=== PATIENT | male | born 1950 | race Caucasian/White ===

== ENCOUNTER 2018-04-20 06:52 | Day surgery (SDC) | payer MEDICARE, OTHER, SELFPAY ==
[2018-04-12 15:14] VITALS: BMI 27.1
[2018-04-20] VITALS (7 sets, daily range): BP systolic 110–136; BP diastolic 65–76; PULSE 54–63; RESP 10–16; TEMP 35.9–36.2; O2SAT 96–98; BMI 27.1
--- NOTE | 2018-04-20 | PATH_ITS ---
[facility] Accession Number: [id number] . 01 Material submitted: . LEFT AXILLA . 01 Clinical history: . CHRONIC INFECTED CYST . 02 Diagnosis: Skin From Left Axilla: Epidermal inclusion cyst, ruptured and severely inflamed. MRV/04/24/2018 . 02 Electronically signed: . Thiago Cannon MD, Pathologist NPI- [id number] . 01 Gross description: . Received in formalin, labeled 1-chronically infected cyst, left axilla, is an unoriented piece of mcfarlane-white puckered skin with underlying tissue (5.1 x 2.2 x 1.2 cm). The underlying tissue is fatty and irregularly firm directly beneath the skin. The resection margin is inked black. Machine Maintenance slices submitted in cassette A1. ([id number]) /MRV . 02 Pathologist provided ICD-10: L72.0 . 02 CPT . 878112 Performed at: 01 [facility] [address], [place], [place] [id number] MD Mark Sanches MD Phone: [phone] Performed at: 02 [facility] [address] [place], [place] [id number] MD Erik Grace MD Phone: [phone]
--- NOTE | 2018-04-20 07:28 | SUR.OPER ---
Supine on padded OR bed, head on pillow, arms secured on padded arm boards at <90 degrees abduction, legs uncrossed, safety belt at thigh, tape over blanket over lower legs.
--- NOTE | 2018-04-20 07:32 | PM.PREOP ---
Pre-operative Note Interval Note Pre-op Check: History & Physical Reviewed by Physician and Exam Performed H&P completed within 30 days and has changed as indicated here:: no change
[2018-04-20] MEDS: LACTATED RINGERS 1,000 ML 42 ML IV (07:35)
[2018-04-20] MEDS: BUPIVACAINE 0.5% W/ EPI (PF) 30 ML VIAL INJ (08:10)
[2018-04-20] MEDS: CEFAZOLIN 2 GM/100 ML FROZ.PIGGY IV (08:17)
[2018-04-20] MEDS: HYDROCODONE/ACET 5/325 TABLET 2 TAB PO (08:50)
--- NOTE | 2018-04-20 09:00 | PM.OP.1 ---
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 SCOAP protocol was followed. Closure Type: primary Specimen(s): other (Cyst) Implants & Drains: None Estimated Blood Loss (mL): 15 Procedure in detail: The patient was placed supine on the operating room table and underwent general LMA anesthesia. He was prepped and draped in the usual fashion. Elliptical incision was made around the lesion in his left axilla. This was done after injecting local anesthetic. The entire area was excised in what appeared to be normal fat. There was 1 small area adjacent to the excised tissue that also looked like it had been inflamed in the past and I removed it. Hemostasis was achieved with cautery. The wound was irrigated. Local anesthetic infiltrated. The space was closed with interrupted 3 0 Polysorb. The subcu was closed with interrupted 4 0 Polysorb and the skin was closed running for Polysorb subcuticular stitch and Steri-Strips. Complications: none Condition: stable Disposition: PACU Plan for aftercare: Follow-up in the office in about 10-14 days
== END 2018-04-20 09:20 | disposition home or self-care (01) ==
PROVIDERS: PCP Internal Medicine; Visit Provider Specialist
PROC: (CPT 11406; principal; 2018-04-20 07:45)
DX: L72.0 Epidermal cyst (principal); I10 Essential (primary) hypertension; K21.9 Gastro-esophageal reflux disease without esophagitis; F17.210 Nicotine dependence, cigarettes, uncomplicated
CPT/HCPCS: 11406; 12035; 88304; J0690; J1100; J2405; J2704; J3010

== ENCOUNTER 2019-02-06 11:52 | Emergency (ER) | payer MEDICARE, BC, SELFPAY ==
[2019-02-06 11:59] VITALS: BP 139/76; PULSE 61; RESP 21; TEMP 37.1; O2SAT 98; BMI 27.1
[2019-02-06 12:00] VITALS: BP 122/67; PULSE 56; RESP 17; O2SAT 97
[2019-02-06 12:01] VITALS: BP 139/76; PULSE 61; RESP 16; TEMP 37.1; O2SAT 98
--- NOTE | 2019-02-06 12:02 | DI.RAD.S_ITS ---
PROCEDURE: XR CHEST 2V INDICATIONS: sob TECHNIQUE: 2 views of the chest were acquired. COMPARISON: [facility], , CHEST 2 VIEW, 04/09/2015, 20:00. FINDINGS: Surgical changes and devices: None. Lungs and pleura: Lungs are clear. No pleural effusions or pneumothorax. Mediastinum: Mediastinal contours are normal. Heart size is normal. Bones and chest wall: No suspicious bony abnormalities. Soft tissues appear unremarkable. IMPRESSION: No acute pulmonary process. Dictated by: Tawana Love M.D. on 02/06/2019 at 12:39 Approved by: Tawana Love M.D. on 02/06/2019 at 12:39
[2019-02-06 12:18] LABS: Add Manual Diff / Slide Review NO; Basophils Absolute Auto 0 /uL (0-100); Basophils Percent Auto 0.7 % (0-2); Eosinophils Absolute Auto 100 /uL (0-450); Eosinophils Percent Auto 2.5 % (2-4); Hematocrit 40.6 % (41-53); Lymphocytes Absolute Auto 1900 /uL (1100-4500); Lymphocytes Percent Auto 35.4 % (25-40); Mean Corpuscular HGB Conc 34.6 % (30-36); Mean Corpuscular Hemoglobin 33.6 PG (26-34); Monocytes Absolute Auto 400 /uL (0-900); Monocytes Percent Auto 7.2 % (3-14); Neutrophils Absolute Auto 2900 /uL (1500-7000); Neutrophils Percent Auto 54.2 % (50-75); Platelet Count 187 X10^3/uL (150-400); Red Blood Cell Count 4.18 X10^6/uL (4.5-5.9); Red Cell Distribution Width 12.9 % (11.6-14.8); White Blood Cell Count 5.4 X10^3/uL (4.5-11.0)
[2019-02-06 12:28] LABS: BUN Creatinine Ratio 17.5 (6-22); Blood Urea Nitrogen 14 mg/dL (9-20); Calcium 9.5 mg/dL (8.4-10.2); Carbon Dioxide 21 mmol/L (22-32); Chloride 109 mmol/L (98-107); Creatine Kinase 38 U/L (55-170); Estimated Glomerular Filt Rate > 60.0 mL/min (>60); Glucose 101 mg/dL (80-110); HEMOLYSIS < 15 (0-50); Lactate (Lactic Acid) 0.9 mmol/L (0.7-2.1); Magnesium 2.1 mg/dL (1.6-2.3); Sodium 139 mmol/L (137-145)
[2019-02-06 12:36] LABS: Influenza A and B by PCR Rapid Negative (Negative)
[2019-02-06 12:36] LABS: B Type Natriuretic Peptide < 100 (<100)
[2019-02-06 12:39] LABS: Troponin I < 0.012 ng/mL (0.01-0.034)
[2019-02-06 12:44] LABS: Procalcitonin < 0.05 ng/mL (<0.5)
[2019-02-06 13:00] VITALS: BP 120/69; PULSE 57; RESP 19; O2SAT 96
--- NOTE | 2019-02-06 13:09 | ED.SOB ---
HPI - SOB/Dyspnea General Chief Complaint: Shortness of Breath/Dyspnea Stated Complaint: SOB COUGH LIGHT HEADED Time Seen by Provider: 02/06/19 12:08 Source: patient Mode of arrival: ambulatory Limitations: no limitations History of Present Illness This is a 68-year-old male who comes to the emergency department with complaint of shortness of breath. Patient states he felt this way for about a month he has had cough and states it started as an upper respiratory infection cold-like symptoms a month ago. He had some colored nasal discharge which has become clear. He has tried magc-ytu-[id number] remedies such as Vicks vapor rub and Robitussin. He took about a week off work on trying to go back to work yesterday and felt sort of lightheaded. 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 He states that this morning when he got up he felt lightheaded, he feels short of breath with exertion, he denies any chest pressure but does feel sort of tight and like his lungs are codeine or congested. Patient had chills and fevers the 1st 2-3 days of symptoms month ago but not any since then. He denies any edema. Patient does have a past medical history of hypertension and takes lisinopril as well as hydrochlorothiazide which she has not taken for the last 2 or 3 days. He also takes allopurinol for gout and Nexium. He has a remote history of prostatectomy for prostate cancer. He does smoke about 10 cigarettes daily, drinks about 3-4 drinks nightly. He occasionally uses and marijuana. Related Data Home Medications Medication Instructions Recorded Confirmed atorvastatin [Lipitor] 20 mg PO BEDTIME #0 07/12/12 02/06/19 lisinopril 10 mg PO QPM #0 07/12/12 02/06/19 allopurinol 100 mg PO QPM 04/14/18 02/06/19 esomeprazole magnesium 40 mg PO QPM 02/06/19 02/06/19 hydrochlorothiazide 12.5 mg PO QPM 02/06/19 02/06/19 Previous Rx's Medication Instructions Recorded albuterol sulfate 2 puff INHALATION Q4-6H PRN #8 gram 02/06/19 prednisone 50 mg PO DAILY #5 tab 02/06/19 Allergies Allergy/AdvReac Type Severity Reaction Status Date / Time No Known Drug Allergies Allergy Verified 05/10/18 14:49 Review of Systems Review of Systems ROS Unobtainable: All systems reviewed & are unremarkable except as noted in HPI and below Constitutional Denies body ache(s), Denies chills, Denies fever(s), Denies lethargy and Denies weakness ENT Ears, Nose, Mouth, and Throat: Reports nasal congestion Cardiovascular Denies chest pain, Denies syncope, Denies rapid heart rate, Denies edema, Denies irregular heart rhythm, Reports lightheadedness, Denies radiating jaw, neck or arm pain, Denies palpitations, Reports dyspnea, Reports dyspnea on exertion and Denies orthopnea Respiratory Denies change in phlegm color, Denies chest congestion, Reports cough, Reports excessive phlegm production, Denies pain on inspiration, Denies pain with cough, Reports dyspnea, Reports dyspnea on exertion and Denies wheezing Gastrointestinal Gastrointestinal: Denies abdominal pain, Denies melena, Denies hematochezia, Denies change in bowel habits, Denies diarrhea, Denies nausea and Denies vomiting Genitourinary Denies hematuria, Denies dysuria, Denies flank pain, Denies urinary frequency and Denies urinary urgency Neurologic Denies syncope and Denies weakness Endocrine Denies palpitations Allergic/Immunologic Denies wheezing PFSH Medical History Elective surgery (Acute) Elevated cholesterol (Acute) GERD (gastroesophageal reflux disease) (Acute) Gout (Acute) H/O ETOH abuse (Acute) HTN (hypertension) (Acute) Surgical History History of shoulder surgery (Acute) Hx of prostatectomy (Acute) Hx of sinus surgery (Acute) S/P excision of vocal cord nodule (Acute) Social History household members: significant other Smoking Status: Current every day smoker alcohol intake: current Social History household members: significant other Smoking Status: Current every day smoker alcohol intake: current Exam Narrative Exam Narrative: GEN: well nourished, well appearing male, alert and oriented x 3, patient appears to be in mild distress. HEENT: Atraumatic, pupils are equal round reactive to light, extraocular movements are intact, nares are clear, TMs are clear with no fluid, there is no conjunctival pallor. Throat is clear without any exudates, erythema, tonsillar enlargement or uvular deviation HEART: Regular rate and rhythm without murmur, clicks, rubs. No edema bilateral lower extremities. LUNGS:Lungs decreased bilaterally to auscultation, no wheezes, rales, crackles, chest moves symmetrically ABD:bowel sounds normal, soft, non-tender, no guarding, rebound, rigidity, no masses noted, no hepatosplenomegaly :No CVA tenderness MSCL: Non-tender, no muscle atrophy, muscles strength 5/5 upper and lower extremities, full range of motion, normal gait NEURO:CN 2-12 intact, sensation normal Initial Vital Signs Initial Vital Signs: Vital Signs Temperature 98.7 F 02/06/19 11:59 Pulse Rate 61 02/06/19 11:59 Respiratory Rate 21 02/06/19 11:59 Blood Pressure 139/76 02/06/19 11:59 Pulse Oximetry 98 02/06/19 11:59 Scores HEART Score Heart Score history: Slightly Suspicious Heart Score EKG: Normal Heart Score Age: > or = 65 years old Heart Score risk factors: 1-2 risk factors Heart Score troponin: < or = to normal limit Heart Score Total: 3 Wells' Criteria for PE Clinical signs and symptoms of PE: No PE is #1 Dx or equally likely: No Heart rate > 100: No Immobilization at least 3 days or surg in previous 4 weeks: No History of PE or DVT: No Hemoptysis: No Malignancy w/Treatment within 6 months or palliative: No Wells' PE Score total: 0 Course Orders Ordered: ED Orders 02/06/19 12:02 Consult to Respiratory Therapy Evaluate & Treat XR chest 2V Stat EKG-12 Lead Stat 02/06/19 12:08 B Type Natriuretic Peptide Stat Basic Metabolic Panel Stat Complete Blood Count AUTO DIFF Stat D Dimer Stat Lactate (Lactic Acid) Stat Magnesium Stat Procalcitonin Stat Troponin & CK Cardiac Panel Stat 02/06/19 12:16 Influenza A and B by PCR Rapid Stat Vital Signs - 8 hr 02/06/19 13:00 02/06/19 13:30 02/06/19 14:30 Pulse Rate 57 L 53 L 49 L Respiratory Rate 19 22 11 L Blood Pressure [Left Arm] 120/69 117/75 114/72 Pulse Oximetry 96 98 98 MDM - SOB/Dyspnea Lab Data Attestation: I reviewed the patient's lab results. Result diagrams: 02/06/19 12:08 02/06/19 12:08 Lab Results 02/06/19 02/06/19 02/06/19 Range/Units 12:08 12:08 12:08 WBC 5.4 (4.5-11.0) X10^3/uL RBC 4.18 L (4.5-5.9) X10^6/uL Hgb 14.0 (13.5-17.5) g/dL Hct 40.6 L (41-53) % MCV 97.0 (80-100) fL MCH 33.6 (26-34) PG MCHC 34.6 (30-36) % RDW 12.9 (11.6-14.8) % Plt Count 187 (150-400) X10^3/uL Neut % (Auto) 54.2 (50-75) % Lymph % (Auto) 35.4 (25-40) % [place] % (Auto) 7.2 (3-14) % Eos % (Auto) 2.5 (2-4) % Baso % (Auto) 0.7 (0-2) % Neut # (Auto) 2900 (9331-3470) /uL Lymph # (Auto) 1900 (0596-5477) /uL [place] # (Auto) 400 (0-900) /uL Eos # (Auto) 100 (0-450) /uL Baso # (Auto) 0 (0-100) /uL D-Dimer (<230) ng/mL Sodium 139 (137-145) mmol/L Potassium 4.0 (3.4-5.1) mmol/L Chloride 109 H (98-107) mmol/L Carbon Dioxide 21 L (22-32) mmol/L BUN 14 (9-20) mg/dL Creatinine 0.80 (0.66-1.25) mg/dL Estimated GFR > 60.0 (>60) mL/min BUN/Creatinine Ratio 17.5 (6-22) Glucose 101 (80-110) mg/dL Lactate (0.7-2.1) mmol/L Calcium 9.5 (8.4-10.2) mg/dL Magnesium 2.1 (1.6-2.3) mg/dL Total Creatine Kinase 38 L (55-170) U/L CK-MB (CK-2) TNP CK-MB (CK-2) Rel Index TNP Troponin I < 0.012 (0.01-0.034) ng/mL B-Natriuretic Peptide < 100 (<100) Procalcitonin < 0.05 (<0.5) ng/mL Influenza A & B (PCR) (Negative) 02/06/19 02/06/19 02/06/19 Range/Units 12:08 12:08 12:16 WBC (4.5-11.0) X10^3/uL RBC (4.5-5.9) X10^6/uL Hgb (13.5-17.5) g/dL Hct (41-53) % MCV (80-100) fL MCH (26-34) PG MCHC (30-36) % RDW (11.6-14.8) % Plt Count (150-400) X10^3/uL Neut % (Auto) (50-75) % Lymph % (Auto) (25-40) % [place] % (Auto) (3-14) % Eos % (Auto) (2-4) % Baso % (Auto) (0-2) % Neut # (Auto) (0598-4133) /uL Lymph # (Auto) (0501-2715) /uL [place] # (Auto) (0-900) /uL Eos # (Auto) (0-450) /uL Baso # (Auto) (0-100) /uL D-Dimer < 200 (<230) ng/mL Sodium (137-145) mmol/L Potassium (3.4-5.1) mmol/L Chloride (98-107) mmol/L Carbon Dioxide (22-32) mmol/L BUN (9-20) mg/dL Creatinine (0.66-1.25) mg/dL Estimated GFR (>60) mL/min BUN/Creatinine Ratio (6-22) Glucose (80-110) mg/dL Lactate 0.9 (0.7-2.1) mmol/L Calcium (8.4-10.2) mg/dL Magnesium (1.6-2.3) mg/dL Total Creatine Kinase (55-170) U/L CK-MB (CK-2) CK-MB (CK-2) Rel Index Troponin I (0.01-0.034) ng/mL B-Natriuretic Peptide (<100) Procalcitonin (<0.5) ng/mL Influenza A & B (PCR) Negative (Negative) Imaging Data Chest x-ray: Radiologist's impression: [address] [address] XRay Report Signed Patient: Clay To GMR#: [id number] : 9Acct:[id number] Age/Sex: 68 / MDate of Service: 02/06/19 Loc: ED Accession Number: [id number] Procedure: XR chest 2V Ordering Provider: Lolita Sands D.O. PROCEDURE: XR CHEST 2V INDICATIONS: sob TECHNIQUE: 2 views of the chest were acquired. COMPARISON: [facility], , CHEST 2 VIEW, 04/09/2015, 20:00. FINDINGS: Surgical changes and devices: None. Lungs and pleura: Lungs are clear. No pleural effusions or pneumothorax. Mediastinum: Mediastinal contours are normal. Heart size is normal. Bones and chest wall: No suspicious bony abnormalities. Soft tissues appear unremarkable. IMPRESSION: No acute pulmonary process. Dictated by: Tawana Love M.D. on 02/06/2019 at 12:39 Approved by: Tawana Love M.D. on 02/06/2019 at 12:39 ECG Data Attestation: I personally reviewed and interpreted this ECG as follows: Prior ECG tracings: available for review Interpretation: sinus bradycardia with a rate of 59 [place] interval 168 QRS of 93 and QTC of 406. left axis deviation no ST elevation or depression. Patient's prior EKG from 07/12/2012 which appears similar. MDM Narrative Medical decision making narrative: 68-year-old male comes in he has improved while sitting in the department. Has normal vitals. Chest x-ray and lab work did not show any clear changes. Discussed with patient he does have a lot of 40+ pack year history of smoking at close to a pack per day. We discussed that he could be having some COPD. He has even using his girlfriend's albuterol which has been helpful but then his symptoms return. We discussed starting him on some steroids as well as continuing with albuterol and we can give him his own inhaler. If this improves his symptoms he should follow up with his primary care for possibly a steroid inhaler. If he is worsening or not having any improvement he needs to return. Patient is comfortable with this plan. Discharge Plan Departure Patient Disposition: Home Clinical Impression: Dyspnea, COPD (chronic obstructive pulmonary disease) Discharge Date/Time: 02/06/19 15:06 Interventions: ED Discharge Assessment Last Done: 02/06/19 15:06 Instructions: DI for Shortness of Breath Activity Restrictions/Additional Instructions: Follow-up with her primary care physician in the next week for recheck. If you are improved discussed with them about possibly using a steroid inhaler in the future. Take oral steroids once daily until gone. You may use albuterol inhaler 1-2 puffs every 4 hr as needed for wheezing or shortness of breath. Return to the emergency department for new pain, rapidly worsening shortness breath, passing, persistent vomiting, abdominal pain, new swelling in your lower extremities or other new or concerning symptoms. Prescriptions: New prednisone 50 mg tablet 50 mg PO DAILY Qty: 5 RF: 0 albuterol sulfate 90 mcg/actuation HFA aerosol inhaler 2 puff INHALATION Q4-6H PRN (Reason: shortness of breath or wheezing) Qty: 8 RF: 0 No Action atorvastatin [Lipitor] 20 MG tablet 20 mg PO BEDTIME Qty: 0 RF: 0 lisinopril 10 MG tablet 10 mg PO QPM Qty: 0 RF: 0 esomeprazole magnesium 40 mg capsule,delayed release(DR/EC) 40 mg PO QPM RF: 0 hydrochlorothiazide 12.5 mg capsule 12.5 mg PO QPM RF: 0 allopurinol 100 mg Tablet 100 mg PO QPM RF: 0 Referrals: Jerson Webstre MD [Primary Care Provider] -
--- NOTE | 2019-02-06 13:14 | ED_ITS ---
HPI - SOB/Dyspnea General Chief Complaint: Shortness of Breath/Dyspnea Stated Complaint: SOB COUGH LIGHT HEADED Time Seen by Provider: 02/06/19 12:08 Source: patient Mode of arrival: ambulatory Limitations: no limitations History of Present Illness This is a 68-year-old male who comes to the emergency department with complaint of shortness of breath. Patient states he felt this way for about a month he has had cough and states it started as an upper respiratory infection cold-like symptoms a month ago. He had some colored nasal discharge which has become clear. He has tried [id number] remedies such as Vicks vapor rub and Robitussin. He took about a week off work on trying to go back to work yesterday and felt sort of lightheaded. 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 He states that this morning when he got up he felt lightheaded, he feels short of breath with exertion, he denies any chest pressure but does feel sort of tight and like his lungs are codeine or congested. Patient had chills and fevers the 1st 2-3 days of symptoms month ago but not any since then. He denies any edema. Patient does have a past medical history of hypertension and takes lisinopril as well as hydrochlorothiazide which she has not taken for the last 2 or 3 days. He also takes allopurinol for gout and Nexium. He has a remote history of prostatectomy for prostate cancer. He does smoke about 10 cigarettes daily, drinks about 3-4 drinks nightly. He occasionally uses and marijuana. Related Data Home Medications Medication Instructions Recorded Confirmed atorvastatin [Lipitor] 20 mg PO BEDTIME #0 07/12/12 02/06/19 lisinopril 10 mg PO QPM #0 07/12/12 02/06/19 allopurinol 100 mg PO QPM 04/14/18 02/06/19 esomeprazole magnesium 40 mg PO QPM 02/06/19 02/06/19 hydrochlorothiazide 12.5 mg PO QPM 02/06/19 02/06/19 Previous Rx's Medication Instructions Recorded albuterol sulfate 2 puff INHALATION Q4-6H PRN #8 gram 02/06/19 prednisone 50 mg PO DAILY #5 tab 02/06/19 Allergies Allergy/AdvReac Type Severity Reaction Status Date / Time No Known Drug Allergies Allergy Verified 05/10/18 14:49 Review of Systems Review of Systems ROS Unobtainable: All systems reviewed & are unremarkable except as noted in HPI and below Constitutional Denies body ache(s), Denies chills, Denies fever(s), Denies lethargy and Denies weakness ENT Ears, Nose, Mouth, and Throat: Reports nasal congestion Cardiovascular Denies chest pain, Denies syncope, Denies rapid heart rate, Denies edema, Denies irregular heart rhythm, Reports lightheadedness, Denies radiating jaw, neck or arm pain, Denies palpitations, Reports dyspnea, Reports dyspnea on exertion and Denies orthopnea Respiratory Denies change in phlegm color, Denies chest congestion, Reports cough, Reports excessive phlegm production, Denies pain on inspiration, Denies pain with cough, Reports dyspnea, Reports dyspnea on exertion and Denies wheezing Gastrointestinal Gastrointestinal: Denies abdominal pain, Denies melena, Denies hematochezia, Denies change in bowel habits, Denies diarrhea, Denies nausea and Denies vomiting Genitourinary Denies hematuria, Denies dysuria, Denies flank pain, Denies urinary frequency and Denies urinary urgency Neurologic Denies syncope and Denies weakness Endocrine Denies palpitations Allergic/Immunologic Denies wheezing PFSH Medical History Elective surgery (Acute) Elevated cholesterol (Acute) GERD (gastroesophageal reflux disease) (Acute) Gout (Acute) H/O ETOH abuse (Acute) HTN (hypertension) (Acute) Surgical History History of shoulder surgery (Acute) Hx of prostatectomy (Acute) Hx of sinus surgery (Acute) S/P excision of vocal cord nodule (Acute) Social History household members: significant other Smoking Status: Current every day smoker alcohol intake: current Social History household members: significant other Smoking Status: Current every day smoker alcohol intake: current Exam Narrative Exam Narrative: GEN: well nourished, well appearing male, alert and oriented x 3, patient appears to be in mild distress. HEENT: Atraumatic, pupils are equal round reactive to light, extraocular movements are intact, nares are clear, TMs are clear with no fluid, there is no conjunctival pallor. Throat is clear without any exudates, erythema, tonsillar enlargement or uvular deviation HEART: Regular rate and rhythm without murmur, clicks, rubs. No edema bilateral lower extremities. LUNGS:Lungs decreased bilaterally to auscultation, no wheezes, rales, crackles, chest moves symmetrically ABD:bowel sounds normal, soft, non-tender, no guarding, rebound, rigidity, no masses noted, no hepatosplenomegaly :No CVA tenderness MSCL: Non-tender, no muscle atrophy, muscles strength 5/5 upper and lower extremities, full range of motion, normal gait NEURO:CN 2-12 intact, sensation normal Initial Vital Signs Initial Vital Signs: Vital Signs Temperature 98.7 F 02/06/19 11:59 Pulse Rate 61 02/06/19 11:59 Respiratory Rate 21 02/06/19 11:59 Blood Pressure 139/76 02/06/19 11:59 Pulse Oximetry 98 02/06/19 11:59 Scores HEART Score Heart Score history: Slightly Suspicious Heart Score EKG: Normal Heart Score Age: > or = 65 years old Heart Score risk factors: 1-2 risk factors Heart Score troponin: < or = to normal limit Heart Score Total: 3 Wells' Criteria for PE Clinical signs and symptoms of PE: No PE is #1 Dx or equally likely: No Heart rate > 100: No Immobilization at least 3 days or surg in previous 4 weeks: No History of PE or DVT: No Hemoptysis: No Malignancy w/Treatment within 6 months or palliative: No Wells' PE Score total: 0 Course Orders Ordered: ED Orders 02/06/19 12:02 Consult to Respiratory Therapy Evaluate & Treat XR chest 2V Stat EKG-12 Lead Stat 02/06/19 12:08 B Type Natriuretic Peptide Stat Basic Metabolic Panel Stat Complete Blood Count AUTO DIFF Stat D Dimer Stat Lactate (Lactic Acid) Stat Magnesium Stat Procalcitonin Stat Troponin & CK Cardiac Panel Stat 02/06/19 12:16 Influenza A and B by PCR Rapid Stat Vital Signs - 8 hr 02/06/19 13:00 02/06/19 13:30 02/06/19 14:30 Pulse Rate 57 L 53 L 49 L Respiratory Rate 19 22 11 L Blood Pressure [Left Arm] 120/69 117/75 114/72 Pulse Oximetry 96 98 98 MDM - SOB/Dyspnea Lab Data Attestation: I reviewed the patient's lab results. Result diagrams: 02/06/19 12:08 02/06/19 12:08 Lab Results 02/06/19 02/06/19 02/06/19 Range/Units 12:08 12:08 12:08 WBC 5.4 (4.5-11.0) X10^3/uL RBC 4.18 L (4.5-5.9) X10^6/uL Hgb 14.0 (13.5-17.5) g/dL Hct 40.6 L (41-53) % MCV 97.0 (80-100) fL MCH 33.6 (26-34) PG MCHC 34.6 (30-36) % RDW 12.9 (11.6-14.8) % Plt Count 187 (150-400) X10^3/uL Neut % (Auto) 54.2 (50-75) % Lymph % (Auto) 35.4 (25-40) % Floyd % (Auto) 7.2 (3-14) % Eos % (Auto) 2.5 (2-4) % Baso % (Auto) 0.7 (0-2) % Neut # (Auto) 2900 (8734-2548) /uL Lymph # (Auto) 1900 (9638-8782) /uL Floyd # (Auto) 400 (0-900) /uL Eos # (Auto) 100 (0-450) /uL Baso # (Auto) 0 (0-100) /uL D-Dimer (<230) ng/mL Sodium 139 (137-145) mmol/L Potassium 4.0 (3.4-5.1) mmol/L Chloride 109 H (98-107) mmol/L Carbon Dioxide 21 L (22-32) mmol/L BUN 14 (9-20) mg/dL Creatinine 0.80 (0.66-1.25) mg/dL Estimated GFR > 60.0 (>60) mL/min BUN/Creatinine Ratio 17.5 (6-22) Glucose 101 (80-110) mg/dL Lactate (0.7-2.1) mmol/L Calcium 9.5 (8.4-10.2) mg/dL Magnesium 2.1 (1.6-2.3) mg/dL Total Creatine Kinase 38 L (55-170) U/L CK-MB (CK-2) TNP CK-MB (CK-2) Rel Index TNP Troponin I < 0.012 (0.01-0.034) ng/mL B-Natriuretic Peptide < 100 (<100) Procalcitonin < 0.05 (<0.5) ng/mL Influenza A & B (PCR) (Negative) 02/06/19 02/06/19 02/06/19 Range/Units 12:08 12:08 12:16 WBC (4.5-11.0) X10^3/uL RBC (4.5-5.9) X10^6/uL Hgb (13.5-17.5) g/dL Hct (41-53) % MCV (80-100) fL MCH (26-34) PG MCHC (30-36) % RDW (11.6-14.8) % Plt Count (150-400) X10^3/uL Neut % (Auto) (50-75) % Lymph % (Auto) (25-40) % Floyd % (Auto) (3-14) % Eos % (Auto) (2-4) % Baso % (Auto) (0-2) % Neut # (Auto) (7864-6335) /uL Lymph # (Auto) (3939-7909) /uL Floyd # (Auto) (0-900) /uL Eos # (Auto) (0-450) /uL Baso # (Auto) (0-100) /uL D-Dimer < 200 (<230) ng/mL Sodium (137-145) mmol/L Potassium (3.4-5.1) mmol/L Chloride (98-107) mmol/L Carbon Dioxide (22-32) mmol/L BUN (9-20) mg/dL Creatinine (0.66-1.25) mg/dL Estimated GFR (>60) mL/min BUN/Creatinine Ratio (6-22) Glucose (80-110) mg/dL Lactate 0.9 (0.7-2.1) mmol/L Calcium (8.4-10.2) mg/dL Magnesium (1.6-2.3) mg/dL Total Creatine Kinase (55-170) U/L CK-MB (CK-2) CK-MB (CK-2) Rel Index Troponin I (0.01-0.034) ng/mL B-Natriuretic Peptide (<100) Procalcitonin (<0.5) ng/mL Influenza A & B (PCR) Negative (Negative) Imaging Data Chest x-ray: Radiologist's impression: [address] [address] XRay Report Signed Patient: Clay To GMR#: [id number] : 9Acct:[id number] Age/Sex: 68 / MDate of Service: 02/06/19 Loc: ED Accession Number: [id number] Procedure: XR chest 2V Ordering Provider: Lolita Sands D.O. PROCEDURE: XR CHEST 2V INDICATIONS: sob TECHNIQUE: 2 views of the chest were acquired. COMPARISON: Merged With [facility], , CHEST 2 VIEW, 04/09/2015, 20:00. FINDINGS: Surgical changes and devices: None. Lungs and pleura: Lungs are clear. No pleural effusions or pneumothorax. Mediastinum: Mediastinal contours are normal. Heart size is normal. Bones and chest wall: No suspicious bony abnormalities. Soft tissues appear unremarkable. IMPRESSION: No acute pulmonary process. Dictated by: Tawana Love M.D. on 02/06/2019 at 12:39 Approved by: Tawana Love M.D. on 02/06/2019 at 12:39 ECG Data Attestation: I personally reviewed and interpreted this ECG as follows: Prior ECG tracings: available for review Interpretation: sinus bradycardia with a rate of 59 MN interval 168 QRS of 93 and QTC of 406. left axis deviation no ST elevation or depression. Patient's prior EKG from 07/12/2012 which appears similar. MDM Narrative Medical decision making narrative: 68-year-old male comes in he has improved while sitting in the department. Has normal vitals. Chest x-ray and lab work did not show any clear changes. Discussed with patient he does have a lot of 40+ pack year history of smoking at close to a pack per day. We discussed that he could be having some COPD. He has even using his girlfriend's albuterol which has been helpful but then his symptoms return. We discussed starting him on some steroids as well as continuing with albuterol and we can give him his own inhaler. If this improves his symptoms he should follow up with his primary care for possibly a steroid inhaler. If he is worsening or not having any improvement he needs to return. Patient is comfortable with this plan. Discharge Plan Departure Patient Disposition: Home Clinical Impression: Dyspnea, COPD (chronic obstructive pulmonary disease) Discharge Date/Time: 02/06/19 15:06 Interventions: ED Discharge Assessment Last Done: 02/06/19 15:06 Instructions: DI for Shortness of Breath Activity Restrictions/Additional Instructions: Follow-up with her primary care physician in the next week for recheck. If you are improved discussed with them about possibly using a steroid inhaler in the future. Take oral steroids once daily until gone. You may use albuterol inhaler 1-2 puffs every 4 hr as needed for wheezing or shortness of breath. Return to the emergency department for new pain, rapidly worsening shortness breath, passing, persistent vomiting, abdominal pain, new swelling in your lower extremities or other new or concerning symptoms. Prescriptions: New prednisone 50 mg tablet 50 mg PO DAILY Qty: 5 RF: 0 albuterol sulfate 90 mcg/actuation HFA aerosol inhaler 2 puff INHALATION Q4-6H PRN (Reason: shortness of breath or wheezing) Qty: 8 RF: 0 No Action atorvastatin [Lipitor] 20 MG tablet 20 mg PO BEDTIME Qty: 0 RF: 0 lisinopril 10 MG tablet 10 mg PO QPM Qty: 0 RF: 0 esomeprazole magnesium 40 mg capsule,delayed release(DR/EC) 40 mg PO QPM RF: 0 hydrochlorothiazide 12.5 mg capsule 12.5 mg PO QPM RF: 0 allopurinol 100 mg Tablet 100 mg PO QPM RF: 0 Referrals: Jerson Webster MD [Primary Care Provider] -
[2019-02-06 13:30] VITALS: BP 117/75; PULSE 53; RESP 22; O2SAT 98
[2019-02-06 14:00] LABS: D Dimer < 200 ng/mL (<230)
[2019-02-06 14:30] VITALS: BP 114/72; PULSE 49; RESP 11; O2SAT 98
== END 2019-02-06 15:06 | disposition home or self-care (01) ==
PROVIDERS: Emergency Provider Emergency Medicine; PCP Internal Medicine
DX: J44.9 Chronic obstructive pulmonary disease, unspecified (principal)
CPT/HCPCS: 36591; 71046; 80048; 82550; 83605; 83735; 83880; 84145; 84484; 85025; 85379; 87400; 93005; 99283; 99285

== ENCOUNTER → 2019-11-12 10:39 | Outpatient (CLI) | payer MEDICARE, BC, SELFPAY ==
--- NOTE | 2019-11-12 | DI.RAD.S_ITS ---
PROCEDURE: XR ANKLE RT 2V INDICATIONS: R ANKLE PAIN TECHNIQUE: 2 views of the ankle were acquired. COMPARISON: None. FINDINGS: Bones: No fractures or dislocations. Ankle mortise is normally aligned. No suspicious bony lesions. Tibiotalar joint degeneration, with spurring and sclerosis. Lateral sideplate and screw fixation of the distal fibula appears intact and no evidence of hardware loosening. Chronic appearing ossicle seen at the anterior inferior calcaneus on the lateral view, potentially age-indeterminate fracture fragment. Punctate chronic appearing calcific density projecting adjacent to the anterior calcaneal process. Plantar calcaneal spur. Diffuse midfoot degenerative spurring and sclerosis Soft tissues: No tibiotalar joint effusion. Achilles tendon appears normal. IMPRESSION: Expected postoperative alignment of plate-screw fixation of the distal fibula Tibiotalar, diffuse hindfoot and midfoot joint degeneration Plantar calcaneal spur Dictated by: Kp Menchaca M.D. on 11/12/2019 at 12:48 Approved by: Kp Menchaca M.D. on 11/12/2019 at 12:51
== END ==
PROVIDERS: PCP Internal Medicine; Visit Provider Internal Medicine
DX: M25.571 Pain in right ankle and joints of right foot (principal); M19.071 Primary osteoarthritis, right ankle and foot; M77.31 Calcaneal spur, right foot
CPT/HCPCS: 73600

== ENCOUNTER 2019-12-05 12:51 | Emergency (ER) | payer MEDICARE, BC, SELFPAY ==
[2019-12-05 12:52] VITALS: BP 146/82; PULSE 78; RESP 16; TEMP 36.4; O2SAT 99; BMI 27.1
--- NOTE | 2019-12-05 13:08 | DI.RAD.S_ITS ---
PROCEDURE: XR CHEST 1V INDICATIONS: chest pain TECHNIQUE: One view of the chest was acquired. COMPARISON: [facility], CHEST 2 VIEW, 07/14/2012, 13:49. [facility], CHEST 2 VIEW, 04/09/2015, 20:00. [facility], , XR CHEST 2V, 02/06/2019, 12:17. FINDINGS: Surgical changes and devices: A left axillary clips are seen. Lungs and pleura: Lungs are clear. No pleural effusions or pneumothorax. Mediastinum: The cardiac contours are within normal limits. The aorta demonstrates calcification and tortuosity. Bones and chest wall: No suspicious bony lesions. Age-appropriate bony degenerative changes are seen. Overlying soft tissues appear unremarkable. IMPRESSION: No acute cardiopulmonary process is seen. Postoperative and degenerative changes are seen. Dictated by: Wu Ansari M.D. on 12/05/2019 at 12:43 Approved by: Wu Ansari M.D. on 12/05/2019 at 12:45
[2019-12-05 13:17] VITALS: BP 140/82; PULSE 80; RESP 16; O2SAT 99
[2019-12-05] MEDS: ASPIRIN 81 MG CHEW TAB 324 MG PO (13:19)
[2019-12-05 13:22] LABS: Add Manual Diff / Slide Review NO; Basophils Absolute Auto 0 /uL (0-100); Basophils Percent Auto 0.8 % (0-2); Eosinophils Absolute Auto 100 /uL (0-450); Eosinophils Percent Auto 1.8 % (2-4); Hematocrit 43.5 % (41-53); Hemoglobin 15.1 g/dL (13.5-17.5); Lymphocytes Absolute Auto 1700 /uL (1100-4500); Lymphocytes Percent Auto 28.2 % (25-40); Mean Corpuscular HGB Conc 34.7 % (30-36); Mean Corpuscular Hemoglobin 33.6 PG (26-34); Mean Corpuscular Volume 96.8 fL (80-100); Monocytes Absolute Auto 300 /uL (0-900); Monocytes Percent Auto 4.5 % (3-14); Neutrophils Absolute Auto 4000 /uL (1500-7000); Neutrophils Percent Auto 64.7 % (50-75); Platelet Count 198 X10^3/uL (150-400); Red Blood Cell Count 4.49 X10^6/uL (4.5-5.9); Red Cell Distribution Width 13.4 % (11.6-14.8); White Blood Cell Count 6.2 X10^3/uL (4.5-11.0)
--- NOTE | 2019-12-05 13:28 | ED.CHESTPAIN ---
HPI - Chest Pain General Chief Complaint: Chest Pain Stated Complaint: tight chest, left arm sore Time Seen by Provider: 12/05/19 13:00 Source: patient Mode of arrival: Ambulatory Limitations: no limitations History of Present Illness HPI narrative: The patient is a 69-year-old male with no previous history of myocardial infarction or angina. He was driving on his way to [employer] when he just suddenly didn't feel well. His left arm started to shake and he felt weak. He was having mild chest tightness without any significant shortness of breath. He did not feel dizzy or lightheaded. He did not feel as though he was going to pass out. The discomfort did not radiate to his back neck jaw shoulders. He had no abdominal pain nausea vomiting he has had no indigestion or heartburn. He has had no recent fever chills or sweats. He has had normal bowel movements without melena hematochezia. The patient had a difficult time describing exactly what was wrong with him other than a discomfort in his upper left arm. His complaints were vague. Related Data Home Medications Medication Instructions Recorded Confirmed atorvastatin [Lipitor] 20 mg PO BEDTIME #0 07/12/12 02/06/19 lisinopril 10 mg PO QPM #0 07/12/12 02/06/19 allopurinol 100 mg PO QPM 04/14/18 02/06/19 esomeprazole magnesium 40 mg PO QPM 02/06/19 02/06/19 hydrochlorothiazide 12.5 mg PO QPM 02/06/19 02/06/19 Previous Rx's Medication Instructions Recorded albuterol sulfate 2 puff INHALATION Q4-6H PRN #8 gram 02/06/19 prednisone 50 mg PO DAILY #5 tab 02/06/19 aspirin 81 mg PO DAILY #1 tab 12/05/19 ibuprofen 600 mg PO Q6H PRN #20 tab NS 12/05/19 Allergies Allergy/AdvReac Type Severity Reaction Status Date / Time No Known Drug Allergies Allergy Verified 05/10/18 14:49 Review of Systems Review of Systems Narrative: All systems were negative except for those mentioned in the history of present illness. Patient History Medical History Elective surgery (Acute) Elevated cholesterol (Acute) GERD (gastroesophageal reflux disease) (Acute) Gout (Acute) H/O ETOH abuse (Acute) HTN (hypertension) (Acute) Surgical History History of shoulder surgery (Acute) Hx of prostatectomy (Acute) Hx of sinus surgery (Acute) S/P excision of vocal cord nodule (Acute) Social History household members: significant other Smoking Status: Current every day smoker alcohol intake: current additional social history: The patient admits to smoking cigarettes but does not drink alcohol or use any drugs. Smoking Status: Current every day smoker alcohol intake frequency: 0-2 drinks per day Substance Use Type: marijuana Exam Narrative Exam Narrative: PHYSICAL EXAM: CONSTITUTIONAL: Awake, Alert, Oriented, Coherent, Cooperative in NAD. Does not appear toxic or ill. HEAD: AT/NC EENT: PERRL, FROM of eyes, no discharge, no nystagmus No drainage from the ears, Tympanic membranes intact bilaterally, clear EAC No epistaxis or nasal drainage Oral mucosa is moist and pink, posterior pharynx is without erythema or exudate. NECK: Supple, no obvious JVD, Trachea is midline without stridor, no palpable LN or masses. SPINE: No gross deformity, no palpable tenderness of the cervical, thoracic, lumbar or sacral spine. No CVA tenderness. THORAX: No deformity, retractions, chest wall tenderness, subcutaneous air or crepitice. LUNGS: Clear with symmetrical breath sounds without respiratory distress HEART: Normal heart tones, regular rhythm and rate without murmur. ABDOMEN: Soft, non-tender, normal bowel sounds without guarding, rebound, rigidity or palpable mass or organomegaly. EXTREMITIES: No edema, cyanosis, deformity or tenderness. SKIN: No rash, bruising, petechiae or purpura. NEURO: Awake, alert, oriented, conversive, cranial nerves II-XII are symmetrical and normal, moves all 4 extremities and is ambulatory Initial Vital Signs Initial Vital Signs: Vital Signs Temperature 97.5 F L 12/05/19 12:52 Pulse Rate 78 12/05/19 12:52 Respiratory Rate 16 12/05/19 12:52 Blood Pressure 146/82 H 12/05/19 12:52 Pulse Oximetry 99 12/05/19 12:52 Course Orders Ordered: ED Orders 12/05/19 15:41 Troponin I Stat Discontinued Medications Aspirin (Aspirin Chew) 324 mg PO NOW ONE Stop: 12/05/19 13:12 Last Admin: 12/05/19 13:19 Dose: 324 mg Documented by: CLAIR Nitroglycerin (Nitrostat) 0.4 mg SL [id number] PRN PRN Reason: Chest Pain Reevaluation(s) Reevaluation #1: The patient states that he is not having any chest pain. He took the aspirin but did not take the nitroglycerin. He is not having any discomfort at this time. Time: 14:24 Vital Signs Vital signs: Vital Signs - 8 hr 12/05/19 15:00 12/05/19 16:03 Pulse Rate 62 60 Respiratory Rate 18 18 Blood Pressure [Left Arm] 128/82 136/84 Pulse Oximetry 96 97 MDM - Chest Pain Lab Data Result diagrams: 12/05/19 13:15 12/05/19 13:15 Labs: Lab Results 12/05/19 12/05/19 12/05/19 Range/Units 13:15 13:15 13:15 WBC 6.2 (4.5-11.0) X10^3/uL RBC 4.49 L (4.5-5.9) X10^6/uL Hgb 15.1 (13.5-17.5) g/dL Hct 43.5 (41-53) % MCV 96.8 (80-100) fL MCH 33.6 (26-34) PG MCHC 34.7 (30-36) % RDW 13.4 (11.6-14.8) % Plt Count 198 (150-400) X10^3/uL Neut % (Auto) 64.7 (50-75) % Lymph % (Auto) 28.2 (25-40) % [place] % (Auto) 4.5 (3-14) % Eos % (Auto) 1.8 L (2-4) % Baso % (Auto) 0.8 (0-2) % Neut # (Auto) 4000 (7933-3340) /uL Lymph # (Auto) 1700 (2311-3487) /uL [place] # (Auto) 300 (0-900) /uL Eos # (Auto) 100 (0-450) /uL Baso # (Auto) 0 (0-100) /uL PT 11.1 (10.1-12.7) SECONDS INR 1.0 (0.9-1.3) APTT 30 (26.4-36.2) SECONDS Sodium 141 (137-145) mmol/L Potassium 4.1 (3.4-5.1) mmol/L Chloride 107 (98-107) mmol/L Carbon Dioxide 27 (22-32) mmol/L BUN 15 (9-20) mg/dL Creatinine 0.90 (0.66-1.25) mg/dL Estimated GFR > 60.0 (>60) mL/min BUN/Creatinine Ratio 16.7 (6-22) Glucose 105 (80-110) mg/dL Calcium 9.9 (8.4-10.2) mg/dL Magnesium (1.6-2.3) mg/dL Total Bilirubin 0.6 (0.2-1.3) mg/dL AST 55 (17-59) IU/L ALT 42 (<50) IU/L Alkaline Phosphatase 76 (38-126) U/L Total Creatine Kinase 31 L (55-170) U/L CK-MB (CK-2) TNP CK-MB (CK-2) Rel Index TNP Troponin I < 0.012 (0.01-0.034) ng/mL Total Protein 7.3 (6.3-8.2) g/dL Albumin 4.3 (3.5-5.0) g/dL Globulin 3.0 (1.7-4.1) g/dL Albumin/Globulin Ratio 1.4 (1.0-2.8) Lipase 54 (23-300) U/L 12/05/19 12/05/19 Range/Units 13:15 15:41 WBC (4.5-11.0) X10^3/uL RBC (4.5-5.9) X10^6/uL Hgb (13.5-17.5) g/dL Hct (41-53) % MCV (80-100) fL MCH (26-34) PG MCHC (30-36) % RDW (11.6-14.8) % Plt Count (150-400) X10^3/uL Neut % (Auto) (50-75) % Lymph % (Auto) (25-40) % [place] % (Auto) (3-14) % Eos % (Auto) (2-4) % Baso % (Auto) (0-2) % Neut # (Auto) (9473-1403) /uL Lymph # (Auto) (3953-7454) /uL [place] # (Auto) (0-900) /uL Eos # (Auto) (0-450) /uL Baso # (Auto) (0-100) /uL PT (10.1-12.7) SECONDS INR (0.9-1.3) APTT (26.4-36.2) SECONDS Sodium (137-145) mmol/L Potassium (3.4-5.1) mmol/L Chloride (98-107) mmol/L Carbon Dioxide (22-32) mmol/L BUN (9-20) mg/dL Creatinine (0.66-1.25) mg/dL Estimated GFR (>60) mL/min BUN/Creatinine Ratio (6-22) Glucose (80-110) mg/dL Calcium (8.4-10.2) mg/dL Magnesium 1.8 (1.6-2.3) mg/dL Total Bilirubin (0.2-1.3) mg/dL AST (17-59) IU/L ALT (<50) IU/L Alkaline Phosphatase (38-126) U/L Total Creatine Kinase (55-170) U/L CK-MB (CK-2) CK-MB (CK-2) Rel Index Troponin I < 0.012 (0.01-0.034) ng/mL Total Protein (6.3-8.2) g/dL Albumin (3.5-5.0) g/dL Globulin (1.7-4.1) g/dL Albumin/Globulin Ratio (1.0-2.8) Lipase (23-300) U/L ECG Data Attestation: I personally reviewed and interpreted this ECG as follows: Interpretation: The patient's EKG obtained on December 05 at 13:0 4:18 a.m. reveals a ventricular rate of 78 normal MN interval QRS 95 milliseconds duration QTC is normal. [place] is left axis deviation there are Q-waves in leads V1 flipped T-waves in III inverted T-wave in V1. There are nonspecific slight ST segment depressions in leads V3 through V6 I and aVL which may represent lateral wall ischemia. Discharge Plan Departure Patient Disposition: Home Clinical Impression: Atypical chest pain, Chest pain, Left arm pain Discharge Date/Time: 12/05/19 16:37 Instructions: DI for Angina, DI for Atypical Chest Pain, DI for Chest Pain Activity Restrictions/Additional Instructions: Return to the emergency department if you developed recurring chest pain that lasts longer than 15 to 20 minutes. If the chest pain radiates to your neck and jaw. If you develop shortness of breath racing of the heart dizziness or passing-out you need to return to the emergency department. Otherwise follow-up with your primary care physician for possible referral to [employer] [facility] for a stress test. Take 1 baby aspirin per day and use the ibuprofen as prescribed for any aches and pains. Prescriptions: New aspirin 81 mg tablet,delayed release (DR/EC) 81 mg PO DAILY Qty: 1 RF: 0 ibuprofen 600 mg tablet 600 mg PO Q6H PRN (Reason: atypical chest pain) Qty: 20 RF: 0 Continued atorvastatin [Lipitor] 20 MG tablet 20 mg PO BEDTIME Qty: 0 RF: 0 lisinopril 10 MG tablet 10 mg PO QPM Qty: 0 RF: 0 esomeprazole magnesium 40 mg capsule,delayed release(DR/EC) 40 mg PO QPM RF: 0 hydrochlorothiazide 12.5 mg capsule 12.5 mg PO QPM RF: 0 prednisone 50 mg tablet 50 mg PO DAILY Qty: 5 RF: 0 albuterol sulfate 90 mcg/actuation HFA aerosol inhaler 2 puff INHALATION Q4-6H PRN (Reason: shortness of breath or wheezing) Qty: 8 RF: 0 allopurinol 100 mg Tablet 100 mg PO QPM RF: 0 Referrals: Jerson Webster MD [Primary Care Provider] -
[2019-12-05 13:29] LABS: Prothrombin Time 11.1 SECONDS (10.1-12.7)
[2019-12-05 13:32] LABS: PTT Partial Thromboplastin Tim 30 SECONDS (26.4-36.2)
[2019-12-05 13:35] LABS: Alanine Aminotransferase 42 IU/L (<50); Albumin 4.3 g/dL (3.5-5.0); Albumin Globulin Ratio 1.4 (1.0-2.8); Alkaline Phosphatase 76 U/L (38-126); Aspartate Aminotransferase 55 IU/L (17-59); BUN Creatinine Ratio 16.7 (6-22); Bilirubin Total 0.6 mg/dL (0.2-1.3); Blood Urea Nitrogen 15 mg/dL (9-20); Calcium 9.9 mg/dL (8.4-10.2); Carbon Dioxide 27 mmol/L (22-32); Chloride 107 mmol/L (98-107); Creatine Kinase 31 U/L (55-170); Estimated Glomerular Filt Rate > 60.0 mL/min (>60); Glucose 105 mg/dL (80-110); HEMOLYSIS 17 (0-50); Lipase 54 U/L (23-300); Magnesium 1.8 mg/dL (1.6-2.3); Potassium 4.1 mmol/L (3.4-5.1); Sodium 141 mmol/L (137-145); Total Protein 7.3 g/dL (6.3-8.2)
[2019-12-05 13:45] VITALS: BP 134/84; PULSE 69; RESP 19; O2SAT 97
[2019-12-05 13:46] LABS: Troponin I < 0.012 ng/mL (0.01-0.034)
[2019-12-05 14:33] VITALS: BP 130/81; PULSE 68; RESP 20; O2SAT 97
[2019-12-05 15:00] VITALS: BP 128/82; PULSE 62; RESP 18; O2SAT 96
[2019-12-05 16:03] VITALS: BP 136/84; PULSE 60; RESP 18; O2SAT 97
[2019-12-05 16:13] LABS: Troponin I < 0.012 ng/mL (0.01-0.034)
== END 2019-12-05 16:37 | disposition home or self-care (01) ==
PROVIDERS: Emergency Provider Emergency Medicine; PCP Internal Medicine
DX: R07.89 Other chest pain (principal); R07.9 Chest pain, unspecified; M79.602 Pain in left arm; I10 Essential (primary) hypertension
CPT/HCPCS: 36415; 71045; 80053; 82550; 83690; 83735; 84484; 85025; 85610; 85730; 93005; 93010; 99284; 99285

== ENCOUNTER → 2020-01-23 17:13 | Outpatient (ROUT) | payer MEDICARE, BC, SELFPAY | PROVIDERS: PCP Internal Medicine; Visit Provider Internal Medicine | DX: L02.91 Cutaneous abscess, unspecified (principal) | CPT/HCPCS: 87070; 87075; 87077; 87147; 87186; 87205 ==

== ENCOUNTER → 2021-01-05 13:07 | Outpatient (CLI) | payer MEDICARE, BC, SELFPAY ==
--- NOTE | 2021-01-05 | DI.CT.S_ITS ---
PROCEDURE: CT CHEST WO CON INDICATIONS: Solitary pulmonary nodule TECHNIQUE: Noncontrast 2.0-2.5 mm thick sections acquired from the pulmonary apices to the posterior costophrenic angles. 7 mm thick axial MIP and 5 mm coronal and sagittal reformats were then acquired. A low radiation dose technique was utilized. COMPARISON: CT, THORAX WITHOUT CONTRAST, 12/11/2015, 9:50. [facility], CR, XR CHEST 2V, 02/06/2019, 12:17. [facility], CR, XR CHEST 1V, 12/05/2019, 13:18. FINDINGS: Image quality: Diagnostic, given the low radiation dose technique. Lungs and pleura: Right lower lobe mean diameter 6 mm, (2/251), unchanged since 2015. Area of round atelectasis at the left lung base measuring at 3.3 x 3.2 cm, (2/232), unchanged since 2014. Left lower lobe volume loss. No acute airspace opacity. Mild atelectasis at the right lung base. Airways are clear. Minimal pleural thickening at the right lung base. No pleural effusion. No pneumothorax. Mediastinum: Heart size is normal. No pericardial effusion. No mediastinal adenopathy by size criteria. Thoracic aorta and central pulmonary arteries are normal in size. Esophagus is normal in caliber. No hiatal hernia. Bones and chest wall: No suspicious bony lesions. No vertebral body compression fractures. No axillary or supraclavicular adenopathy by size criteria. Thyroid gland is unremarkable. Abdomen: Left adrenal benign adenoma measuring at 2.1 cm, (3/63). Visualized upper abdomen solid organs and bowel loops appear normal in the absence of contrast. IMPRESSION: 1. No new or enlarging pulmonary nodules. Small right lower lobe pulmonary nodule is unchanged since 2016 suggesting a benign etiology. 2. Stable area of round atelectasis at the left lung base. 3. No pleural effusion. 4. No adenopathy. Dictated by: Beau Bansal M.D. on 01/05/2021 at 14:11 Approved by: Beau Bansal M.D. on 01/05/2021 at 14:24
== END ==
PROVIDERS: PCP Internal Medicine; Referring Provider Internal Medicine; Visit Provider Internal Medicine
DX: R91.1 Solitary pulmonary nodule (principal); J98.11 Atelectasis
CPT/HCPCS: 71250

== ENCOUNTER 2022-06-09 11:08 | Emergency (ER) | payer MEDICARE, BC, SELFPAY ==
[2022-06-09 11:15] VITALS: BP 198/98; PULSE 74; RESP 16; TEMP 36.1; O2SAT 97; BMI 27.1
--- NOTE | 2022-06-09 11:18 | DI.RAD.S_ITS ---
PROCEDURE: XR RIBS RT MIN 3V W CXR 1V INDICATIONS: fall with shoulder and rib pain TECHNIQUE: 2 views of the right ribs were acquired, along with a single view chest. COMPARISON: [facility], CR, XR SHOULDER RT MIN 2V, 06/09/2022, 11:36. FINDINGS: Surgical changes and devices: Left upper thoracic clips are seen. Bones and chest wall: A marker is placed upon the area of clinical concern. Within this region, no displaced rib fracture or other significant rib abnormality can be seen. No rib fractures are seen elsewhere. No suspicious bony lesions. Age-appropriate bony degenerative changes are seen. Overlying soft tissues appear unremarkable. Lungs and pleura: No pleural effusions or pneumothorax. Lungs appear clear. Mediastinum: The cardiac contours are within normal limits. The aorta demonstrates calcification and tortuosity. IMPRESSION: No displaced rib fracture or pneumothorax can be seen. Dictated by: Wu Ansari M.D. on 06/09/2022 at 10:53 Approved by: Wu Ansari M.D. on 06/09/2022 at 10:55
--- NOTE | 2022-06-09 11:18 | DI.RAD.S_ITS ---
PROCEDURE: XR SHOULDER RT MIN 2V INDICATIONS: fall with shoulder and rib pain TECHNIQUE: 3 views of the shoulder were acquired. COMPARISON: None. FINDINGS: Bones: No fractures or dislocations. No suspicious bony lesions. Visualized ribs appear intact. Soft tissues: No suspicious soft tissue calcifications. IMPRESSION: Right shoulder without acute fracture or dislocation. If there is persistent clinical concern for occult fracture given adequate mechanism of injury, consider repeat imaging in 10-14 days. Dictated by: Suraj Travis M.D. on 06/09/2022 at 11:44 Approved by: Suraj Travis M.D. on 06/09/2022 at 11:45
--- NOTE | 2022-06-09 14:50 | ED_ITS ---
HPI - Fall <Monica Arredondo PA-C - Last Filed: 06/09/22 19:38> General Chief Complaint: Fall Stated Complaint: Right side rib pain after fall, SOB Time Seen by Provider: 06/09/22 14:27 Source: patient Mode of arrival: Ambulatory History of Present Illness HPI Narrative: 71-year-old male with a history of hypertension presents with concern for right- sided rib pain and some shoulder discomfort since he had a fall on Tuesday at home 4 days ago. He was outside walking towards his exterior steps and his shoe caught and he went down with a twisting ankle and landed on his right side. He felt okay initially denies loss of consciousness, hitting his head, neck pain or other injury but over the next few hours he started realized he had significant pain on his right side ribs up high and also discomfort with moving his shoulder. 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 He states ?normally I tough it out but I had to come in?. He has been taking ibuprofen 600 mg 3 times a day with only about 1-1/2 hours of relief each time. He has not yet tried Tylenol. He also notes that he has not been taking his regular medications including his BP medication for a little while as he ran out and needs to set up another appointment with his PCP. He is planning to do this soon, does state he checks his blood pressures at home and they vary throughout the day; usually in the morning he says it is around 130 for the top number. He is agreeable to getting a bridge prescription of his blood pressure medication today until he can get in to be seen. Denies any other complaints or concerns including shortness of breath, cough, weakness, fatigue, numbness or tingling or other symptoms. Related Data Home Medications Medication Instructions Recorded Confirmed atorvastatin 20 mg tablet (Lipitor) 20 mg PO BEDTIME ##0 07/12/12 02/06/19 lisinopril 10 mg tablet 10 mg PO QPM ##0 07/12/12 02/06/19 allopurinol 100 mg tablet 100 mg PO QPM 04/14/18 02/06/19 esomeprazole magnesium 40 mg 40 mg PO QPM 02/06/19 02/06/19 capsule,delayed release hydrochlorothiazide 12.5 mg capsule 12.5 mg PO QPM 02/06/19 02/06/19 Previous Rx's Medication Instructions Recorded albuterol sulfate 90 mcg/actuation 2 puff inhalation Q4-6H PRN 02/06/19 aerosol inhaler shortness of breath or wheezing #8 grams prednisone 50 mg tablet 50 mg PO DAILY #5 tabs 02/06/19 aspirin 81 mg tablet,delayed 81 mg PO DAILY #1 tab 12/05/19 release ibuprofen 600 mg tablet 600 mg PO Q6H PRN atypical chest 12/05/19 pain #20 tabs baclofen 10 mg tablet 10 mg PO TID #30 tabs 06/09/22 baclofen 10 mg tablet 10 mg PO TID #30 tabs 06/09/22 hydrocodone 10 mg-acetaminophen 1 tab PO Q8H PRN pain #14 tabs 06/09/22 300 mg tablet (Vicodin HP) hydrocodone 10 mg-acetaminophen 1 tab PO Q8H PRN pain #14 tabs 06/09/22 300 mg tablet (Vicodin HP) lidocaine 5 % topical patch 1 patch topical DAILY #15 ea 06/09/22 lidocaine 5 % topical patch 1 patch topical DAILY #15 ea 06/09/22 lisinopril 10 mg tablet 10 mg PO DAILY #90 tabs 06/09/22 lisinopril 10 mg tablet 10 mg PO DAILY HTN #90 tabs 06/09/22 Allergies Allergy/AdvReac Type Severity Reaction Status Date / Time No Known Drug Allergies Allergy Verified 06/09/22 11:15 Review of Systems <Monica Arredondo PA-C - Last Filed: 06/09/22 19:38> Review of Systems Narrative: See HPI Patient History <Monica Arredondo PA-C - Last Filed: 06/09/22 19:38> Medical History (Updated 06/09/22 @ 19:37 by Monica Arredondo PA-C) Elective surgery Elevated cholesterol GERD (gastroesophageal reflux disease) Gout H/O ETOH abuse HTN (hypertension) Surgical History History of shoulder surgery Hx of prostatectomy Hx of sinus surgery S/P excision of vocal cord nodule Social History household members: significant other Smoking Status: Current every day smoker alcohol intake: current additional social history: The patient admits to smoking cigarettes but does not drink alcohol or use any drugs. Smoking Status: Current every day smoker alcohol intake frequency: 3 or more drinks per day Substance Use Type: marijuana Exam <Monica Arredondo PA-C - Last Filed: 06/09/22 19:38> Narrative Exam Narrative: GENERAL: 71 year old patient appears stated age. Well-developed patient, in mild distress. HEAD: Atraumatic. Normocephalic. EYES: Pupils equal round and reactive. Extraocular motions intact. No scleral icterus. No injection or drainage. ENT: Nose without bleeding, purulent drainage. Throat without erythema, tonsillar hypertrophy or exudate. Airway patent. NECK: Trachea midline. Non tender. No C-spine tenderness, step-offs, deformity. CARDIOVASCULAR: Regular rate and rhythm without murmurs, gallops, or rubs. RESPIRATORY: Clear to auscultation. Breath sounds equal bilaterally. No wheezes, rales, or rhonchi. GASTROINTESTINAL: Abdomen soft, non-tender, nondistended. EXTREMITIES: There is slight reduced range of motion and strength 2nd to pain in his right side lateral ribs with movement of his right shoulder. Normal ROM/strength of forearm, wrist. Movement is grossly intact however he has increased pain in the area of his right ribs when he moves his right shoulder. No edema or joint tenderness. BACK: There is tenderness with palpation laterally and anteriorly to the nipple line in the area of the 4th to 6th ribs. There is slight bruising on the lateral posterior back lateral to the scapula. There is also bruising on the posterior upper arm. Otherwise Nontender without deformity or crepitance. No CVA tenderness. NEURO: AOx3. No numbness or tingling SKIN: No rash or erythema of visible areas Initial Vital Signs Initial Vital Signs: Vital Signs Temperature 96.9 F L 06/09/22 11:15 Pulse Rate 74 06/09/22 11:15 Respiratory Rate 16 06/09/22 11:15 Blood Pressure 198/98 H 06/09/22 11:15 Pulse Oximetry 97 06/09/22 11:15 Oxygen Delivery Method 06/09/22 11:15 <Elle Estevez DO - Last Filed: 06/13/22 13:41> Initial Vital Signs Initial Vital Signs: Vital Signs Temperature 96.9 F L 06/09/22 11:15 Pulse Rate 74 06/09/22 11:15 Respiratory Rate 16 06/09/22 11:15 Blood Pressure 198/98 H 06/09/22 11:15 Pulse Oximetry 97 06/09/22 11:15 Oxygen Delivery Method 06/09/22 11:15 Course <Monica Arredondo PA-C - Last Filed: 06/09/22 19:38> Orders Ordered: ED Orders 06/09/22 11:18 XR ribs RT min 3V w CXR1V Stat XR shoulder RT min 2V Stat Vital Signs Vital signs: Vital Signs - 8 hr 06/09/22 15:22 Pulse Rate 67 Respiratory Rate 18 Blood Pressure 157/89 H Pulse Oximetry 97 Oxygen Delivery Method Room Air <Elle Estevez DO - Last Filed: 06/13/22 13:41> Orders Ordered: ED Orders 06/09/22 11:18 XR ribs RT min 3V w CXR1V Stat XR shoulder RT min 2V Stat Vital Signs Vital signs: Vital Signs - 8 hr 06/09/22 15:22 Pulse Rate 67 Respiratory Rate 18 Blood Pressure 157/89 H Pulse Oximetry 97 Oxygen Delivery Method Room Air MDM - Fall <Monica Arredondo PA-C - Last Filed: 06/09/22 19:38> Medical Records Medical records narrative: Well-appearing 71-year-old male presents with concern for right-sided rib pain after having a fall 4 days ago at home. Without loss of consciousness, neck pain, or other concerning symptoms. X-rays today of shoulder and ribs are unremarkable for fracture. Exam is also not suggestive of fracture, suspect a contusion, muscle spasms and intercostal muscle strain. Low suspicion for intra-abdominal pathology, cardiac, or other etiology that would warrant additional imaging or labs today. Prescriptions for the patient's regular antihypertensive medication which she has been out of recently provided today as well as muscle relaxer, lidocaine patches and short course of stronger pain medicine. Follow-up plan discussed, return precautions provided, all questions answered. Imaging Data Extremity x-ray #1: My Impression: [address] [address] XRay Report Signed Patient: Clay To MR#: [id number] : 1950 Acct:[id number] Age/Sex: 71 / M Date of Service: 06/09/22 Loc: ED Accession Number: [id number] ?? Procedure: XR shoulder RT min 2V Ordering Provider: Elle Estevez D.O. PROCEDURE:? XR SHOULDER RT MIN 2V ? INDICATIONS:? fall with shoulder and rib pain ? TECHNIQUE:? 3 views of the shoulder were acquired.? ? COMPARISON:? None. ? FINDINGS:? ? Bones:? No fractures or dislocations.? No suspicious bony lesions.? Visualized ribs appear intact.? ? Soft tissues:? No suspicious soft tissue calcifications.? ? IMPRESSION:? Right shoulder without acute fracture or dislocation. ? If there is persistent clinical concern for occult fracture given adequate mechanism of injury, consider repeat imaging in 10-14 days. ? ? ? Dictated by: Suraj Travis M.D. on 06/09/2022 at 11:44 ? ? Approved by: Suraj Travis M.D. on 06/09/2022 at 11:45?? Chest x-ray: My Impression: [place] [address] XRay Report Signed Patient: Clay To MR#: [id number] : 1950 Acct:[id number] Age/Sex: 71 / M Date of Service: 06/09/22 Loc: ED Accession Number: [id number] ?? Procedure: XR ribs RT min 3V w CXR1V Ordering Provider: Elle Estevez D.O. PROCEDURE:? XR RIBS RT MIN 3V W CXR 1V ? INDICATIONS:? fall with shoulder and rib pain ? TECHNIQUE:? 2 views of the right ribs were acquired, along with a single view chest.? ? COMPARISON:? [facility], CR, XR SHOULDER RT MIN 2V, 06/09/2022, 11:36. ? FINDINGS:? ? Surgical changes and devices:? Left upper thoracic clips are seen. ? Bones and chest wall:? A marker is placed upon the area of clinical concern.? Within this region, no displaced rib fracture or other significant rib abnormality can be seen.? No rib fractures are seen elsewhere.? No suspicious bony lesions.? Age-appropriate bony degenerative changes are seen.? Overlying soft tissues appear unremarkable.? ? Lungs and pleura:? No pleural effusions or pneumothorax.? Lungs appear clear.? ? Mediastinum:? The cardiac contours are within normal limits. The aorta demonstrates calcification and tortuosity. ? ? ? IMPRESSION:? No displaced rib fracture or pneumothorax can be seen. ? ? Dictated by: Wu Ansari M.D. on 06/09/2022 at 10:53 ? ? Approved by: Wu Ansari M.D. on 06/09/2022 at 10:55?? Discharge Plan Departure Patient Disposition: Home Clinical Impression: Contusion of rib on right side, Muscle spasm, Intercostal muscle strain, Chronic hypertension Instructions: How to Prevent Falls Activity Restrictions/Additional Instructions: Thank you for letting us be part of your care today in the emergency department. Your x-rays of her shoulder and ribs looked okay today. Occasionally there is a subtle fracture that is not visualized on initial x-rays however I think this is unlikely this is been 4 days since her original injury. I prescribed lidocaine patches for you thick me is prepped 12 hours day, I recommend trying Tylenol, if needed you can try the stronger pain medicine. I have also prescribed lisinopril for you but strongly encourage you to make an appointment with your regular PCP to follow-up on your other medications and update her prescriptions. There is also a prescription for a muscle relaxer. Please try this cautiously in combination with the pain medicine and make sure your not driving or operating any heavy equipment for using. There is no evidence of an emergent or life threatening illness at this time, but follow up with your doctor in 1-2 days is recommended nonetheless to continue to rule out serious underlying causes of your symptoms. Please call the office for an appointment. Please return to the Emergency Department for any worsening or persistent symptoms. Please take medications as directed. If you do develop shortness of breath, lightheadedness, dizziness new pain or other symptoms of concern do not hesitate to be re-evaluated medically. Prescriptions: New lisinopril 10 mg tablet 10 mg PO DAILY Qty: 90 0RF lidocaine 5 % adhesive patch,medicated 1 patch topical DAILY Qty: 15 1RF Rx Instructions: leave on most painful area for up to 12 hrs hydrocodone-acetaminophen [Vicodin HP] 10-300 mg tablet 1 tab PO Q8H MDD 3 tablets PRN (Reason: pain) Qty: 14 0RF baclofen 10 mg tablet 10 mg PO TID Qty: 30 0RF baclofen 10 mg tablet 10 mg PO TID Qty: 30 0RF lidocaine 5 % adhesive patch,medicated 1 patch topical DAILY Qty: 15 0RF Rx Instructions: leave on most painful area for up to 12 hrs hydrocodone-acetaminophen [Vicodin HP] 10-300 mg tablet 1 tab PO Q8H PRN (Reason: pain) Qty: 14 0RF lisinopril 10 mg tablet 10 mg PO DAILY Qty: 90 0RF No Action atorvastatin [Lipitor] 20 MG tablet 20 mg PO BEDTIME Qty: 0 lisinopril 10 MG tablet 10 mg PO QPM Qty: 0 esomeprazole magnesium 40 mg capsule,delayed release(DR/EC) 40 mg PO QPM hydrochlorothiazide 12.5 mg capsule 12.5 mg PO QPM prednisone 50 mg tablet 50 mg PO DAILY Qty: 5 0RF albuterol sulfate 90 mcg/actuation HFA aerosol inhaler 2 puff INHALATION Q4-6H PRN (Reason: shortness of breath or wheezing) Qty: 8 0RF aspirin 81 mg tablet,delayed release (DR/EC) 81 mg PO DAILY Qty: 1 0RF ibuprofen 600 mg tablet 600 mg PO Q6H PRN (Reason: atypical chest pain) Qty: 20 0RF allopurinol 100 mg Tablet 100 mg PO QPM Referrals: Cristina Vanegas MD [Primary Care Provider] - Visit Report Forms: Patient Portal/API <Elle Estevez DO - Last Filed: 06/13/22 13:41> Cosign ED Attending Cosaleshiaature Attestation: I was immediately available in the department for consultation. Documentation has been reviewed. I agree with assessment and plan.
--- NOTE | 2022-06-09 15:01 | PC.NURSE ---
Lung sounds clear and equal throughout all posterior zhu. Pain increases with deep breathing and pt states pain is similar to when he had a broken rib before.
[2022-06-09 15:22] VITALS: BP 157/89; PULSE 67; RESP 18; O2SAT 97
== END 2022-06-09 15:37 | disposition home or self-care (01) ==
PROVIDERS: Emergency Provider Student in an Organized Health Care Education/Training Program; PCP Internal Medicine
DX: S20.214A Contusion of middle front wall of thorax, initial encounter (principal); M62.838 Other muscle spasm; I10 Essential (primary) hypertension; S29.011A Strain of muscle and tendon of front wall of thorax, initial encounter; M25.511 Pain in right shoulder; W19.XXXA Unspecified fall, initial encounter
CPT/HCPCS: 71101; 73030; 99283

== ENCOUNTER → 2024-09-19 15:24 | Outpatient (CLI) | payer MEDICARE, SELFPAY ==
[2024-09-19 16:45] LABS: Prostate Specific Antigen < 0.064 ng/mL (0.10-4.00)
== END ==
PROVIDERS: PCP Internal Medicine; Referring Provider Radiology Radiation Oncology; Visit Provider Radiology Radiation Oncology
DX: C61 Malignant neoplasm of prostate (principal)
CPT/HCPCS: 36415; 84153

== ENCOUNTER → 2024-10-17 14:14 | Outpatient (CLI) | payer MEDICARE, SELFPAY ==
[2024-10-17 16:03] LABS: Prostate Specific Antigen < 0.064 ng/mL (0.10-4.00)
== END ==
PROVIDERS: PCP Internal Medicine; Referring Provider Radiology Radiation Oncology; Visit Provider Radiology Radiation Oncology
DX: C61 Malignant neoplasm of prostate (principal)
CPT/HCPCS: 36415; 84153

== ENCOUNTER → 2024-10-29 15:55 | Outpatient (CLI) | payer MEDICARE, SELFPAY ==
--- NOTE | 2024-10-29 16:09 | DI.RAD.S_ITS ---
PROCEDURE: XR SHOULDER LT MIN 2V INDICATIONS: RIB/BACK PAIN TECHNIQUE: 3 views of the shoulder were acquired. COMPARISON: [facility], CR, XR SHOULDER RT MIN 2V, 06/09/2022, 11:36. FINDINGS: Bones: No fractures or dislocations. No suspicious bony lesions. Visualized ribs appear intact. Soft tissues: No suspicious soft tissue calcifications. Left axillary surgical clips. IMPRESSION: No acute fracture or dislocation of the left shoulder. Dictated by: Freddy Clemons M.D. on 10/29/2024 at 21:01 Approved by: Freddy Clemons M.D. on 10/29/2024 at 21:02
--- NOTE | 2024-10-29 16:09 | DI.RAD.S_ITS ---
PROCEDURE: XR LUMBAR SPINE 2-3V INDICATIONS: RIB/BACK PAIN TECHNIQUE: 3 views of the lumbar spine were acquired. COMPARISON: None. FINDINGS: Five non rib-bearing lumbar vertebrae are present. The vertebral body heights are preserved. Diffuse osseous demineralization. Straightening of the lumbar lordosis. Mild intervertebral disc height loss at L4-L5 and L5-S1. Mild multilevel hypertrophy of the spinous processes. Mild-moderate facet arthropathy, most conspicuous at L4-L5 and L5-S1. Surgical clips at the level of the pelvis. IMPRESSION: Mild multilevel lumbar osteoarthrosis, most conspicuous at L4-L5 and L5-S1. Dictated by: Freddy Clemons M.D. on 10/29/2024 at 21:00 Approved by: Freddy Clemons M.D. on 10/29/2024 at 21:01
--- NOTE | 2024-10-29 16:09 | DI.RAD.S_ITS ---
PROCEDURE: XR THORACIC SPINE 2V INDICATIONS: RIB/BACK PAIN TECHNIQUE: 3 views of the thoracic spine were acquired. COMPARISON: None. FINDINGS: Mild dextrocurvature of the upper thoracic spine with the apex at T4. Mild levocurvature of the lower thoracic spine with the apex at T9. Otherwise, the vertebral body heights are preserved. No acute, displaced rib fracture in the field of view. IMPRESSION: Mild thoracic levo curvature and dextrocurvature without an acute vertebral body compression fracture. Dictated by: Freddy Clemons M.D. on 10/29/2024 at 21:04 Approved by: Freddy Clemons M.D. on 10/29/2024 at 21:05
== END ==
PROVIDERS: PCP Internal Medicine; Referring Provider Internal Medicine Hematology & Oncology; Visit Provider Internal Medicine Hematology & Oncology
DX: M47.816 Spondylosis without myelopathy or radiculopathy, lumbar region (principal); M47.817 Spondylosis without myelopathy or radiculopathy, lumbosacral region; M25.512 Pain in left shoulder; M41.9 Scoliosis, unspecified; Z91.81 History of falling
CPT/HCPCS: 72070; 72100; 73030

== ENCOUNTER → 2025-01-09 15:17 | Outpatient (CLI) | payer MEDICARE, SELFPAY ==
[2025-01-09 16:59] LABS: Prostate Specific Antigen < 0.064 ng/mL (0.10-4.00)
== END ==
PROVIDERS: PCP Internal Medicine; Referring Provider Internal Medicine Hematology & Oncology; Visit Provider Internal Medicine Hematology & Oncology
DX: C61 Malignant neoplasm of prostate (principal)
CPT/HCPCS: 36415; 84153

== ENCOUNTER 2025-03-22 20:18 | Observation (INO) | payer MEDICARE, SELFPAY ==
[2025-03-22] VITALS (17 sets, daily range): BP systolic 125–160; BP diastolic 71–90; PULSE 55–71; RESP 13–40; TEMP 36.4; O2SAT 97–100; BMI 27.8
--- NOTE | 2025-03-22 20:29 | DI.CT.S_ITS ---
PROCEDURE: CT HEAD/BRAIN WO CON INDICATIONS: fall TECHNIQUE: Noncontrast 4.5 mm thick angled axial sections acquired from the foramen magnum to the vertex, with coronal and sagittal reformats. For radiation dose reduction, the following was used: automated exposure control, adjustment of mA and/or kV according to patient size. COMPARISON: None. FINDINGS: Image quality: Diagnostic. CSF spaces: Basal cisterns are patent. No extra-axial fluid collections. The ventricles are symmetric in size and shape. Brain: No acute intracranial hemorrhage or mass effect. There is cerebral volume loss, with resultant ventricular and sulcal prominence. There are periventricular and deep white matter chronic small vessel ischemic changes. There is intracranial internal carotid artery atherosclerosis. Skull and face: Small left parietal scalp hematoma. Calvarium and visualized facial bones appear intact, without suspicious lesions. Sinuses: Visualized sinuses and mastoids are clear. IMPRESSION: Small left parietal scalp hematoma. No skull fracture. No acute intracranial hemorrhage. Approved by: Dg Frye M.D. on 03/22/2025 at 21:46
--- NOTE | 2025-03-22 20:29 | DI.RAD.S_ITS ---
PROCEDURE: XR CHEST 1V INDICATIONS: Chest Pain TECHNIQUE: One view of the chest was acquired. COMPARISON: [facility], CR, XR CHEST 1V, 12/05/2019, 13:18. [facility], CR, XR CHEST 2V, 02/06/2019, 12:17. FINDINGS: Surgical changes and devices: Left axillary surgical clips. Lungs and pleura: Diffuse reticulated opacification without a focal consolidation, likely representing chronic changes. No pleural effusions or pneumothorax. Mediastinum: Mediastinal contours appear normal. Heart size is normal. Bones and chest wall: No suspicious bony lesions. Overlying soft tissues appear unremarkable. IMPRESSION: No acute cardiothoracic process. Dictated by: Freddy Clemons M.D. on 03/22/2025 at 22:22 Approved by: Freddy Clemons M.D. on 03/22/2025 at 22:23
--- NOTE | 2025-03-22 20:29 | DI.CT.S_ITS ---
PROCEDURE: CT CERVICAL SPINE WO CON INDICATIONS: fall TECHNIQUE: Noncontrast 3 mm thick sections acquired from the skull base to the T4 level. Sagittal and coronal reformats were then constructed. For radiation dose reduction, the following was used: automated exposure control, adjustment of mA and/or kV according to patient size. COMPARISON: None. FINDINGS: Image quality: Excellent. Bones: No acute fractures or dislocations. Scoliotic curvature of the upper thoracic spine is partially included. Visualized superior ribs are intact. Multilevel disc space narrowing and degenerative endplate changes. Multilevel uncovertebral joint and facet hypertrophy. Soft tissues: Prevertebral soft tissues are normal in thickness. No paravertebral hematomas. No apical pneumothoraces. IMPRESSION: No acute displaced fracture or traumatic subluxation. Approved by: Dg Frye M.D. on 03/22/2025 at 21:52
--- NOTE | 2025-03-22 20:29 | EKG_ITS ---
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
--- NOTE | 2025-03-22 20:29 | DI.RAD.S_ITS ---
PROCEDURE: XR ELBOW LT MIN 3V INDICATIONS: fall TECHNIQUE: 3 views of the elbow were acquired. COMPARISON: None. FINDINGS: No acute fracture or dislocation. The joint spaces are preserved. No significant joint effusion. IMPRESSION: No acute fracture or dislocation of the left elbow. Dictated by: Freddy Clemons M.D. on 03/22/2025 at 22:23 Approved by: Freddy Clemons M.D. on 03/22/2025 at 22:24
--- NOTE | 2025-03-22 20:29 | DI.RAD.S_ITS ---
PROCEDURE: XR HAND LT MIN 3V INDICATIONS: fall TECHNIQUE: 3 views of the hand(s) acquired. COMPARISON: [facility], CR, XR ELBOW LT MIN 3V, 03/22/2025, 20:41. FINDINGS: Diffuse osseous demineralization. No acute fracture or dislocation. The scapholunate interval is preserved. No carpal bone sclerosis. Mild 1st CMC osteoarthritis. IMPRESSION: No acute fracture or dislocation of the left hand. Dictated by: Freddy Clemons M.D. on 03/22/2025 at 22:25 Approved by: Freddy Clemons M.D. on 03/22/2025 at 22:26
--- NOTE | 2025-03-22 20:29 | DI.RAD.S_ITS ---
PROCEDURE: XR WRIST LT MIN 3V INDICATIONS: fall TECHNIQUE: 4 views of the wrist were acquired. COMPARISON: None. FINDINGS: Acute, mildly impacted fracture of the distal ulnar diaphysis with mild dorsal dislocation of the dominant distal fracture fragment. No other acute fracture or dislocation. IMPRESSION: Acute, mildly impacted and displaced fracture of the distal ulnar diaphysis. Dictated by: Freddy Clemons M.D. on 03/22/2025 at 22:27 Approved by: Freddy Clemons M.D. on 03/22/2025 at 22:29
[2025-03-22] MEDS: TET,DIPH,PERTUSS(ACELL),VAC/PF 0.5 ML SYRINGE IM (21:07)
--- NOTE | 2025-03-22 21:10 | ED.GENADULT ---
HPI - General Adult General Chief complaint: Trauma Stated complaint: glf-hit head Time Seen by Provider: 03/22/25 20:25 Mode of arrival: EMS History of Present Illness HPI narrative: 74-year-old male admits to recent alcohol use, 3 drinks earlier today, was walking upstairs, fell from 2nd stair backwards, struck left posterior part of his head, no loss of consciousness, no seizure shaking activity. Bleeding from the left scalp wound. Also has pain and some bleeding to laceration left elbow, dorsal left wrist area. Related Data Home Medications Medication Instructions Recorded Confirmed atorvastatin 20 mg tablet (Lipitor) 20 mg PO BEDTIME ##0 07/12/12 12/22/23 allopurinol 100 mg tablet 100 mg PO QPM 04/14/18 12/22/23 lisinopril 10 mg tablet 20 mg PO DAILY HTN 11/02/23 12/22/23 Previous Rx's Medication Instructions Recorded ibuprofen 600 mg tablet 600 mg PO Q6H PRN atypical chest 12/05/19 pain #20 tabs bicalutamide 50 mg tablet (Casodex) 50 mg PO DAILY #30 tabs 12/22/23 Allergies Allergy/AdvReac Type Severity Reaction Status Date / Time No Known Drug Allergies Allergy Verified 03/22/25 20:32 Patient History Medical History (Updated 03/23/25 @ 03:02 by Domenic Altamirano MD) Prostate cancer metastatic to intrapelvic lymph node History of malignant neoplasm of prostate Biochemically recurrent malignant neoplasm of prostate H/O ETOH abuse Elective surgery Gout GERD (gastroesophageal reflux disease) Elevated cholesterol HTN (hypertension) Surgical History Hx of sinus surgery History of shoulder surgery S/P excision of vocal cord nodule Hx of prostatectomy Family History Brother Cancer Gout Mother Stroke Social History marital status: number of children: 5 household members: significant other Previous occupational history: [employer] retired [employer] Smoking Status: Unknown if ever smoked Tobacco: How many years used: 40 alcohol intake: current caffeine: Yes additional social history: The patient admits to smoking cigarettes but does not drink alcohol or use any drugs. Smoking Status: Unknown if ever smoked alcohol intake frequency: 3 or more drinks per day Exam Narrative Exam Narrative: GENERAL: Well-developed patient, in mild distress. HEAD: Atraumatic. Normocephalic. Bleeding to the left parietal area. EYES: Pupils equal round and reactive. Extraocular motions intact. No scleral icterus. No injection or drainage. ENT: Nose without bleeding, purulent drainage. Throat without erythema, tonsillar hypertrophy or exudate. Airway patent. NECK: Trachea midline. C-collar in place. CARDIOVASCULAR: Regular rate and rhythm without murmurs, gallops, or rubs. RESPIRATORY: Clear to auscultation. Breath sounds equal bilaterally. No wheezes, rales, or rhonchi. GASTROINTESTINAL: Abdomen soft, non-tender, nondistended. EXTREMITIES: No edema or joint tenderness. Left elbow abrasion, dorsal left distal forearm linear avulsion laceration nonsuturable. BACK: Nontender without deformity or crepitance. No flank tenderness. NEURO: AOx3. Motor functions grossly nonfocal SKIN: No rash or erythema of visible areas Initial Vital Signs Initial Vital Signs: Vital Signs Pulse Rate 65 03/22/25 20:24 Blood Pressure 125/71 03/22/25 20:24 Pulse Oximetry 97 03/22/25 20:24 Course Orders Ordered: ED Orders 03/22/25 20:29 CT cervical spine wo con Stat CT head/brain wo con Stat XR chest 1V Stat XR elbow LT min 3V Stat XR hand LT min 3V Stat XR wrist LT min 3V Stat EKG-12 Lead Stat RT Consult Eval and Treat NOW 03/22/25 21:10 Complete Blood Count AUTO DIFF Stat Comprehensive Metabolic Panel Stat Ethanol (ETOH) Stat Lactate (Lactic Acid) Stat Lipase Stat Magnesium Stat NT-proBNP (BNP-Adult 18+) Stat PTT Partial Thromboplastin Samir Stat Prothrombin Time INR Stat Troponin & CK Cardiac Panel Stat 03/22/25 22:34 Lactate (Lactic Acid) Stat 03/22/25 23:01 CT abdomen pelvis w con Stat 03/23/25 03:45 Blood Culture Stat 03/23/25 03:55 Urinalysis and Microscopic Stat Discontinued Medications Bacitracin (Bacitracin Oint 0.9 Gm Pckt) 1 applic TOP NOW ONE Stop: 03/22/25 22:51 Last Admin: 03/22/25 22:56 Dose: 1 applic Documented By: SHMUEL Bacitracin (Bacitracin Oint 0.9 Gm Pckt) 3 applic TOP NOW ONE Stop: 03/23/25 04:14 Last Admin: 03/23/25 04:36 Dose: 1 applic Documented By: MELVINA Diphtheria/Tetanus/Acell Pertussis (Tet,Diph,Pertuss(Acell),Vac/Pf 0.5 Ml Syringe) 0.5 ml IM .ONCE ONE Stop: 03/22/25 20:32 Last Admin: 03/22/25 21:07 Dose: 0.5 ml Documented By: TUNDE Hydromorphone HCl (Hydromorphone 0.5 Mg Inj) 0.5 mg IV NOW ONE Stop: 03/23/25 02:42 Last Admin: 03/23/25 02:55 Dose: 0.5 mg Documented By: MELVINA Hydromorphone HCl (Hydromorphone 0.5 Mg Inj) 0.5 mg IV NOW ONE Stop: 03/23/25 04:28 Last Admin: 03/23/25 04:33 Dose: 0.5 mg Documented By: MELVINA Lactated Ringer's (Lactated Ringers) 1,000 mls @ 1,000 mls/hr IV BOLUS ONE Stop: 03/22/25 22:58 Last Infusion: 03/22/25 23:09 Dose: Infused Documented By: Admin: 03/22/25 22:02 Dose: 1,000 mls/hr Documented By: SHMUEL Sodium Chloride (Normal Saline 0.9%) 1,000 mls @ 1,000 mls/hr IV BOLUS ONE Stop: 03/23/25 03:10 Last Infusion: 03/23/25 03:37 Dose: Infused Documented By: Admin: 03/23/25 02:37 Dose: 1,000 mls/hr Documented By: MELVINA Ceftriaxone Sodium 1,000 mg/ (Sodium Chloride) 100 mls @ 200 mls/hr IV NOW ONE Stop: 03/23/25 02:12 Last Infusion: 03/23/25 04:20 Dose: Infused Documented By: Admin: 03/23/25 03:47 Dose: 200 mls/hr Documented By: MELVINA Lidocaine/Prilocaine (Lidocaine/Prilocaine 5 Gm) 5 gm TOP NOW ONE Stop: 03/22/25 22:09 Last Admin: 03/22/25 22:11 Dose: 5 gm Documented By: SHMUEL Potassium Chloride (Potassium Chloride 20 Meq/15 Ml Udc) 40 meq PO NOW ONE Stop: 03/22/25 22:47 Last Admin: 03/22/25 22:55 Dose: 40 meq Documented By: SHMUEL Vital Signs Vital signs: Vital Signs - 8 hr 03/22/25 21:30 03/22/25 21:30 03/22/25 21:45 Pulse Rate 58 L 59 L Respiratory Rate 20 31 H Blood Pressure 151/79 H Pulse Oximetry 100 100 03/22/25 21:45 03/22/25 22:00 03/22/25 22:00 Pulse Rate 55 L Respiratory Rate 19 Blood Pressure 141/81 H 146/80 H Pulse Oximetry 100 03/22/25 22:06 03/22/25 22:15 03/22/25 22:15 Pulse Rate 56 L 63 Respiratory Rate 14 28 H Blood Pressure 146/80 H 159/84 H Pulse Oximetry 99 99 03/22/25 22:29 03/22/25 22:30 03/22/25 22:31 Pulse Rate 57 L 66 Respiratory Rate 30 H 40 H Blood Pressure 160/90 H Pulse Oximetry 99 99 03/22/25 22:45 03/22/25 22:45 03/22/25 23:00 Pulse Rate 59 L 61 Respiratory Rate 18 30 H Blood Pressure 154/80 H Pulse Oximetry 99 98 03/22/25 23:00 03/22/25 23:15 03/22/25 23:15 Pulse Rate 61 Respiratory Rate 26 H Blood Pressure 149/76 H 149/76 H Pulse Oximetry 99 03/22/25 23:34 03/23/25 00:00 03/23/25 00:25 Pulse Rate 69 58 L 72 Respiratory Rate 21 21 Blood Pressure Pulse Oximetry 97 97 96 03/23/25 00:25 03/23/25 00:30 03/23/25 00:30 Pulse Rate 61 Respiratory Rate 17 Blood Pressure 133/67 163/77 H Pulse Oximetry 98 03/23/25 00:45 03/23/25 00:45 03/23/25 01:00 Pulse Rate 66 66 Respiratory Rate 17 16 Blood Pressure 144/71 H Pulse Oximetry 98 97 03/23/25 01:00 03/23/25 01:15 03/23/25 01:15 Pulse Rate 77 Respiratory Rate 27 H Blood Pressure 153/81 H 179/91 H Pulse Oximetry 97 03/23/25 01:30 03/23/25 01:30 03/23/25 01:45 Pulse Rate 67 73 Respiratory Rate Blood Pressure 140/80 Pulse Oximetry 98 98 03/23/25 01:45 03/23/25 02:00 03/23/25 02:00 Pulse Rate 68 Respiratory Rate 12 Blood Pressure 146/79 H 145/79 H Pulse Oximetry 98 03/23/25 02:15 03/23/25 02:15 03/23/25 02:30 Pulse Rate 67 66 Respiratory Rate 14 21 Blood Pressure 154/83 H Pulse Oximetry 97 97 03/23/25 02:30 03/23/25 02:45 03/23/25 02:45 Pulse Rate 66 Respiratory Rate 19 Blood Pressure 154/77 H 159/79 H Pulse Oximetry 98 03/23/25 03:00 03/23/25 03:00 03/23/25 03:15 Pulse Rate 70 58 L Respiratory Rate 18 22 Blood Pressure 151/77 H Pulse Oximetry 97 98 03/23/25 03:15 03/23/25 04:24 03/23/25 04:25 Pulse Rate 64 62 Respiratory Rate 23 Blood Pressure 160/86 H Pulse Oximetry 98 98 03/23/25 04:25 03/23/25 04:30 03/23/25 04:30 Pulse Rate 61 Respiratory Rate 17 Blood Pressure 194/89 H 189/92 H Pulse Oximetry 97 03/23/25 04:45 03/23/25 04:45 03/23/25 05:00 Pulse Rate 65 66 Respiratory Rate 10 L 16 Blood Pressure 155/83 H Pulse Oximetry 96 95 Medical Decision Making Lab Data 03/22/25 21:10 03/22/25 21:10 Labs: Lab Results 03/22/25 03/22/25 03/23/25 Range/Units 21:10 22:34 00:40 WBC 5.7 (4.5-11.0) X10^3/uL RBC 3.86 L (4.5-5.9) X10^6/uL Hgb 13.3 L (13.5-17.5) g/dL Hct 38.9 L (41-53) % MCV 100.9 H (80-100) fL MCH 34.3 H (26-34) PG MCHC 34.0 (30-36) % RDW 13.7 (11.6-14.8) % Plt Count 220 (150-400) X10^3/uL Neut % (Auto) 71.5 (50-75) % Lymph % (Auto) 20.7 L (25-40) % [place] % (Auto) 6.8 (3-14) % Eos % (Auto) 0.6 L (2-4) % Baso % (Auto) 0.4 (0-2) % Neut # (Auto) 4000 (1126-8392) /uL Lymph # (Auto) 1200 (3424-0907) /uL [place] # (Auto) 400 (0-900) /uL Eos # (Auto) 0 (0-450) /uL Baso # (Auto) 0 (0-100) /uL PT 11.4 (9.4-12.5) SECONDS INR 1.0 (0.9-1.3) APTT 26 (25.1-36.5) SECONDS Sodium 141 (137-145) mmol/L Potassium 3.1 L (3.4-5.1) mmol/L Chloride 112 H (98-107) mmol/L Carbon Dioxide 19 L (22-32) mmol/L BUN 11 (9-20) mg/dL Creatinine 0.73 (0.66-1.25) mg/dL Estimated GFR > 60 (>60) mL/min BUN/Creatinine Ratio 15.1 (6-22) Glucose 112 H (70-99) mg/dL Lactate 4.4 H* 4.7 H* 4.4 H* (0.7-2.1) mmol/L Calcium 9.5 (8.4-10.2) mg/dL Magnesium 2.1 (1.6-2.3) mg/dL Total Bilirubin 0.5 (0.2-1.3) mg/dL AST 26 (17-59) IU/L ALT 19 (<50) IU/L Alkaline Phosphatase 67 (38-126) U/L Total Creatine Kinase 33 L (55-170) U/L Troponin I < 0.012 (0.01-0.034) ng/mL NT-Pro-B Natriuret Pep 419 (<450) pg/mL Total Protein 6.4 (6.3-8.2) g/dL Albumin 3.9 (3.5-5.0) g/dL Globulin 2.5 (1.7-4.1) g/dL Albumin/Globulin Ratio 1.6 (1.0-2.8) Lipase 402 H (23-300) U/L Urine Color Urine Appearance Urine pH (4.5-8.0) Ur Specific [place] (1.000-1.035) Urine Protein (Negative) Urine Glucose (UA) (Negative) g/dL Urine Ketones (NEGATIVE) Urine Occult Blood (Negative) Urine Nitrate (Negative) Urine Bilirubin (NEGATIVE) Urine Urobilinogen (0.2) E.U./dL Ur Leukocyte Esterase (NEGATIVE) Urine RBC (0-5/HPF) Urine WBC (0-5/HPF) Ur Squamous Epith Cells (0-5/HPF) Calcium Oxalate Crystal Urine Bacteria (None) Hyaline Casts (None) Ur Culture Indicated? Vol Urine Centrifuged Ethyl Alcohol 186 H ( - 10) mg/dL 03/23/25 Range/Units 03:55 WBC (4.5-11.0) X10^3/uL RBC (4.5-5.9) X10^6/uL Hgb (13.5-17.5) g/dL Hct (41-53) % MCV (80-100) fL MCH (26-34) PG MCHC (30-36) % RDW (11.6-14.8) % Plt Count (150-400) X10^3/uL Neut % (Auto) (50-75) % Lymph % (Auto) (25-40) % [place] % (Auto) (3-14) % Eos % (Auto) (2-4) % Baso % (Auto) (0-2) % Neut # (Auto) (9711-8502) /uL Lymph # (Auto) (2329-6826) /uL [place] # (Auto) (0-900) /uL Eos # (Auto) (0-450) /uL Baso # (Auto) (0-100) /uL PT (9.4-12.5) SECONDS INR (0.9-1.3) APTT (25.1-36.5) SECONDS Sodium (137-145) mmol/L Potassium (3.4-5.1) mmol/L Chloride (98-107) mmol/L Carbon Dioxide (22-32) mmol/L BUN (9-20) mg/dL Creatinine (0.66-1.25) mg/dL Estimated GFR (>60) mL/min BUN/Creatinine Ratio (6-22) Glucose (70-99) mg/dL Lactate (0.7-2.1) mmol/L Calcium (8.4-10.2) mg/dL Magnesium (1.6-2.3) mg/dL Total Bilirubin (0.2-1.3) mg/dL AST (17-59) IU/L ALT (<50) IU/L Alkaline Phosphatase (38-126) U/L Total Creatine Kinase (55-170) U/L Troponin I (0.01-0.034) ng/mL NT-Pro-B Natriuret Pep (<450) pg/mL Total Protein (6.3-8.2) g/dL Albumin (3.5-5.0) g/dL Globulin (1.7-4.1) g/dL Albumin/Globulin Ratio (1.0-2.8) Lipase (23-300) U/L Urine Color Yellow Urine Appearance Clear Urine pH 6.0 (4.5-8.0) Ur Specific [place] 1.010 (1.000-1.035) Urine Protein Negative (Negative) Urine Glucose (UA) Negative (Negative) g/dL Urine Ketones Negative (NEGATIVE) Urine Occult Blood Negative (Negative) Urine Nitrate Negative (Negative) Urine Bilirubin Negative (NEGATIVE) Urine Urobilinogen 0.2 (0.2) E.U./dL Ur Leukocyte Esterase Negative (NEGATIVE) Urine RBC 1-5/hpf (0-5/HPF) Urine WBC 1-5/hpf (0-5/HPF) Ur Squamous Epith Cells 1-5 /hpf (0-5/HPF) Calcium Oxalate Crystal Occasional H Urine Bacteria Occasional (0-1) (None) Hyaline Casts 0-1/lpf (None) Ur Culture Indicated? Cult not indicated Vol Urine Centrifuged 10ml (spun) Ethyl Alcohol ( - 10) mg/dL Imaging Data Left wrist x-ray series: Radiologist's Impression: [address] [address] XRay Report Signed Patient: Clay To MR#: [id number] : 1950 Acct:[id number] Age/Sex: 74 / M Date of Service: 03/22/25 Loc: ED Accession Number: [id number] Procedure: XR wrist LT min 3V Ordering Provider: Domenic Altamirano MD PROCEDURE: XR WRIST LT MIN 3V INDICATIONS: fall TECHNIQUE: 4 views of the wrist were acquired. COMPARISON: None. FINDINGS: Acute, mildly impacted fracture of the distal ulnar diaphysis with mild dorsal dislocation of the dominant distal fracture fragment. No other acute fracture or dislocation. IMPRESSION: Acute, mildly impacted and displaced fracture of the distal ulnar diaphysis. Dictated by: Freddy Clemons M.D. on 03/22/2025 at 22:27 Approved by: Freddy Clemons M.D. on 03/22/2025 at 22:29 CT scan - head: Radiologist's Impression: Close Cervical Spine CT (Signed) Dg Frye - 03/22/25 Chest X-Ray (Signed) Freddy Clemons - 03/22/25 Elbow X-Ray (Signed) Freddy Clemons - 03/22/25 Hand X-Ray (Signed) Freddy Clemons - 03/22/[address] (Signed) Dg Frye - 03/22/25 Wrist X-Ray (Signed) Freddy Clemons - 03/22/25 [place] [address] CT Scan Report Signed Patient: Clay To MR#: [id number] : 1950 Acct:[id number] Age/Sex: 74 / M Date of Service: 03/22/25 Loc: ED Accession Number: [id number] Procedure: CT head/brain wo con Ordering Provider: Domenic Altamirano MD PROCEDURE: CT HEAD/BRAIN WO CON INDICATIONS: fall TECHNIQUE: Noncontrast 4.5 mm thick angled axial sections acquired from the foramen magnum to the vertex, with coronal and sagittal reformats. For radiation dose reduction, the following was used: automated exposure control, adjustment of mA and/or kV according to patient size. COMPARISON: None. FINDINGS: Image quality: Diagnostic. CSF spaces: Basal cisterns are patent. No extra-axial fluid collections. The ventricles are symmetric in size and shape. Brain: No acute intracranial hemorrhage or mass effect. There is cerebral volume loss, with resultant ventricular and sulcal prominence. There are periventricular and deep white matter chronic small vessel ischemic changes. There is intracranial internal carotid artery atherosclerosis. Skull and face: Small left parietal scalp hematoma. Calvarium and visualized facial bones appear intact, without suspicious lesions. Sinuses: Visualized sinuses and mastoids are clear. IMPRESSION: Small left parietal scalp hematoma. No skull fracture. No acute intracranial hemorrhage. Approved by: Dg Frye M.D. on 03/22/2025 at 21:46 CT - cervical spine: Radiologist's Impression: [address] [address] [address] Scan Report Signed Patient: Clay To MR#: [id number] : 1950 Acct:[id number] Age/Sex: 74 / M Date of Service: 03/22/25 Loc: ED Accession Number: [id number] Procedure: CT cervical spine wo con Ordering Provider: Domenic Altamirano MD PROCEDURE: CT CERVICAL SPINE WO CON INDICATIONS: fall TECHNIQUE: Noncontrast 3 mm thick sections acquired from the skull base to the T4 level. Sagittal and coronal reformats were then constructed. For radiation dose reduction, the following was used: automated exposure control, adjustment of mA and/or kV according to patient size. COMPARISON: None. FINDINGS: Image quality: Excellent. Bones: No acute fractures or dislocations. Scoliotic curvature of the upper thoracic spine is partially included. Visualized superior ribs are intact. Multilevel disc space narrowing and degenerative endplate changes. Multilevel uncovertebral joint and facet hypertrophy. Soft tissues: Prevertebral soft tissues are normal in thickness. No paravertebral hematomas. No apical pneumothoraces. IMPRESSION: No acute displaced fracture or traumatic subluxation. Approved by: Dg Frye M.D. on 03/22/2025 at 21:52 Left hand x-ray series: Radiologist's Impression: [address] [address] XRay Report Signed Patient: Clay To MR#: [id number] : 1950 Acct:[id number] Age/Sex: 74 / M Date of Service: 03/22/25 Loc: ED Accession Number: [id number] Procedure: XR hand LT min 3V Ordering Provider: Domenic Altamirano MD PROCEDURE: XR HAND LT MIN 3V INDICATIONS: fall TECHNIQUE: 3 views of the hand(s) acquired. COMPARISON: [facility], , XR ELBOW LT MIN 3V, 03/22/2025, 20:41. FINDINGS: Diffuse osseous demineralization. No acute fracture or dislocation. The scapholunate interval is preserved. No carpal bone sclerosis. Mild 1st CMC osteoarthritis. IMPRESSION: No acute fracture or dislocation of the left hand. Dictated by: Freddy Clemons M.D. on 03/22/2025 at 22:25 Approved by: Freddy Clemons M.D. on 03/22/2025 at 22:26 Left elbow x-ray series: Radiologist's Impression: [address] [address] XRay Report Signed Patient: Clay To MR#: [id number] : 1950 Acct:[id number] Age/Sex: 74 / M Date of Service: 03/22/25 Loc: ED Accession Number: [id number] Procedure: XR elbow LT min 3V Ordering Provider: Domenic Altamirano MD PROCEDURE: XR ELBOW LT MIN 3V INDICATIONS: fall TECHNIQUE: 3 views of the elbow were acquired. COMPARISON: None. FINDINGS: No acute fracture or dislocation. The joint spaces are preserved. No significant joint effusion. IMPRESSION: No acute fracture or dislocation of the left elbow. Dictated by: Freddy Clemons M.D. on 03/22/2025 at 22:23 Approved by: Freddy Clemons M.D. on 03/22/2025 at 22:24 Chest x-ray: Radiologist's Impression: [address] [address] XRay Report Signed Patient: Clay To MR#: [id number] : 1950 Acct:[id number] Age/Sex: 74 / M Date of Service: 03/22/25 Loc: ED Accession Number: [id number] Procedure: XR chest 1V Ordering Provider: Domenic Altamirano MD PROCEDURE: XR CHEST 1V INDICATIONS: Chest Pain TECHNIQUE: One view of the chest was acquired. COMPARISON: [facility], CR, XR CHEST 1V, 12/05/2019, 13:18. [facility], CR, XR CHEST 2V, 02/06/2019, 12:17. FINDINGS: Surgical changes and devices: Left axillary surgical clips. Lungs and pleura: Diffuse reticulated opacification without a focal consolidation, likely representing chronic changes. No pleural effusions or pneumothorax. Mediastinum: Mediastinal contours appear normal. Heart size is normal. Bones and chest wall: No suspicious bony lesions. Overlying soft tissues appear unremarkable. IMPRESSION: No acute cardiothoracic process. Dictated by: Freddy Clemons M.D. on 03/22/2025 at 22:22 Approved by: Freddy Clemons M.D. on 03/22/2025 at 22:23 CT scan - abdomen/pelvis: Radiologist's Impression: [place] [address] CT Scan Report Signed Patient: Clay To MR#: [id number] : 1950 Acct:[id number] Age/Sex: 74 / M Date of Service: 03/22/25 Loc: ED Accession Number: [id number] Procedure: CT abdomen pelvis w con Ordering Provider: Domenic Altamirano MD PROCEDURE: CT ABDOMEN PELVIS W CON INDICATIONS: increasing lactate unclear cause TECHNIQUE: After the administration of intravenous contrast, axial sections acquired from the lung bases to the pubic symphysis. Coronal and sagittal reformats were performed. For radiation dose reduction, the following was used: automated exposure control, adjustment of mA and/or kV according to patient size. COMPARISON: [facility], CT, ABDOMEN/PELVIS WITH CONTRAST, 04/09/2016, 8:37. FINDINGS: Image quality: Diagnostic. Peritoneum: No pneumoperitoneum or ascites. Bones: No acute osseous abnormality. Lower Chest: No acute abnormality. Liver: Normal in size and contour. Gallbladder: No stones or pericholecystic fluid. Biliary tree: No intrahepatic or extrahepatic biliary ductal dilatation. Pancreas: Mild pancreatic ductal dilatation with coarse calcifications at the pancreatic head (2/51), likely secondary to episodes of prior pancreatitis. Spleen: Normal in size and contour. Kidneys: Mild left hydroureteronephrosis secondary to a 3 mm calculus at the left ureterovesicular junction (2/128). Nonobstructive right inferior calyceal 5 mm calculus (3/52). Fullness of the right collecting system without an obstructing calculus. Adrenals: No adrenal nodularity. Bladder: Moderately distended urinary bladder measuring 16.8 cm in the craniocaudal dimension. : Prostate bed surgical clips. Stomach: Normal in size and contour. Bowel: Mild mural thickening of the mid-lower rectum (4/74; 2/136). Nondilated fluid-filled appendix (3/43). Fluid in the proximal colon. Lymph Nodes: No retroperitoneal, mesenteric, or inguinal lymphadenopathy. Vascular: No abdominal aortic aneurysm. The visualized arterial vasculature is patent. Mild aortoiliac atherosclerosis. Soft Tissues: No acute abnormality. IMPRESSION: 1. Mild left hydroureteronephrosis secondary to a 3 mm ureterovesicular junction calculus. 2. Nonobstructive right inferior calyceal nephrolithiasis. 3. Moderate urinary bladder distention. 4. Fluid in the colon, which can be seen in the setting of diarrhea. 5. Nonspecific mural thickening of the mid-lower rectum. Please correlate with available colonoscopy records. 6. Sequelae of chronic pancreatitis. Dictated by: Freddy Clemons M.D. on 03/23/2025 at 0:53 Approved by: Freddy Clemons M.D. on 03/23/2025 at 1:02 ECG Data Attestation: I personally reviewed and interpreted this ECG as follows: Interpretation: Sinus bradycardia with rate of 56, first-degree AV block with ND interval 262. No obvious ST segment elevation or depression changes. QRS 94, QTC 441. [facility] Narrative Medical decision making narrative: 74-year-old male with recent alcohol use, fell from 2nd stair going upstairs, fell backwards, posterior oral lateral left scalp laceration, in C-collar. Also with left upper extremity injuries. Modified trauma activation by mechanism and injury multifocal. Primary survey: Airway, breathing, circulation intact. GCS 15. Secondary survey: See physical exam sections. CT head, cervical spine. X-ray left upper extremities. Keep NPO. Lat gel to left scalp wound. CT head noncontrast. Parietal left scalp laceration, no cranial fractures, no brain injury patterns. See radiology report. CT cervical spine. No acute injury patterns noted. See radiology report. Chest x-ray no acute changes. See radiology report. X-ray left hand series, no acute changes. See radiology report. X-ray left elbow series, no acute changes. See radiology report. X-ray left wrist shows distal ulna impacted fracture. See radiology report. Placed in left sugar-tong splint with sling. Scalp laceration repaired with roselyn x3, see separate procedure note. Low potassium noted, oral potassium given. Blood alcohol level 180s noted. Initial lactate elevation, IV fluids. We will repeat lactate. Lactate increased from 4.4->4.7, unclear cause. Urinalysis still pending. We will add CT abdomen and pelvis. IV Ceftriaxone empiric after blood cultures. Lactate decreased to 4.4 again, slightly lower but still elevated. Urinalysis negative. CT abdomen and pelvis. Shows left hydro ureteral nephrosis from 3 mm UVJ calculus, nonobstructing right kidney stone changes, moderate urinary bladder distention, fluid in the colon which can be seen with diarrhea, nonspecific mural thickening mid lower rectum, sequelae of chronic pancreatitis. See radiology report. Case discussed with Urology Dr. Scott, regarding the 3 mm ureteral stone, no urinary tract infection confirmed, no emergent ureteral stenting, but he can consult as inpatient if patient admitted. We will consult hospitalist regarding persistent lactate elevation. Colonic thickening might be result of prostate cancer and XRT in the past. Normotensive thus far. 0520, case discussed with hospitalist Dr. Irving who accepts patient for admission to inpatient service Critical Care Time Critical Care Time Critical Care Time: Yes Total Critical Care Time: 35 Attestation: The high probability of a clinically significant, sudden or life threatening deterioration of the [musculoskeletal, cerebrovascular, abdominopelvic, genitourinary] system(s) required my full and direct attention, intervention and personal management. The aggregate critical care time was [35] minutes. This time is in addition to time spent performing reported procedures but includes the following: [x] Data Review and interpretation [x] Patient assessment and monitoring of vital signs [x] Documentation [x] Medication orders and management Discharge Plan Departure Patient Disposition: Admitted As Inpatient Clinical Impression: Ground-level fall, Laceration of scalp, Hypokalemia, Left ulnar fracture, High serum lactate, Alcohol intoxication Admit Date/Time: 03/23/25 05:25 Admit Provider: Fernando Louise
[2025-03-22 21:29] LABS: Add Manual Diff / Slide Review NO; Basophils Absolute Auto 0 /uL (0-100); Basophils Percent Auto 0.4 % (0-2); Eosinophils Absolute Auto 0 /uL (0-450); Eosinophils Percent Auto 0.6 % (2-4); Hematocrit 38.9 % (41-53); Hemoglobin 13.3 g/dL (13.5-17.5); Lymphocytes Absolute Auto 1200 /uL (1100-4500); Lymphocytes Percent Auto 20.7 % (25-40); Mean Corpuscular Hemoglobin 34.3 PG (26-34); Mean Corpuscular Volume 100.9 fL (80-100); Monocytes Absolute Auto 400 /uL (0-900); Monocytes Percent Auto 6.8 % (3-14); Neutrophils Absolute Auto 4000 /uL (1500-7000); Neutrophils Percent Auto 71.5 % (50-75); Platelet Count 220 X10^3/uL (150-400); Red Blood Cell Count 3.86 X10^6/uL (4.5-5.9); Red Cell Distribution Width 13.7 % (11.6-14.8); White Blood Cell Count 5.7 X10^3/uL (4.5-11.0)
[2025-03-22 21:38] LABS: Prothrombin Time 11.4 SECONDS (9.4-12.5)
[2025-03-22 21:41] LABS: PTT Partial Thromboplastin Tim 26 SECONDS (25.1-36.5)
[2025-03-22 21:43] LABS: Alanine Aminotransferase 19 IU/L (<50); Albumin 3.9 g/dL (3.5-5.0); Albumin Globulin Ratio 1.6 (1.0-2.8); Alkaline Phosphatase 67 U/L (38-126); Aspartate Aminotransferase 26 IU/L (17-59); BUN Creatinine Ratio 15.1 (6-22); Bilirubin Total 0.5 mg/dL (0.2-1.3); Blood Urea Nitrogen 11 mg/dL (9-20); Calcium 9.5 mg/dL (8.4-10.2); Carbon Dioxide 19 mmol/L (22-32); Chloride 112 mmol/L (98-107); Creatine Kinase 33 U/L (55-170); Estimated Glomerular Filt Rate > 60 mL/min (>60); Globulin 2.5 g/dL (1.7-4.1); Glucose 112 mg/dL (70-99); HEMOLYSIS < 15 (0-50); Lipase 402 U/L (23-300); Magnesium 2.1 mg/dL (1.6-2.3); Potassium 3.1 mmol/L (3.4-5.1); Sodium 141 mmol/L (137-145); Total Protein 6.4 g/dL (6.3-8.2)
[2025-03-22 21:51] LABS: Lactate (Lactic Acid) 4.4 mmol/L (0.7-2.1)
[2025-03-22 21:54] LABS: NT-proBNP (BNP-Adult 18+) 419 pg/mL (<450); Troponin I < 0.012 ng/mL (0.01-0.034)
[2025-03-22] MEDS: LACTATED RINGERS 1,000 ML 1000 ML IV (22:02)
[2025-03-22] MEDS: LIDOCAINE/PRILOCAINE 5 GM TOP (22:11)
[2025-03-22 22:55] LABS: Lactate (Lactic Acid) 4.7 mmol/L (0.7-2.1)
[2025-03-22] MEDS: POTASSIUM CHLORIDE 20 MEQ/15 ML UDC 40 MEQ PO (22:55)
[2025-03-22] MEDS: BACITRACIN OINT 0.9 GM PCKT 1 APPLIC TOP (22:56)
--- NOTE | 2025-03-22 23:01 | DI.CT.S_ITS ---
PROCEDURE: CT ABDOMEN PELVIS W CON INDICATIONS: increasing lactate unclear cause TECHNIQUE: After the administration of intravenous contrast, axial sections acquired from the lung bases to the pubic symphysis. Coronal and sagittal reformats were performed. For radiation dose reduction, the following was used: automated exposure control, adjustment of mA and/or kV according to patient size. COMPARISON: [facility], CT, ABDOMEN/PELVIS WITH CONTRAST, 04/09/2016, 8:37. FINDINGS: Image quality: Diagnostic. Peritoneum: No pneumoperitoneum or ascites. Bones: No acute osseous abnormality. Lower Chest: No acute abnormality. Liver: Normal in size and contour. Gallbladder: No stones or pericholecystic fluid. Biliary tree: No intrahepatic or extrahepatic biliary ductal dilatation. Pancreas: Mild pancreatic ductal dilatation with coarse calcifications at the pancreatic head (2/51), likely secondary to episodes of prior pancreatitis. Spleen: Normal in size and contour. Kidneys: Mild left hydroureteronephrosis secondary to a 3 mm calculus at the left ureterovesicular junction (2/128). Nonobstructive right inferior calyceal 5 mm calculus (3/52). Fullness of the right collecting system without an obstructing calculus. Adrenals: No adrenal nodularity. Bladder: Moderately distended urinary bladder measuring 16.8 cm in the craniocaudal dimension. : Prostate bed surgical clips. Stomach: Normal in size and contour. Bowel: Mild mural thickening of the mid-lower rectum (4/74; 2/136). Nondilated fluid-filled appendix (3/43). Fluid in the proximal colon. Lymph Nodes: No retroperitoneal, mesenteric, or inguinal lymphadenopathy. Vascular: No abdominal aortic aneurysm. The visualized arterial vasculature is patent. Mild aortoiliac atherosclerosis. Soft Tissues: No acute abnormality. IMPRESSION: 1. Mild left hydroureteronephrosis secondary to a 3 mm ureterovesicular junction calculus. 2. Nonobstructive right inferior calyceal nephrolithiasis. 3. Moderate urinary bladder distention. 4. Fluid in the colon, which can be seen in the setting of diarrhea. 5. Nonspecific mural thickening of the mid-lower rectum. Please correlate with available colonoscopy records. 6. Sequelae of chronic pancreatitis. Dictated by: Freddy Clemons M.D. on 03/23/2025 at 0:53 Approved by: Freddy Clemons M.D. on 03/23/2025 at 1:02
[2025-03-22 23:02] LABS: Reflexed Lactate in 2 Hours Y
[2025-03-22 23:07] LABS: Ethanol (ETOH) 186 mg/dL
[2025-03-23] VITALS (63 sets, daily range): BP systolic 130–224; BP diastolic 62–114; PULSE 50–107; RESP 10–42; TEMP 36.9–37.2; O2SAT 93–98; BMI 27.8; BMI 26.5
[2025-03-23 00:13] LABS: Reflexed Lactate in 2 Hours Y
[2025-03-23 01:07] LABS: Lactate 2HR (Lactic Acid Rflx) 4.4 mmol/L (0.7-2.1)
[2025-03-23] MEDS: SODIUM CHLORIDE 0.9% 1,000 ML 1000 ML IV (02:37)
[2025-03-23] MEDS: HYDROMORPHONE 0.5 MG INJ IV ×6 (02:55→21:09)
[2025-03-23] MEDS: cefTRIAXone 1,000 MG in SODIUM CHLORIDE 0.9% 100 ML 200 MG IV (03:47)
[2025-03-23 04:24] LABS: Appearance Urine UA CLEAR; Bilirubin Urine UA NEGATIVE (NEGATIVE); Color Urine UA YELLOW; Glucose Urine UA NEGATIVE (Negative); Ketones Urine UA NEGATIVE (NEGATIVE); Leukocyte Esterase Urine UA NEGATIVE (NEGATIVE); Nitrite Urine UA NEGATIVE (Negative); Occult Blood Urine UA NEGATIVE (Negative); Protein Urine UA NEGATIVE (Negative); Urobilinogen Urine UA 0.2 E.U./dL (0.2)
[2025-03-23 04:25] LABS: Urine Volume 10mL (spun)
[2025-03-23 04:26] LABS: Bacteria Urine Occasional (0-1); Calcium Oxalate Crystals Urine Occasional; Hyaline Casts Urine 0-1/LPF; RBC Urine 1-5/HPF (0-5/HPF); Squamous Epithelial Cell Urine 1-5 /HPF (0-5/HPF); WBC Urine 1-5/HPF (0-5/HPF)
[2025-03-23 04:27] LABS: Culture Indicated Urine Cult Not Indicated
[2025-03-23] MEDS: BACITRACIN OINT 0.9 GM PCKT 3 APPLIC TOP (04:36)
--- NOTE | 2025-03-23 07:06 | PM.HP.1 ---
History of Present Illness History of Present Illness Date Patient Seen: 03/23/25 Time Patient Seen: 06:40 Chief complaint: glf-hit head Narrative: 74 y/o with PMH of prostate adenocarcinoma, HTN, gout and alcohol use, sustained GLF earlier today while intoxicated with alcohol. Admitted with left elbow, left wrist and scalp lacerations and left ulnar fracture. Imaging with obstructing ureteral stone, hydronephrosis and possible retrocardiac left lung infiltrate. Elevated lactate. No evidence of pyuria, w/o fever or chills, w/o shortness of breath or cough. Discussed between ED and urology who will consult. Patient was admitted for empiric abx, IVFs, NPO for possible urology intervention with possibility of elevated lactate 2nd to alcoholism [facility] Medical History (Updated 03/23/25 @ 07:29 by Fernando Irving MD) Prostate cancer metastatic to intrapelvic lymph node History of malignant neoplasm of prostate Biochemically recurrent malignant neoplasm of prostate H/O ETOH abuse Elective surgery Gout GERD (gastroesophageal reflux disease) Elevated cholesterol HTN (hypertension) Surgical History Hx of sinus surgery History of shoulder surgery S/P excision of vocal cord nodule Hx of prostatectomy Family History Brother Cancer Gout Mother Stroke Social History marital status: number of children: 5 household members: significant other Previous occupational history: [employer] retired [employer] Smoking Status: Unknown if ever smoked Tobacco: How many years used: 40 alcohol intake: current caffeine: Yes additional social history: The patient admits to smoking cigarettes but does not drink alcohol or use any drugs. Meds Home Medications and Allergies Home Medications Medication Instructions Recorded Confirmed Type atorvastatin 20 mg tablet (Lipitor) 20 mg PO BEDTIME ##0 07/12/12 12/22/23 History allopurinol 100 mg tablet 100 mg PO QPM 04/14/18 12/22/23 History ibuprofen 600 mg tablet 600 mg PO Q6H PRN atypical chest 12/05/19 12/22/23 Rx pain #20 tabs lisinopril 10 mg tablet 20 mg PO DAILY HTN 11/02/23 12/22/23 History bicalutamide 50 mg tablet (Casodex) 50 mg PO DAILY #30 tabs 12/22/23 12/22/23 Rx Allergies Allergy/AdvReac Type Severity Reaction Status Date / Time No Known Drug Allergies Allergy Verified 03/22/25 20:32 Review of Systems Constitutional Comments: without fever or chills Cardiovascular Comments: w/o chest pain or palpitations Respiratory Comments: w/o pleursy, cough or shortness of breath Gastrointestinal Comments: nauseated Genitourinary Comments: w/o flank pain, dysuria Psychiatric Comments: w/o hallucinations or anxiety Exam Vital Signs (past 8 hours): - 03/22/25 23:15 03/22/25 23:15 03/22/25 23:34 Pulse Rate 61 69 Respiratory Rate 26 H 21 Blood Pressure 149/76 H Pulse Oximetry 99 97 03/23/25 00:00 03/23/25 00:25 03/23/25 00:25 Pulse Rate 58 L 72 Respiratory Rate 21 Blood Pressure 133/67 Pulse Oximetry 97 96 03/23/25 00:30 03/23/25 00:30 03/23/25 00:45 Pulse Rate 61 66 Respiratory Rate 17 17 Blood Pressure 163/77 H Pulse Oximetry 98 98 03/23/25 00:45 03/23/25 01:00 03/23/25 01:00 Pulse Rate 66 Respiratory Rate 16 Blood Pressure 144/71 H 153/81 H Pulse Oximetry 97 03/23/25 01:15 03/23/25 01:15 03/23/25 01:30 Pulse Rate 77 67 Respiratory Rate 27 H Blood Pressure 179/91 H Pulse Oximetry 97 98 03/23/25 01:30 03/23/25 01:45 03/23/25 01:45 Pulse Rate 73 Respiratory Rate Blood Pressure 140/80 146/79 H Pulse Oximetry 98 03/23/25 02:00 03/23/25 02:00 03/23/25 02:15 Pulse Rate 68 Respiratory Rate 12 Blood Pressure 145/79 H 154/83 H Pulse Oximetry 98 03/23/25 02:15 03/23/25 02:30 03/23/25 02:30 Pulse Rate 67 66 Respiratory Rate 14 21 Blood Pressure 154/77 H Pulse Oximetry 97 97 03/23/25 02:45 03/23/25 02:45 03/23/25 03:00 Pulse Rate 66 70 Respiratory Rate 19 18 Blood Pressure 159/79 H Pulse Oximetry 98 97 03/23/25 03:00 03/23/25 03:15 03/23/25 03:15 Pulse Rate 58 L Respiratory Rate 22 Blood Pressure 151/77 H 160/86 H Pulse Oximetry 98 03/23/25 04:24 03/23/25 04:25 03/23/25 04:25 Pulse Rate 64 62 Respiratory Rate 23 Blood Pressure 194/89 H Pulse Oximetry 98 98 03/23/25 04:30 03/23/25 04:30 03/23/25 04:45 Pulse Rate 61 65 Respiratory Rate 17 10 L Blood Pressure 189/92 H Pulse Oximetry 97 96 03/23/25 04:45 03/23/25 05:00 03/23/25 05:30 Pulse Rate 66 62 Respiratory Rate 16 17 Blood Pressure 155/83 H Pulse Oximetry 95 94 03/23/25 05:30 Pulse Rate Respiratory Rate Blood Pressure 183/87 H Pulse Oximetry Oxygen Delivery Method Room Air Narrative Exam Narrative: General - in no distress, at bedside HEENT - traumatic - repaired parietal laceration with 3 stitches MSK - Lt forearm in cast for broken ulna, lacerated Lt elbow and wrist Neuro - w/o focal muscle weakness or numbness, not tremulous GI - abdomen not tender UG - w/o flank tenderness Psych - lucid, normal mood, affect and judgment Objective ECG Impression: Sinus bradycardia 56, QTc 481 ms Imaging xray Lt arm: Radiologist's impression: Acute, mildly impacted and displaced fracture of the distal ulnar diaphysis. Chest x-ray: Radiologist's impression: No acute cardiothoracic process. CT scan - abdomen: Radiologist's impression: 1. Mild left hydroureteronephrosis secondary to a 3 mm ureterovesicular junction calculus. 2. Nonobstructive right inferior calyceal nephrolithiasis. 3. Moderate urinary bladder distention. 4. Fluid in the colon, which can be seen in the setting of diarrhea. 5. Nonspecific mural thickening of the mid-lower rectum. Please correlate with available colonoscopy records. 6. Sequelae of chronic pancreatitis. CT scan - head: Radiologist's impression: Small left parietal hematoma Labs 03/22/25 21:10 03/22/25 21:10 Labs: Laboratory Results - last 24 hr 03/22/25 03/22/25 03/23/25 21:10 22:34 00:40 WBC 5.7 RBC 3.86 L Hgb 13.3 L Hct 38.9 L MCV 100.9 H MCH 34.3 H MCHC 34.0 RDW 13.7 Plt Count 220 Neut % (Auto) 71.5 Lymph % (Auto) 20.7 L [place] % (Auto) 6.8 Eos % (Auto) 0.6 L Baso % (Auto) 0.4 Neut # (Auto) 4000 Lymph # (Auto) 1200 [place] # (Auto) 400 Eos # (Auto) 0 Baso # (Auto) 0 PT 11.4 INR 1.0 APTT 26 Sodium 141 Potassium 3.1 L Chloride 112 H Carbon Dioxide 19 L BUN 11 Creatinine 0.73 Estimated GFR > 60 BUN/Creatinine Ratio 15.1 Glucose 112 H Lactate 4.4 H* 4.7 H* 4.4 H* Calcium 9.5 Magnesium 2.1 Total Bilirubin 0.5 AST 26 ALT 19 Alkaline Phosphatase 67 Total Creatine Kinase 33 L Troponin I < 0.012 NT-Pro-B Natriuret Pep 419 Total Protein 6.4 Albumin 3.9 Globulin 2.5 Albumin/Globulin Ratio 1.6 Lipase 402 H Urine Color Urine Appearance Urine pH Ur Specific [place] Urine Protein Urine Glucose (UA) Urine Ketones Urine Occult Blood Urine Nitrate Urine Bilirubin Urine Urobilinogen Ur Leukocyte Esterase Urine RBC Urine WBC Ur Squamous Epith Cells Calcium Oxalate Crystal Urine Bacteria Hyaline Casts Ur Culture Indicated? Vol Urine Centrifuged Ethyl Alcohol 186 H 03/23/25 03:55 WBC RBC Hgb Hct MCV MCH MCHC RDW Plt Count Neut % (Auto) Lymph % (Auto) [place] % (Auto) Eos % (Auto) Baso % (Auto) Neut # (Auto) Lymph # (Auto) [place] # (Auto) Eos # (Auto) Baso # (Auto) PT INR APTT Sodium Potassium Chloride Carbon Dioxide BUN Creatinine Estimated GFR BUN/Creatinine Ratio Glucose Lactate Calcium Magnesium Total Bilirubin AST ALT Alkaline Phosphatase Total Creatine Kinase Troponin I NT-Pro-B Natriuret Pep Total Protein Albumin Globulin Albumin/Globulin Ratio Lipase Urine Color Yellow Urine Appearance Clear Urine pH 6.0 Ur Specific [place] 1.010 Urine Protein Negative Urine Glucose (UA) Negative Urine Ketones Negative Urine Occult Blood Negative Urine Nitrate Negative Urine Bilirubin Negative Urine Urobilinogen 0.2 Ur Leukocyte Esterase Negative Urine RBC 1-5/hpf Urine WBC 1-5/hpf Ur Squamous Epith Cells 1-5 /hpf Calcium Oxalate Crystal Occasional H Urine Bacteria Occasional (0-1) Hyaline Casts 0-1/lpf Ur Culture Indicated? Cult not indicated Vol Urine Centrifuged 10ml (spun) Ethyl Alcohol Assessment & Plan Assessment and plan (1) Alcohol intoxication: Status: Acute (2) Alcohol abuse: Status: Acute (3) Ground-level fall: Status: Acute (4) Left ulnar fracture: Status: Acute (5) Laceration of scalp: Status: Acute (6) High serum lactate: Status: Acute (7) Hypokalemia: Status: Acute (8) Prostate cancer metastatic to intrapelvic lymph node: Status: Acute (9) GERD (gastroesophageal reflux disease): Status: Acute (10) HTN (hypertension): Status: Acute Assessment & Plan narrative: Alcohol abuse - does not going through withdrawals, historically - counseled GLF / Ulnar fracture / lacerations - lost balance whiole intoxicated - pain management - abx ointment over repaired lacerations, Lt forearm cast and follow up with orthoSx - PT evaluation Elevated lactate - likely 2nd to alcoholism Lt UVJ 3 mm obstructing stone - w/o flank pain or pyuria - likely not a cause of elevated LA - urology consultation to consider cystoscopy and stenting Prostate Adenocarcinoma - closely followed by urology - undergoing chemo / biologic / radiation Tx - bicalutamide 50 mg daily - Hx of prostatectomy HTN - Lisinopril HLD - statin Gout - allopurinol DVT prophylaxis - SCDs Patient consented to a real time, audio-video telemedicine visit with electronic stethoscope and RN assisting during the exam. Patient located at [place], [place]. Provider located in [place]. Time-Based Coding :: [TOTAL MINUTES] spent with patient and on the chart (including review of chart, obtaining history, exam, reviewing outside data, placing orders, documenting exam and treatment plan, and counseling patient) on [DATE].
[2025-03-23] MEDS: hydrALAZINE 20 MG/ML VIAL 10 MG IV ×2 (07:48→09:41)
[2025-03-23 08:13] LABS: MRSA (Nasal) PCR NOT DETECTED (Not Detect)
[2025-03-23] MEDS: PANTOPRAZOLE 40 MG VIAL IV ×2 (08:46→21:09)
[2025-03-23] MEDS: TAMSULOSIN 0.4 MG CAPSULE PO (08:46)
[2025-03-23] MEDS: SODIUM CHLORIDE 0.9% 1,000 ML 100 ML IV ×2 (08:47→18:12)
--- NOTE | 2025-03-23 09:03 | PM.CN.IH.1 ---
History of Present Illness Consult details Date Patient Seen: 03/23/25 Time Patient Seen: 09:03 Chief complaint: glf-hit head Reason for consult: 3mm left UVJ calculus, elevated lactate Narrative: 74 y/o M w/ biochemically recurrent prostate cancer who consumed alcohol yesterday evening and fell backwards down some stairs. He presented to ER and was noted to have an elevated alcohol level in addition to a distal ulnar fracture, left parietal scalp laceration and a lactate acid of 4.7. The rest of his evaluation was notable for a AFVSS, WBC of 5.7, sCr of 0.7 and an unremarkable UA. His CT Abd/ Pel was notable for a 3mm left UVJ calculus with resultant upstream left mild hydroureteronephrosis and a 5mm right lower pole non-obstructing nephrolith. Urology was consulted regarding the aforementioned stone in the setting of his elevated lactate. He otherwise denies any left flank pain, urinary frequency/urgency or dysuria. Regarding his biochemically recurrent prostate cancer, he was noted to have an elevated PSA in 2010 and underwent a TRUS prostate biopsy that was notable for Antione 4+4=8 prostate adenocarcinoma and ultimately underwent an open retropubic radical prostatectomy with bilateral pelvic lymph node dissection in Jul. His pathology was notable for Antione 4+4=8 prostate adenocarcinoma ([id number]). He was noted to have extracapsular extension without seminal vesicle invasion or positive surgical margins. He was noted to have biochemical recurrence in late 2022 with a PSA of 4.02. He had a PSMA PET-CT in early 2023 that was notable for increased uptake in 3 common iliac and internal iliac lymph nodes. He was started on ADT and referred to Rad Onc. He completed his XRT in May of 2024 and remains on ADT to this day in addition to Abiraterone with Prednisone and Effexor. His most recent PSA in our system was < 0.064 in Dec. Meds Home Medications and Allergies Home Medications Medication Instructions Recorded Confirmed Type atorvastatin 20 mg tablet (Lipitor) 20 mg PO BEDTIME ##0 07/12/12 12/22/23 History allopurinol 100 mg tablet 100 mg PO QPM 04/14/18 12/22/23 History ibuprofen 600 mg tablet 600 mg PO Q6H PRN atypical chest 01/22/20 02/08/24 Rx pain #20 tabs lisinopril 10 mg tablet 20 mg PO DAILY HTN 11/02/23 12/22/23 History bicalutamide 50 mg tablet (Casodex) 50 mg PO DAILY #30 tabs 12/22/23 12/22/23 Rx Allergies Allergy/AdvReac Type Severity Reaction Status Date / Time No Known Drug Allergies Allergy Verified 03/22/25 20:32 Review of Systems Review of Systems Narrative: CONSTITUTIONAL: Denies weight loss, fevers, chills. HEENT: Denies change in vision, hearing. RESP: Denies SOB, cough. CV: Denies palpations, CP. GI: Denies abdominal pain, nausea, vomiting, diarrhea. : Denies dysuria, hematuria, inability to void. MSK: Denies myalgia, joint pain. SKIN: Denies rash, pruritus. NEURO: Denies headache, syncope. PSYCH: Denies recent change in mood, anxiety, depression. Exam Vital Signs (past 8 hours): - 03/23/25 01:15 03/23/25 01:15 03/23/25 01:30 Pulse Rate 77 67 Respiratory Rate 27 H Blood Pressure 179/91 H Pulse Oximetry 97 98 03/23/25 01:30 03/23/25 01:45 03/23/25 01:45 Pulse Rate 73 Respiratory Rate Blood Pressure 140/80 146/79 H Pulse Oximetry 98 03/23/25 02:00 03/23/25 02:00 03/23/25 02:15 Pulse Rate 68 Respiratory Rate 12 Blood Pressure 145/79 H 154/83 H Pulse Oximetry 98 03/23/25 02:15 03/23/25 02:30 03/23/25 02:30 Pulse Rate 67 66 Respiratory Rate 14 21 Blood Pressure 154/77 H Pulse Oximetry 97 97 03/23/25 02:45 03/23/25 02:45 03/23/25 03:00 Pulse Rate 66 70 Respiratory Rate 19 18 Blood Pressure 159/79 H Pulse Oximetry 98 97 03/23/25 03:00 03/23/25 03:15 03/23/25 03:15 Pulse Rate 58 L Respiratory Rate 22 Blood Pressure 151/77 H 160/86 H Pulse Oximetry 98 03/23/25 04:24 03/23/25 04:25 03/23/25 04:25 Pulse Rate 64 62 Respiratory Rate 23 Blood Pressure 194/89 H Pulse Oximetry 98 98 03/23/25 04:30 03/23/25 04:30 03/23/25 04:45 Pulse Rate 61 65 Respiratory Rate 17 10 L Blood Pressure 189/92 H Pulse Oximetry 97 96 03/23/25 04:45 03/23/25 05:00 03/23/25 05:30 Pulse Rate 66 62 Respiratory Rate 16 17 Blood Pressure 155/83 H Pulse Oximetry 95 94 03/23/25 05:30 03/23/25 05:45 03/23/25 05:45 Pulse Rate 63 Respiratory Rate 18 Blood Pressure 183/87 H 172/89 H Pulse Oximetry 96 03/23/25 06:58 03/23/25 07:00 03/23/25 07:00 Pulse Rate 57 L 57 L Respiratory Rate 29 H 42 H Blood Pressure 224/107 H Pulse Oximetry 95 95 03/23/25 07:48 03/23/25 08:00 03/23/25 08:13 Pulse Rate 55 L 56 L 59 L Respiratory Rate 19 17 Blood Pressure 224/114 H Pulse Oximetry 96 98 03/23/25 08:13 03/23/25 08:47 Pulse Rate 50 L Respiratory Rate Blood Pressure 183/81 H 183/81 H Pulse Oximetry Oxygen Delivery Method Room Air Narrative Exam Narrative: GEN: Alert and oriented X3. No acute distress. Well-nourished. EYES: PERRLA, EOMI. HENT: Moist mucus membranes, no scleral icterus, normal neck ROM. RESP: Unlabored breathing, equal rise and fall of chest bilaterally, no cyanosis appreciated. CV: No peripheral edema, unremarkable heart rate. ABD: Soft, non-tender, non-distended, no palpable masses. EXT: No edema, clubbing or cyanosis. SKIN: No rashes or lesions. NEURO: No focal neurologic deficits, CN II-XII grossly intact. PSYCH: Cooperative, appropriate mood and affect. Objective Labs 03/22/25 21:10 03/22/25 21:10 Labs: Laboratory Results - last 24 hr 03/22/25 03/22/25 03/23/25 21:10 22:34 00:40 WBC 5.7 RBC 3.86 L Hgb 13.3 L Hct 38.9 L MCV 100.9 H MCH 34.3 H MCHC 34.0 RDW 13.7 Plt Count 220 Neut % (Auto) 71.5 Lymph % (Auto) 20.7 L [place] % (Auto) 6.8 Eos % (Auto) 0.6 L Baso % (Auto) 0.4 Neut # (Auto) 4000 Lymph # (Auto) 1200 [place] # (Auto) 400 Eos # (Auto) 0 Baso # (Auto) 0 PT 11.4 INR 1.0 APTT 26 Sodium 141 Potassium 3.1 L Chloride 112 H Carbon Dioxide 19 L BUN 11 Creatinine 0.73 Estimated GFR > 60 BUN/Creatinine Ratio 15.1 Glucose 112 H Lactate 4.4 H* 4.7 H* 4.4 H* Calcium 9.5 Magnesium 2.1 Total Bilirubin 0.5 AST 26 ALT 19 Alkaline Phosphatase 67 Total Creatine Kinase 33 L Troponin I < 0.012 NT-Pro-B Natriuret Pep 419 Total Protein 6.4 Albumin 3.9 Globulin 2.5 Albumin/Globulin Ratio 1.6 Lipase 402 H Urine Color Urine Appearance Urine pH Ur Specific [place] Urine Protein Urine Glucose (UA) Urine Ketones Urine Occult Blood Urine Nitrate Urine Bilirubin Urine Urobilinogen Ur Leukocyte Esterase Urine RBC Urine WBC Ur Squamous Epith Cells Calcium Oxalate Crystal Urine Bacteria Hyaline Casts Ur Culture Indicated? Vol Urine Centrifuged Nasal Screen MRSA (PCR) Ethyl Alcohol 186 H 03/23/25 03/23/25 03:55 06:16 WBC RBC Hgb Hct MCV MCH MCHC RDW Plt Count Neut % (Auto) Lymph % (Auto) [place] % (Auto) Eos % (Auto) Baso % (Auto) Neut # (Auto) Lymph # (Auto) [place] # (Auto) Eos # (Auto) Baso # (Auto) PT INR APTT Sodium Potassium Chloride Carbon Dioxide BUN Creatinine Estimated GFR BUN/Creatinine Ratio Glucose Lactate Calcium Magnesium Total Bilirubin AST ALT Alkaline Phosphatase Total Creatine Kinase Troponin I NT-Pro-B Natriuret Pep Total Protein Albumin Globulin Albumin/Globulin Ratio Lipase Urine Color Yellow Urine Appearance Clear Urine pH 6.0 Ur Specific [place] 1.010 Urine Protein Negative Urine Glucose (UA) Negative Urine Ketones Negative Urine Occult Blood Negative Urine Nitrate Negative Urine Bilirubin Negative Urine Urobilinogen 0.2 Ur Leukocyte Esterase Negative Urine RBC 1-5/hpf Urine WBC 1-5/hpf Ur Squamous Epith Cells 1-5 /hpf Calcium Oxalate Crystal Occasional H Urine Bacteria Occasional (0-1) Hyaline Casts 0-1/lpf Ur Culture Indicated? Cult not indicated Vol Urine Centrifuged 10ml (spun) Nasal Screen MRSA (PCR) Not detected Ethyl Alcohol PFSH Medical History Prostate cancer metastatic to intrapelvic lymph node History of malignant neoplasm of prostate Biochemically recurrent malignant neoplasm of prostate H/O ETOH abuse Elective surgery Gout GERD (gastroesophageal reflux disease) Elevated cholesterol HTN (hypertension) Surgical History Hx of sinus surgery History of shoulder surgery S/P excision of vocal cord nodule Hx of prostatectomy Family History Brother Cancer Gout Mother Stroke Social History marital status: number of children: 5 household members: significant other Previous occupational history: [employer] retired [employer] Tobacco & Substance Use Smoking Status: Unknown if ever smoked Tobacco: How many years used: 40 alcohol intake: current Diet and Exercise caffeine: Yes Additional Social History additional social history: The patient admits to smoking cigarettes but does not drink alcohol or use any drugs. Assessment & Plan Assessment and plan (1) Ureteral calculus, left: Status: Acute Plan: 74 y/o M noted to have a 3mm left UVJ calculus with resultant upstream mild hydroureteronephrosis in the setting of an elevated lactate and an otherwise unremarkable WBC or UA. Discussed treatment options to include continued medical expulsion therapy (recommended given the small size, lack of infection and lack of pain/discomfort) vs cystoscopy, ureteroscopy, laser lithotripsy with ureteral stent placement. Discussed risks of the procedure to include pain, bleeding, infection, injury to urethra/bladder/ureter, inability to access the ureter requiring discussion with Interventional Radiology regarding a possible ureteral stent placement in an antegrade fashion vs a possible nephroureteral stent and/or percutaneous nephrostomy tube, urinary tract infection, inability to remove all of the stone in one setting, need for emergent open repair of bladder and/or ureter, need for multiple ureteroscopic interventions necessary to render the patient stone free. At this time, he would prefer to continue with MET and will return to Urology clinic in 6 weeks with a NCCT Pel to eval for interval stone passage. Should his stone still be present, he would require management via a cystoscopy, left ureteroscopy, laser lithotripsy and left ureteral stent placement. (2) Biochemically recurrent malignant neoplasm of prostate: Status: Acute Plan: Noted to have high-risk prostate cancer s/p an open retropubic radical prostatectomy in 2010 followed by BCR in 2022 that has been managed w/ XRT in 2023 followed by continued ADT, Abiraterone/Prednisone and Effexor. His last PSA was undetectable in Dec. He has scheduled follow-up with Rad Onc within the next few months. (3) High serum lactate: Status: Acute Plan: Please see plan above under left ureteral calculus. - No Urgent Urological intervention necessary at this time. - No reason to remain NPO from Urology standpoint. - Please reconsult Urology should additional questions or concerns arise. Time-Based Coding :: [TOTAL MINUTES] spent with patient and on the chart (including review of chart, obtaining history, exam, reviewing outside data, placing orders, documenting exam and treatment plan, and counseling patient) on [DATE]. PROFEE Charge Codes Inpatient or Observation consultation: [id number]
[2025-03-23] MEDS: ONDANSETRON 4 MG/2 ML INJ IV (09:41)
[2025-03-23 10:58] LABS: Lactate (Lactic Acid) 0.6 mmol/L (0.7-2.1)
--- NOTE | 2025-03-23 11:12 | P.HP_ITS ---
History of Present Illness History of Present Illness Date Patient Seen: 03/23/25 Time Patient Seen: 07:40 Chief complaint: glf-hit head Narrative: Night hospitalist note: 74 y/o with PMH of prostate adenocarcinoma, HTN, gout and alcohol use, sustained GLF earlier today while intoxicated with alcohol. Admitted with left elbow, left wrist and scalp lacerations and left ulnar fracture. Imaging with obstructing ureteral stone, hydronephrosis and possible retrocardiac left lung infiltrate. Elevated lactate. No evidence of pyuria, w/o fever or chills, w/o shortness of breath or cough. Discussed between ED and urology who will consult. Patient was admitted for empiric abx, IVFs, NPO for possible urology intervention with possibility of elevated lactate 2nd to alcoholism Interim history: Patient states he tripped walking up stairs yesterday, then fell backwards, hitting the back of his head and bracing his fall with his left arm. He drinks 5 servings of vodka daily. He denies a history of alcohol withdrawal. He has some mild suprapubic pain but denies flank pain or history of kidney stones. He was very hypertensive but states home blood pressures are in the 140s over 70s typically on lisinopril. 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 Meds Home Medications and Allergies Home Medications Medication Instructions Recorded Confirmed Type atorvastatin 20 mg tablet (Lipitor) 20 mg PO BEDTIME ##0 07/12/12 12/22/23 History allopurinol 100 mg tablet 300 mg PO QPM 04/14/18 03/23/25 History lisinopril 10 mg tablet 20 mg PO DAILY HTN 11/02/23 03/23/25 History abiraterone 500 mg tablet 1,000 mg PO QAM 03/23/25 03/23/25 History acetaminophen 325 mg tablet 650 mg PO Q6H PRN Pain (Scale 03/23/25 03/23/25 History (Tylenol) Score 4-6) prednisone 5 mg tablet 5 mg PO DAILY 03/23/25 03/23/25 History venlafaxine 37.5 mg 37.5 mg PO DAILY 03/23/25 03/23/25 History capsule,extended release 24 hr Allergies Allergy/AdvReac Type Severity Reaction Status Date / Time No Known Drug Allergies Allergy Verified 03/22/25 20:32 Review of Systems Review of Systems ROS: Yes All systems reviewed with the patient and are negative except as otherwise documented Exam Vital Signs (past 8 hours): - 03/23/25 03:15 03/23/25 03:15 03/23/25 04:24 Temperature Pulse Rate 58 L 64 Respiratory Rate 22 Blood Pressure 160/86 H Pulse Oximetry 98 98 Oxygen Delivery Method 03/23/25 04:25 03/23/25 04:25 03/23/25 04:30 Temperature Pulse Rate 62 61 Respiratory Rate 23 17 Blood Pressure 194/89 H Pulse Oximetry 98 97 Oxygen Delivery Method 03/23/25 04:30 03/23/25 04:45 03/23/25 04:45 Temperature Pulse Rate 65 Respiratory Rate 10 L Blood Pressure 189/92 H 155/83 H Pulse Oximetry 96 Oxygen Delivery Method 03/23/25 05:00 03/23/25 05:30 03/23/25 05:30 Temperature Pulse Rate 66 62 Respiratory Rate 16 17 Blood Pressure 183/87 H Pulse Oximetry 95 94 Oxygen Delivery Method 03/23/25 05:45 03/23/25 05:45 03/23/25 06:58 Temperature Pulse Rate 63 57 L Respiratory Rate 18 29 H Blood Pressure 172/89 H Pulse Oximetry 96 95 Oxygen Delivery Method 03/23/25 07:00 03/23/25 07:00 03/23/25 07:00 Temperature Pulse Rate 57 L Respiratory Rate 42 H Blood Pressure 224/107 H Pulse Oximetry 95 Oxygen Delivery Method Room Air 03/23/25 07:48 03/23/25 08:00 03/23/25 08:13 Temperature Pulse Rate 55 L 56 L 59 L Respiratory Rate 19 17 Blood Pressure 224/114 H Pulse Oximetry 96 98 Oxygen Delivery Method 03/23/25 08:13 03/23/25 08:30 03/23/25 08:47 Temperature Pulse Rate 53 L 50 L Respiratory Rate 19 Blood Pressure 183/81 H 183/81 H Pulse Oximetry 97 Oxygen Delivery Method 03/23/25 09:00 03/23/25 09:00 03/23/25 09:32 Temperature 98.5 F Pulse Rate 59 L Respiratory Rate 17 Blood Pressure 190/84 H Pulse Oximetry 97 Oxygen Delivery Method 03/23/25 09:41 03/23/25 10:00 Temperature Pulse Rate 67 93 H Respiratory Rate Blood Pressure 192/91 H 166/81 H Pulse Oximetry Oxygen Delivery Method Oxygen Delivery Method Room Air Narrative Exam Narrative: GENERAL: This is a well-nourished, well-developed patient, in no apparent distress. HEAD: Posterior occiput hematoma. No temporal or scalp tenderness. EYES: Pupils equal round and reactive. Extraocular motions intact. No scleral icterus. No injection or drainage. ENT: Mucous membranes pink and moist. NECK: Trachea midline. No JVD, bruits or lymphadenopathy. Supple, nontender, no meningeal signs. CARDIOVASCULAR: Regular rate and rhythm without murmurs, gallops, or rubs. RESPIRATORY: Clear to auscultation. GASTROINTESTINAL: Abdomen soft, non-tender, nondistended. EXTREMITIES: No clubbing, cyanosis, or edema. MUSCULOSKELETAL: Left arm splinted, multiple abrasions on the knuckles of hand. NEUROLOGIC: Alert, oriented, speech fluent, full upper and lower motor strength, no focal deficits evident. DERMATOLOGIC: No rashes or skin lesions. Objective ECG Impression: Sinus bradycardia at 56 beats per minute with 1st degree AV block with premature atrial complexes Imaging *: Radiologist's impression: 1. Cervical spine CT 03/22/2025: No acute displaced fracture or traumatic subluxation. 2. Head CT 03/22/2025: Small left parietal scalp hematoma. No skull fracture. No acute intracranial hemorrhage. 3. Chest x-ray 03/22/2025: No acute cardiothoracic process. 4. Left elbow x-ray 03/22/2025: No acute fracture or dislocation of the left elbow. 5. Left hand x-ray 03/22/2025: No acute fracture or dislocation of the left hand. 6. Left wrist x-ray 03/22/2025: Acute, mildly impacted and displaced fracture of the distal ulnar diaphysis. 7. Abdomen and pelvis CT 03/22/2025: 1. Mild left hydroureteronephrosis secondary to a 3 mm ureterovesicular junction calculus. 2. Nonobstructive right inferior calyceal nephrolithiasis. 3. Moderate urinary bladder distention. 4. Fluid in the colon, which can be seen in the setting of diarrhea. 5. Nonspecific mural thickening of the mid-lower rectum. Please correlate with available colonoscopy records. 6. Sequelae of chronic pancreatitis. Labs 03/22/25 21:10 03/22/25 21:10 Labs: Laboratory Results - last 24 hr 03/22/25 03/22/25 03/23/25 21:10 22:34 00:40 WBC 5.7 RBC 3.86 L Hgb 13.3 L Hct 38.9 L MCV 100.9 H MCH 34.3 H MCHC 34.0 RDW 13.7 Plt Count 220 Neut % (Auto) 71.5 Lymph % (Auto) 20.7 L [place] % (Auto) 6.8 Eos % (Auto) 0.6 L Baso % (Auto) 0.4 Neut # (Auto) 4000 Lymph # (Auto) 1200 [place] # (Auto) 400 Eos # (Auto) 0 Baso # (Auto) 0 PT 11.4 INR 1.0 APTT 26 Sodium 141 Potassium 3.1 L Chloride 112 H Carbon Dioxide 19 L BUN 11 Creatinine 0.73 Estimated GFR > 60 BUN/Creatinine Ratio 15.1 Glucose 112 H Lactate 4.4 H* 4.7 H* 4.4 H* Calcium 9.5 Magnesium 2.1 Total Bilirubin 0.5 AST 26 ALT 19 Alkaline Phosphatase 67 Total Creatine Kinase 33 L Troponin I < 0.012 NT-Pro-B Natriuret Pep 419 Total Protein 6.4 Albumin 3.9 Globulin 2.5 Albumin/Globulin Ratio 1.6 Lipase 402 H Urine Color Urine Appearance Urine pH Ur Specific [place] Urine Protein Urine Glucose (UA) Urine Ketones Urine Occult Blood Urine Nitrate Urine Bilirubin Urine Urobilinogen Ur Leukocyte Esterase Urine RBC Urine WBC Ur Squamous Epith Cells Calcium Oxalate Crystal Urine Bacteria Hyaline Casts Ur Culture Indicated? Vol Urine Centrifuged Nasal Screen MRSA (PCR) Ethyl Alcohol 186 H 03/23/25 03/23/25 03/23/25 03:55 06:16 10:41 WBC RBC Hgb Hct MCV MCH MCHC RDW Plt Count Neut % (Auto) Lymph % (Auto) [place] % (Auto) Eos % (Auto) Baso % (Auto) Neut # (Auto) Lymph # (Auto) [place] # (Auto) Eos # (Auto) Baso # (Auto) PT INR APTT Sodium Potassium Chloride Carbon Dioxide BUN Creatinine Estimated GFR BUN/Creatinine Ratio Glucose Lactate 0.6 L Calcium Magnesium Total Bilirubin AST ALT Alkaline Phosphatase Total Creatine Kinase Troponin I NT-Pro-B Natriuret Pep Total Protein Albumin Globulin Albumin/Globulin Ratio Lipase Urine Color Yellow Urine Appearance Clear Urine pH 6.0 Ur Specific [place] 1.010 Urine Protein Negative Urine Glucose (UA) Negative Urine Ketones Negative Urine Occult Blood Negative Urine Nitrate Negative Urine Bilirubin Negative Urine Urobilinogen 0.2 Ur Leukocyte Esterase Negative Urine RBC 1-5/hpf Urine WBC 1-5/hpf Ur Squamous Epith Cells 1-5 /hpf Calcium Oxalate Crystal Occasional H Urine Bacteria Occasional (0-1) Hyaline Casts 0-1/lpf Ur Culture Indicated? Cult not indicated Vol Urine Centrifuged 10ml (spun) Nasal Screen MRSA (PCR) Not detected Ethyl Alcohol Assessment & Plan Assessment & Plan narrative: Alcohol abuse - does not experience withdrawals, historically - counseled GLF / Ulnar fracture / lacerations - lost balance while intoxicated - pain management - abx ointment over repaired lacerations, Lt forearm cast and follow up with ortho outpatient - PT evaluation Elevated lactate - likely 2nd to alcoholism - resolved at 0.6 this morning Lt UVJ 3 mm obstructing stone - w/o flank pain or pyuria - likely not a cause of elevated LA - urology consultation to consider cystoscopy and stenting Prostate Adenocarcinoma - closely followed by urology - undergoing chemo / biologic / radiation Tx - bicalutamide 50 mg daily - Hx of prostatectomy HTN - Lisinopril - hydralazine prn HLD - statin Gout - allopurinol DVT prophylaxis - SCDs Quality MIPS - Admit I confirm the patient?s Advance Care Plan is present, Code status is documented, Surrogate decision maker is in patient?s record [If Yes, STOP here]: Yes [facility] - Meds 'Current medications' to include all prescriptions, [id number] products, herbals, cannabis/cannabidiol products, and vitamin/mineral/dietary (nutritional) supplements. I have utilized all available resources to obtain, update, or review the patient?s current medications. 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
--- NOTE | 2025-03-23 11:13 | PT-IP ANOTE ---
PT eval order received and EMR reviewed. Checked on pt and spouse in room. pt refused PT and stated that he is tired and not ready for PT. spouse stated that they have been up the whole night and that pt will just rest for today. agreed for PT to check back tomorrow. nurse informed.
[2025-03-23] MEDS: predniSONE 5 MG TABLET PO (12:09)
[2025-03-23] MEDS: lisinopriL 20 MG TABLET PO (12:09)
[2025-03-23] MEDS: VENLAFAXINE ER 37.5 MG CAP PO (12:09)
[2025-03-23 14:27] LABS: Add Manual Diff / Slide Review NO; Basophils Absolute Auto 0 /uL (0-100); Basophils Percent Auto 0.5 % (0-2); Eosinophils Absolute Auto 100 /uL (0-450); Eosinophils Percent Auto 1.1 % (2-4); Hematocrit 36.5 % (41-53); Hemoglobin 12.3 g/dL (13.5-17.5); Lymphocytes Absolute Auto 1000 /uL (1100-4500); Mean Corpuscular HGB Conc 33.7 % (30-36); Mean Corpuscular Hemoglobin 33.8 PG (26-34); Mean Corpuscular Volume 100.1 fL (80-100); Monocytes Absolute Auto 500 /uL (0-900); Monocytes Percent Auto 7.9 % (3-14); Neutrophils Absolute Auto 4500 /uL (1500-7000); Neutrophils Percent Auto 73.5 % (50-75); Platelet Count 216 X10^3/uL (150-400); Red Blood Cell Count 3.64 X10^6/uL (4.5-5.9); White Blood Cell Count 6.1 X10^3/uL (4.5-11.0)
[2025-03-23 14:37] LABS: Alanine Aminotransferase 20 IU/L (<50); Albumin 3.3 g/dL (3.5-5.0); Albumin Globulin Ratio 1.4 (1.0-2.8); Alkaline Phosphatase 60 U/L (38-126); Aspartate Aminotransferase 24 IU/L (17-59); BUN Creatinine Ratio 10.6 (6-22); Bilirubin Total 0.6 mg/dL (0.2-1.3); Blood Urea Nitrogen 9 mg/dL (9-20); Carbon Dioxide 23 mmol/L (22-32); Chloride 112 mmol/L (98-107); Estimated Glomerular Filt Rate > 60 mL/min (>60); Globulin 2.3 g/dL (1.7-4.1); Glucose 114 mg/dL (70-99); HEMOLYSIS < 15 (0-50); Lactate (Lactic Acid) 1.2 mmol/L (0.7-2.1); Potassium 3.4 mmol/L (3.4-5.1); Sodium 139 mmol/L (137-145); Total Protein 5.6 g/dL (6.3-8.2)
--- NOTE | 2025-03-23 16:39 | CM.DANOTE ---
Initial DCP Assessment Note Pt is a 74 yo male, resident of [place], H of prostate adenocarcinoma, HTN, gout and alcohol use, sustained GLF earlier today while intoxicated with alcohol. Admitted with left elbow, left wrist and scalp lacerations and left ulnar fracture. Urology consult - No Urgent Urological intervention necessary at this time. PCP: Cristina Vanegas Payer: Monica COOK Reviewed chart, pt discussed in multidisciplinary rounds this morning. ESTRELLITA 03/24. Met w/patient; patient lives independently with spouse. Patient has had three marriages, 5 children, numerous grandchildren and great grandchildren. 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 Patient admits to needing to cut down on his alcohol use although has no intention of stopping. Patient reports drinking for all of his adult life; drinks approx 3- 6 mixed drinks with vodka, not every day and not to get drunk. Patient denies need for [facility] resources. No barriers identified at this time to patient's safe discharge home w/family to assist. Patient appreciative for the visit, denies needs from this SW team presently. CM team will plan to follow clinical course closely in case any DC needs or concerns arise. 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 No Advance Directives on File No History Provided By Patient,Medical Record Has Patient been admitted in last 30 No days? Prior Living Arrangements House Household Members spouse Type of transporation used prior to Drives own vehicle admit Independent with ADL's Yes Is patient alert and oriented? Yes Barriers to Discharge No Discharge Plan Home Transportation Arrangement Family Referrals Initiated None needed
[2025-03-23] MEDS: ATORVASTATIN 20 MG TABLET PO (21:09)
[2025-03-23] MEDS: allopurinoL 100 MG TABLET 300 MG PO (21:09)
[2025-03-24] VITALS (12 sets, daily range): BP systolic 168–191; BP diastolic 78–91; PULSE 52–60; RESP 15–27; O2SAT 93–96
[2025-03-24] MEDS: HYDROMORPHONE 0.5 MG INJ IV ×2 (01:19→05:20)
[2025-03-24] MEDS: hydrALAZINE 20 MG/ML VIAL 10 MG IV (02:47)
[2025-03-24] MEDS: cefTRIAXone 1,000 MG in SODIUM CHLORIDE 0.9% 100 ML 200 MG IV (05:20)
[2025-03-24] MEDS: PANTOPRAZOLE 40 MG VIAL IV (08:25)
[2025-03-24] MEDS: TAMSULOSIN 0.4 MG CAPSULE PO (08:25)
[2025-03-24] MEDS: predniSONE 5 MG TABLET PO (08:26)
[2025-03-24] MEDS: lisinopriL 20 MG TABLET PO (08:26)
[2025-03-24] MEDS: OXYCODONE IR 5 MG TABLET PO (08:26)
[2025-03-24] MEDS: VENLAFAXINE ER 37.5 MG CAP PO (08:26)
[2025-03-24] MEDS: ONDANSETRON 4 MG/2 ML INJ IV (08:29)
[2025-03-24 08:52] LABS: Add Manual Diff / Slide Review NO; Basophils Absolute Auto 100 /uL (0-100); Eosinophils Absolute Auto 100 /uL (0-450); Eosinophils Percent Auto 1.5 % (2-4); Hematocrit 34.4 % (41-53); Hemoglobin 11.8 g/dL (13.5-17.5); Lymphocytes Absolute Auto 1300 /uL (1100-4500); Mean Corpuscular HGB Conc 34.3 % (30-36); Mean Corpuscular Hemoglobin 34.3 PG (26-34); Mean Corpuscular Volume 99.8 fL (80-100); Monocytes Absolute Auto 500 /uL (0-900); Monocytes Percent Auto 8.1 % (3-14); Neutrophils Absolute Auto 3900 /uL (1500-7000); Neutrophils Percent Auto 67.4 % (50-75); Platelet Count 196 X10^3/uL (150-400); Red Blood Cell Count 3.45 X10^6/uL (4.5-5.9); Red Cell Distribution Width 13.9 % (11.6-14.8); White Blood Cell Count 5.7 X10^3/uL (4.5-11.0)
[2025-03-24 09:10] LABS: Alanine Aminotransferase 16 IU/L (<50); Albumin 3.1 g/dL (3.5-5.0); Albumin Globulin Ratio 1.4 (1.0-2.8); Alkaline Phosphatase 58 U/L (38-126); Aspartate Aminotransferase 22 IU/L (17-59); BUN Creatinine Ratio 14.8 (6-22); Bilirubin Total 0.6 mg/dL (0.2-1.3); Blood Urea Nitrogen 8 mg/dL (9-20); Calcium 9.2 mg/dL (8.4-10.2); Carbon Dioxide 21 mmol/L (22-32); Chloride 112 mmol/L (98-107); Estimated Glomerular Filt Rate > 60 mL/min (>60); Globulin 2.2 g/dL (1.7-4.1); Glucose 103 mg/dL (70-99); HEMOLYSIS 31 (0-50); Potassium 3.5 mmol/L (3.4-5.1); Sodium 139 mmol/L (137-145); Total Protein 5.3 g/dL (6.3-8.2)
--- NOTE | 2025-03-24 11:04 | PM.DS.IH.1 ---
History of Present Illness History of Present Illness Date Patient Seen: 03/24/25 Time Patient Seen: 08:28 Chief complaint: glf-hit head Narrative: Night hospitalist note: 74 y/o with PMH of prostate adenocarcinoma, HTN, gout and alcohol use, sustained GLF earlier today while intoxicated with alcohol. Admitted with left elbow, left wrist and scalp lacerations and left ulnar fracture. Imaging with obstructing ureteral stone, hydronephrosis and possible retrocardiac left lung infiltrate. Elevated lactate. No evidence of pyuria, w/o fever or chills, w/o shortness of breath or cough. Discussed between ED and urology who will consult. Patient was admitted for empiric abx, IVFs, NPO for possible urology intervention with possibility of elevated lactate 2nd to alcoholism Interim history: Patient states he tripped walking up stairs yesterday, then fell backwards, hitting the back of his head and bracing his fall with his left arm. He drinks 5 servings of vodka daily. He denies a history of alcohol withdrawal. He has some mild suprapubic pain but denies flank pain or history of kidney stones. He was very hypertensive but states home blood pressures are in the 140s over 70s typically on lisinopril. Discharge Providers Provider Date of admission: 03/23/25 05:25 Discharge Date: 03/24/25 Primary care physician: Cristina Vanegas MD Consults: 03/23/25 06:54 Consult to Physical Therapy Evaluate & Treat Comment: Physician Instructions: Evaluate and Treat 03/23/25 09:11 Consult to Dietitian, Adult Routine Comment: Reason For Exam: nutrition assessment 03/23/25 11:58 Consult to Dietitian, Adult Routine Comment: Reason For Exam: nutrition assessment score Discharge provider: Linwood Arnett MD Summary Hospital Course Discharge Diagnosis: 1. Ground level fall due to 2/ left ulnar fracture / scalp and other lacerations, status post staple x3 2 scalp 2. Alcohol intoxication 3. Elevated lactate due to alcohol intoxication, resolved. 4. Lt UVJ 3 mm obstructing stone 5. Prostate Adenocarcinoma 6. HTN 7. HLD 8. Gout Hospital Course: The patient was admitted and administered IV fluids, pain control and observation. Symptoms are adequately controlled. There was no evidence of alcohol withdrawal. His left UVJ stone appeared asymptomatic. Urology was consulted and recommended outpatient management. He was administered tamsulosin while in the hospital. He was feeling well overnight and interested in discharge home the following morning with outpatient follow-up. No other issues arose. Status at Discharge Cognitive/behavioral status at discharge: oriented Functional status at discharge: independent ambulation Overall status at discharge: patient is progressing back to baseline Time Spent with Patient Time spent: Less than 30 minutes Exam Vital Signs (past 8 hours): - 03/24/25 03:30 03/24/25 04:00 03/24/25 04:00 Pulse Rate 54 L 54 L Respiratory Rate 15 17 Blood Pressure 189/91 H Pulse Oximetry 95 96 03/24/25 05:21 03/24/25 08:26 Pulse Rate 58 L 58 L Respiratory Rate Blood Pressure 168/78 H 168/78 H Pulse Oximetry Oxygen Delivery Method Room Air Narrative Exam Narrative: GENERAL: This is a well-nourished, well-developed patient, in no apparent distress. HEAD: Posterior scalp hematoma with roselyn x 3. No temporal or scalp tenderness. EYES: Pupils equal round and reactive. Extraocular motions intact. No scleral icterus. No injection or drainage. ENT: Mucous membranes pink and moist. NECK: Trachea midline. No JVD, bruits or lymphadenopathy. Supple, nontender, no meningeal signs. CARDIOVASCULAR: Regular rate and rhythm without murmurs, gallops, or rubs. RESPIRATORY: Clear to auscultation. GASTROINTESTINAL: Abdomen soft, non-tender, nondistended. EXTREMITIES: No clubbing, cyanosis, or edema. MUSCULOSKELETAL: Left arm splinted, multiple abrasions on the knuckles of hand. NEUROLOGIC: Alert, oriented, speech fluent, full upper and lower motor strength, no focal deficits evident. DERMATOLOGIC: No rashes or skin lesions. Objective ECG Impression: Sinus bradycardia at 56 beats per minute with 1st degree AV block with premature atrial complexes Imaging *: Radiologist's impression: 1. Cervical spine CT 03/22/2025: No acute displaced fracture or traumatic subluxation. 2. Head CT 03/22/2025: Small left parietal scalp hematoma. No skull fracture. No acute intracranial hemorrhage. 3. Chest x-ray 03/22/2025: No acute cardiothoracic process. 4. Left elbow x-ray 03/22/2025: No acute fracture or dislocation of the left elbow. 5. Left hand x-ray 03/22/2025: No acute fracture or dislocation of the left hand. 6. Left wrist x-ray 03/22/2025: Acute, mildly impacted and displaced fracture of the distal ulnar diaphysis. 7. Abdomen and pelvis CT 03/22/2025: 1. Mild left hydroureteronephrosis secondary to a 3 mm ureterovesicular junction calculus. 2. Nonobstructive right inferior calyceal nephrolithiasis. 3. Moderate urinary bladder distention. 4. Fluid in the colon, which can be seen in the setting of diarrhea. 5. Nonspecific mural thickening of the mid-lower rectum. Please correlate with available colonoscopy records. 6. Sequelae of chronic pancreatitis. Labs 03/24/25 08:44 03/24/25 08:44 Labs: Laboratory Results - last 24 hr 03/23/25 03/24/25 14:20 08:44 WBC 6.1 5.7 RBC 3.64 L 3.45 L Hgb 12.3 L 11.8 L Hct 36.5 L 34.4 L MCV 100.1 H 99.8 MCH 33.8 34.3 H MCHC 33.7 34.3 RDW 14.0 13.9 Plt Count 216 196 Neut % (Auto) 73.5 67.4 Lymph % (Auto) 17.0 L 22.0 L [place] % (Auto) 7.9 8.1 Eos % (Auto) 1.1 L 1.5 L Baso % (Auto) 0.5 1.0 Neut # (Auto) 4500 3900 Lymph # (Auto) 1000 L 1300 [place] # (Auto) 500 500 Eos # (Auto) 100 100 Baso # (Auto) 0 100 Sodium 139 139 Potassium 3.4 3.5 Chloride 112 H 112 H Carbon Dioxide 23 21 L BUN 9 8 L Creatinine 0.85 0.54 L Estimated GFR > 60 > 60 BUN/Creatinine Ratio 10.6 14.8 Glucose 114 H 103 H Lactate 1.2 Calcium 9.0 9.2 Total Bilirubin 0.6 0.6 AST 24 22 ALT 20 16 Alkaline Phosphatase 60 58 Total Protein 5.6 L 5.3 L Albumin 3.3 L 3.1 L Globulin 2.3 2.2 Albumin/Globulin Ratio 1.4 1.4 [facility] Medical History Biochemically recurrent malignant neoplasm of prostate Elective surgery Elevated cholesterol GERD (gastroesophageal reflux disease) Gout H/O ETOH abuse History of malignant neoplasm of prostate HTN (hypertension) Prostate 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 Discharge Plan Discharge Plan Patient Disposition: Home Provider Discharge Comment: Followup with Dr. Augusta Vanegas 1 week; Followup with [facility] 1 week Discharge orders & Medications Prescriptions: New oxycodone-acetaminophen 5-325 mg tablet 1 tab PO TID PRN (Reason: pain) Qty: 14 0RF Continued atorvastatin [Lipitor] 20 MG tablet 20 mg PO BEDTIME Qty: 0 Patient Comments: pt unsure if it is this or another statin abiraterone 500 mg tablet 1,000 mg PO QAM venlafaxine 37.5 mg capsule,extended release 24hr 37.5 mg PO DAILY prednisone 5 mg tablet 5 mg PO DAILY acetaminophen [Tylenol] 325 mg Tablet 650 mg PO Q6H PRN (Reason: Pain (Scale Score 4-6)) allopurinol 100 mg Tablet 300 mg PO QPM lisinopril 10 mg tablet 20 mg PO DAILY Follow up/Referrals: Cristina Vanegas MD [Primary Care Provider] - Visit Report/Discharge Packet Instructions: DI for Forearm Fracture Stand Alone Forms: Patient Portal/API, Stroke Signs & Symptoms Discharge Data Primary Care Provider: Cristina Vanegas Quality MIPS - Admit I confirm the patient?s Advance Care Plan is present, Code status is documented, Surrogate decision maker is in patient?s record [If Yes, STOP here]: Yes MIPS - Meds 'Current medications' to include all prescriptions, [id number] products, herbals, cannabis/cannabidiol products, and vitamin/mineral/dietary (nutritional) supplements. I have utilized all available resources to obtain, update, or review the patient?s current medications. [If Yes, STOP here]: Yes MIPS - DC The patient has a history of heart transplant or Left Ventricular Assist Device (LVAD). If yes, STOP here.: No The patient has current or prior documentation of left ventricular ejection fraction (LVEF) less than or equal to 40%, or moderate or severely depressed left ventricular systolic function.: No A. The patient was prescribed or already taking an Angiotensin-Converting Enzyme (ASHLEY) Inhibitor, or Angiotensin Receptor Karin (ARB).: Yes B. The patient was prescribed or already taking a beta-karin. [If Yes to Both A & B, STOP here]: No Patient not prescribed/taking ASHLEY or ARB, no reason given.: No Patient not prescribed/taking beta-karin, no reason given.: No PROFEE Charge Codes Discharge inpatient/observation: [id number]
== END 2025-03-24 10:46 | disposition home or self-care (01) ==
LOC: ED 03-23 05:25 → AC 03-23 05:34 → ICU 03-23 08:35 → AC 03-25 08:56 → ICU 03-25 08:56
PROVIDERS: Internal Medicine; Admitting Provider Internal Medicine; Emergency Provider Emergency Medicine; PCP Internal Medicine; Referring Provider Emergency Medicine; Visit Provider Internal Medicine
DX: S01.01XA Laceration without foreign body of scalp, initial encounter (principal); S52.202A Unspecified fracture of shaft of left ulna, initial encounter for closed fracture; W10.8XXA Fall (on) (from) other stairs and steps, initial encounter; Y92.009 Unspecified place in unspecified non-institutional (private) residence as the place of occurrence of the external cause; F10.129 Alcohol abuse with intoxication, unspecified; Y90.6 Blood alcohol level of 120-199 mg/100 ml; I10 Essential (primary) hypertension; M10.9 Gout, unspecified; N13.2 Hydronephrosis with renal and ureteral calculous obstruction; C61 Malignant neoplasm of prostate; R74.02 Elevation of levels of lactic acid dehydrogenase [LDH]; E78.5 Hyperlipidemia, unspecified; F17.210 Nicotine dependence, cigarettes, uncomplicated; Z23 Encounter for immunization
CPT/HCPCS: 29125; 36415; 70450; 71045; 72125; 73080; 73110; 73130; 74177; 80053; 80320; 81001; 82550; 83605; 83690; 83735; 83880; 84484; 85025; 85610; 85730; 87040; 87797; 90471; 93005; 93010; 96361; 96365; 96366; 96375; 96376; 99232; 99233; 99285; 99291; G0378; 90715; G0390; J0360; J0696; J1171; J2405; J2470; Q9967

== ENCOUNTER → 2025-04-29 09:52 | Outpatient (CLI) | payer MEDICARE, SELFPAY ==
[2025-03-23 11:52] VITALS: BMI 26.5
--- NOTE | 2025-04-29 09:53 | DI.CT.S_ITS ---
PROCEDURE: CT PEL WO CON INDICATIONS: Kidney stones TECHNIQUE: Noncontrast 3 mm axial sections acquired through the bony pelvis, with coronal and sagittal reformatting. COMPARISON: None. FINDINGS: Image quality: Excellent. Bones: No suspicious osseous lesion. Soft tissues: Nonobstructing right kidney stone measuring 0.7 cm. Distal left ureter obstructing calculus measuring 0.4 cm, (2/68), unchanged. No significant hydroureter. Normal appendix. No free fluid. Multiple clips in the pelvis. Enlarged lymph node in the right lower quadrant measuring 1.4 cm, (2/35). IMPRESSION: 1. Persistent obstructing calculus in the distal left ureter measuring 0.4 cm. No significant hydroureter. 2. Additional nonobstructing right kidney stone. 3. Enlarged lymph node in the right lower quadrant measuring 1.4 cm. Suspicious. Dictated by: Beau Bansal M.D. on 04/29/2025 at 15:12 Approved by: Beau Bansal M.D. on 04/29/2025 at 15:20
== END ==
LOC: CT 09:53
PROVIDERS: PCP Internal Medicine; Referring Provider Urology; Visit Provider Urology
DX: N20.2 Calculus of kidney with calculus of ureter (principal); R59.0 Localized enlarged lymph nodes
CPT/HCPCS: 72192

== ENCOUNTER → 2025-05-28 15:54 | Outpatient (CLI) | payer MEDICARE, SELFPAY ==
[2025-03-23 11:52] VITALS: BMI 26.5
[2025-05-28 16:22] LABS: Appearance Urine UA CLEAR; Bilirubin Urine UA NEGATIVE (NEGATIVE); Color Urine UA YELLOW; Glucose Urine UA NEGATIVE (Negative); Ketones Urine UA NEGATIVE (NEGATIVE); Leukocyte Esterase Urine UA NEGATIVE (NEGATIVE); Nitrite Urine UA NEGATIVE (Negative); Occult Blood Urine UA NEGATIVE (Negative); Protein Urine UA NEGATIVE (Negative); Specific Gravity Urine UA 1.010 (1.000-1.035); Urobilinogen Urine UA 0.2 E.U./dL (0.2); pH Urine UA 6.5 (4.5-8.0)
[2025-05-28 16:39] LABS: Culture Indicated Urine Cult Not Indicated
== END ==
PROVIDERS: PCP Internal Medicine; Referring Provider Urology; Visit Provider Urology
DX: R39.9 Unspecified symptoms and signs involving the genitourinary system (principal)
CPT/HCPCS: 81001

== ENCOUNTER 2025-05-31 07:44 | Day surgery (SDC) | payer MEDICARE, SELFPAY ==
[2025-03-23 11:52] VITALS: BMI 26.5
--- NOTE | 2025-05-31 | DI.US.S_ITS ---
PROCEDURE: US PERIPH VENOUS LOW EXTREM LT INDICATIONS: left lower extremity swelling TECHNIQUE: Real-time imaging, as well as color and pulse Doppler interrogation, were performed of the lower extremity deep veins from the inguinal ligament to the popliteal fossa, with documentation of the visualized calf veins. COMPARISON: None. FINDINGS: There is calf DVT involving the peroneal vein. There is no DVT above the calf. The common femoral, femoral, and popliteal are normally compressible, and free of intraluminal thrombus. Color and pulse Doppler demonstrate normal phasic intraluminal flow. There is normal augmentation response to distal compression maneuver. IMPRESSION: Acute DVT, peroneal vein in the calf. No DVT above the calf. Dictated by: Byron Giles M.D. on 05/31/2025 at 9:56 Approved by: Byron Giles M.D. on 05/31/2025 at 10:01
[2025-05-31 08:15] VITALS: BP 185/87; PULSE 68; RESP 16; TEMP 36.4; O2SAT 98
[2025-05-31 08:20] VITALS: BMI 26.1
[2025-05-31] MEDS: LACTATED RINGERS 1,000 ML 21 ML IV (08:32)
--- NOTE | 2025-05-31 08:46 | PM.PREOP ---
Pre-operative Note COVID-19 COVID-19 status: Not tested Interval Note History & Physical reviewed/Exam performed by Physician: Yes Changes to H&P: No
--- NOTE | 2025-05-31 10:57 | SUR.PREOP ---
Patient diagnosed with DVT to left lower extremity in pre-op; surgeon notified; surgery canceled. Patient to the ER to be evaluated and to r/o Pulmonary embolism with . Asymptomatic.
== END 2025-05-31 07:45 | disposition home or self-care (01) ==
PROVIDERS: PCP Internal Medicine; Referring Provider Urology; Visit Provider Urology
DX: N20.1 Calculus of ureter (principal); I82.402 Acute embolism and thrombosis of unspecified deep veins of left lower extremity; Z53.09 Procedure and treatment not carried out because of other contraindication; I10 Essential (primary) hypertension; C61 Malignant neoplasm of prostate; M10.9 Gout, unspecified; F17.210 Nicotine dependence, cigarettes, uncomplicated; I26.99 Other pulmonary embolism without acute cor pulmonale
CPT/HCPCS: 52356; 71275; 80053; 85025; 85610; 85730; 93005; 93971; 99283; 99284

== ENCOUNTER 2025-05-31 10:01 | Emergency (ER) | payer MEDICARE, SELFPAY ==
[2025-03-23 11:52] VITALS: BMI 26.5
[2025-05-31] VITALS (9 sets, daily range): BP systolic 167–206; BP diastolic 80–97; PULSE 57–68; RESP 13–25; TEMP 36.5–36.7; O2SAT 93–98; BMI 26.6
--- NOTE | 2025-05-31 10:12 | ED_ITS ---
HPI - General Adult General Chief complaint: Extremity Problem,Nontraumatic Stated complaint: Sent from OR, blood clot on left calf Time Seen by Provider: 05/31/25 10:10 History of Present Illness HPI narrative: Patient is a 74-year-old male with a past medical history of recurrent prostate cancer, hypertension, gout, alcohol abuse comes from preop for evaluation of possible pulmonary embolism. According to the patient he was in the preoperative area to have a stent placed for his left urolithiasis, however at that time they noticed left leg swelling, he did have a ultrasound which did show positive DVT therefore he was sent to the emergency department to rule out PE. However at time of evaluation patient is not complaining of any chest pain shortness of breath, not complaining of any other symptoms at this time. States that he is only here because they told him he needed to get a PE rule out. Related Data Home Medications ?Medication ?Instructions ?Recorded ?Confirmed atorvastatin 20 mg tablet (Lipitor) 20 mg PO BEDTIME # #0 07/12/12 05/24/25 allopurinol 100 mg tablet 300 mg PO QPM 04/14/1805/31 lisinopril 10 mg tablet 20 mg PO DAILY HTN 11/02/23 05/31/25 abiraterone 500 mg tablet 1,000 mg PO QAM 03/23/25 acetaminophen 325 mg tablet 650 mg PO Q6H PRN Pain (Sc deana 03/23/25 05/31/25 (Tylenol) Score 4-6) prednisone 5 mg tablet 5 mg PO DAILY 03/23/2505/31 venlafaxine 37.5 mg 37.5 mg PO DAILY 03/23/25 capsule,extended release 24 hr Previous Rx's ?Medication ?Instructions ?Recorded levofloxacin 500 mg tablet 500 mg PO DAILY #7 tabs apixaban 5 mg (74 tabs) tablets in See Rx Instructions PO .COMPLEX 05/31/25 a dose pack (Eliquis DVT-PE Treat #74 ea 30D Start) Allergies Allergy/AdvReac Type Severity Reaction Status Date / Time No Known Drug Allergies Allergy Verified 05/31/25 10:09 Review of Systems Review of Systems Narrative: General: PE rule out, Denies fever, chills, weight loss HEENT: Denies headache, eye drainage, eye irritation, head trauma, sore throat, voice change Cardiovascular: Denies any chest pain, palpitations, tachycardia Respiratory: Denies any shortness of breath, cough, wheeze, stridor GI/: Denies any abdominal pain, nausea, vomiting, diarrhea, bright red blood per rectum, melanotic stools, urinary frequency, urinary retention, dysuria, hematuria MSK: Denies any joint pain, muscle pains, swelling Skin: Denies any rashes, lesions, discoloration Neuro: Denies any headache, lightheadedness, dizziness, fainting, weakness Psych: Denies SI/HI Patient History Medical History Prostate cancer metastatic to intrapelvic lymph node History of malignant neoplasm of prostate Biochemically recurrent malignant neoplasm of prostate H/O ETOH abuse Elective surgery Gout GERD (gastroesophageal reflux disease) Elevated cholesterol HTN (hypertension) Surgical History Hx of sinus surgery History of shoulder surgery S/P excision of vocal cord nodule Hx of prostatectomy Family History Brother Cancer Gout Mother Stroke Social History marital status: number of children: 5 household members: spouse Previous occupational history: [employer] Smoking Status: Current every day smoker Tobacco: How many years used: 40 alcohol intake: current caffeine: Yes additional social history: The patient admits to smoking cigarettes but does not drink alcohol or use any drugs. alcohol intake frequency: 3 or more drinks per day Exam Narrative Exam Narrative: General: Cooperative, well-developed, not in acute distress HEENT: Normocephalic, atraumatic, PERRLA, normal sclera, eyelids normal Neck: Active full range of motion, atraumatic Chest: Normal to inspection, negative crepitus, no overlying erythema ecchymosis Respiratory: Normal respiratory effort, not in acute respiratory distress, clear to auscultation bilaterally negative cough, wheeze, tachypnea, rhonchi, rales Cardiology: Regular rate rhythm negative gallop, murmur, rubs GI/: No tenderness to palpation, soft, non rigid, normal to inspection, exam deferred MSK: Full active range of motion in all 4 extremities, atraumatic, no tenderness to palpation of any bony prominences Skin: No rashes or lesions noted Neuro: Alert awake oriented x3, moves all 4 extremities spontaneously, cranial nerves intact, able to answer all questions appropriately follows commands appropriately Psych: Cooperative, negative suicidal or homicidal ideations Initial Vital Signs Initial Vital Signs: Vital Signs Temperature 97.7 F 05/31/25 10:09 Pulse Rate 63 05/31/25 10:09 Respiratory Rate 20 05/31/25 10:09 Blood Pressure 205/97 H 05/31/25 10:09 Pulse Oximetry 97 05/31/25 10:09 Oxygen Delivery Method Room Air 05/31/25 10:09 Course Orders Ordered: ED Orders 05/31/25 10:16 CT angio chest PE protocol Stat CBC Auto Diff [Complete Blood Count AUTO DIFF] Stat EKG-12 Lead Stat 05/31/25 10:20 CMP [Comprehensive Metabolic Panel] Stat PT [Prothrombin Time INR] Stat PTT Partial Thromboplastin Samir Stat Vital Signs Vital signs: Vital Signs - 8 hr 05/31/25 10:09 05/31/25 10:30 05/31/25 10:37 Temperature 97.7 F Pulse Rate 63 Pulse Rate [Left Dorsalis Pedis] 68 Respiratory Rate 20 Blood Pressure 205/97 H 206/93 H Pulse Oximetry 97 Oxygen Delivery Method Room Air 05/31/25 10:37 05/31/25 11:00 05/31/25 11:01 Temperature Pulse Rate 62 65 Pulse Rate [Left Dorsalis Pedis] Respiratory Rate 25 H Blood Pressure 189/89 H Pulse Oximetry 98 96 Oxygen Delivery Method 05/31/25 11:01 Temperature Pulse Rate 65 Pulse Rate [Left Dorsalis Pedis] Respiratory Rate 23 Blood Pressure Pulse Oximetry 95 Oxygen Delivery Method Medical Decision Making Differential Diagnosis Differential Diagnosis: ACS, pneumonia, electrolyte abnormality, PE Lab Data 05/31/25 10:16 05/31/25 10:20 Labs: Lab Results 05/31/25 05/31/25 Range/Units 10:16 10:20 WBC 6.1 (4.5-11.0) X10^3/uL RBC 3.62 L (4.5-5.9) X10^6/uL Hgb 12.2 L (13.5-17.5) g/dL Hct 35.6 L (41-53) % MCV 98.4 (80-100) fL MCH 33.7 (26-34) PG MCHC 34.2 (30-36) % RDW 13.6 (11.6-14.8) % Plt Count 263 (150-400) X10^3/uL Neut % (Auto) 70.4 (50-75) % Lymph % (Auto) 20.5 L (25-40) % Graves % (Auto) 6.7 (3-14) % Eos % (Auto) 1.6 L (2-4) % Baso % (Auto) 0.8 (0-2) % Neut # (Auto) 4300 (0278-0302) /uL Lymph # (Auto) 1300 (2640-2282) /uL Graves # (Auto) 400 (0-900) /uL Eos # (Auto) 100 (0-450) /uL Baso # (Auto) 0 (0-100) /uL PT 10.9 (9.4-12.5) SECONDS INR 1.0 (0.9-1.3) APTT 21 L (25.1-36.5) SECONDS Sodium 141 (137-145) mmol/L Potassium 3.3 L (3.4-5.1) mmol/L Chloride 112 H (98-107) mmol/L Carbon Dioxide 26 (22-32) mmol/L BUN 10 (9-20) mg/dL Creatinine 0.56 L (0.66-1.25) mg/dL Estimated GFR > 60 (>60) mL/min BUN/Creatinine Ratio 17.9 (6-22) Glucose 110 H (70-99) mg/dL Calcium 9.4 (8.4-10.2) mg/dL Total Bilirubin 0.4 (0.2-1.3) mg/dL AST 24 (17-59) IU/L ALT 16 (<50) IU/L Alkaline Phosphatase 87 (38-126) U/L Total Protein 6.1 L (6.3-8.2) g/dL Albumin 3.4 L (3.5-5.0) g/dL Globulin 2.7 (1.7-4.1) g/dL Albumin/Globulin Ratio 1.3 (1.0-2.8) Imaging Data CTA PE: Radiologist's Impression: [address] [address] [address] Scan Report Signed Patient: Clay To MR#: [id number] : 1950 Acct:[id number] Age/Sex: 74 / M Date of Service: 05/31/25 Loc: ED Accession Number: [id number] Procedure: CT angio chest PE protocol Ordering Provider: Clay Nixon D.O. PROCEDURE: CT ANGIO CHEST PE PROTOCOL INDICATIONS: pt with DVT TECHNIQUE: After the administration of intravenous contrast, 2 mm thick sections acquired from the pulmonary apices to the posterior costophrenic angles. 3-dimensional maximum intensity projection (MIP) coronal and sagittal reformats were then acquired through the thorax. For radiation dose reduction, the following was used: automated exposure control, adjustment of mA and/or kV according to patient size. COMPARISON: [facility], CT, CT ABDOMEN PELVIS W CON, 03/22/2025, 23:28. FINDINGS: Image quality: Diagnostic. Pulmonary arteries: Small and defects in the right upper, middle, and lower lobe segmental arteries. Possible subsegmental filling defects at the left lower lobe. Main pulmonary artery measures up to 4 cm in diameter, which can be seen with pulmonary arterial hypertension. Lower Neck: No enlarged lymph nodes. Thyroid: No thyroid nodules which require sonographic follow up, per consensus guidelines. Axillae: No enlarged lymph nodes. Chest Wall: Unremarkable. Bones: Healed right-sided rib fractures. Small sclerotic lesions are seen in the posterior aspect of the T7 and T8 vertebral bodies Lungs and Pleura: Small consolidative opacity at the left lung base, possibly rounded atelectasis and not significantly changed when compared to the CT from 03/22/2025. Adjacent pleural thickening and pleural calcifications are present along the left hemidiaphragm. No pneumothorax or pleural effusions. Small peripheral right lower lobe 5 mm nodule (7/230). No consolidation or suspicious nodules. Heart: Heart is mildly enlarged. [id number]-[id number] coronary artery calcifications. No pericardial effusion. Thoracic Vessels: Ascending thoracic aorta measures 4.3 cm in diameter. Mediastinum and Es: No enlarged lymph nodes. Low-density lesions are seen in the posterior mediastinum adjacent to the lower thoracic vertebral bodies, possibly ectopic hematopoietic tissue. Esophagus: No wall thickening. No hiatal hernia. Upper Abdomen: Calcifications are again seen in the region of the pancreatic head. Left renal cysts. Visualized upper abdomen solid organs and bowel loops appear normal. IMPRESSION: 1. Multiple small segmental and subsegmental pulmonary emboli in the right lung and likely the left lower lobe. 2. Main pulmonary artery is enlarged. Increased right ventricular to left ventricular ratio. Findings may be secondary to right heart strain versus chronic pulmonary arterial hypertension. The heart is mildly enlarged. 3. Stable right atelectasis at the left lung base. Stable 5 mm right pulmonary nodule. No new or enlarging pulmonary nodule. 4. Small sclerotic lesions in the T8 and T9 vertebral bodies are of uncertain etiology although osseous metastatic disease is not excluded in this patient with history of prostate cancer. Correlation with prior imaging of the chest is unavailable at the time of this dictation. Recommend correlation with PSA levels. ECG Data Interpretation: EKG interpreted by ED physician sinus 70 beats per minute QTC 421, CA QRS interval within normal limits, occasional PVC noted nonspecific ST changes no STEMI MDM Narrative Medical decision making narrative: Patient is a 74-year-old male with a history of urolithiasis, alcohol abuse, hypertension, hyperlipidemia, presenting from preop for DVT and PE rule out. According to the patient he was at the OR pre check in and noted that he had some left lower extremity swelling they did have patient have an ultrasound which did show a DVT to the peroneal vein in the left calf. He was sent here to rule out PE. Patient denies any other symptoms such as chest pain shortness breath or any other symptoms at this time, he states he is only here because he was instructed to find out if he has a a pulmonary embolism. Patient lab work unremarkable, EKG nonischemic in nature, patient did have CTA PE performed did show bilateral PE, offer patient admission to the hospital however he states that he would prefer to follow up in an outpatient setting. Patient without any chest pain shortness of breath not requiring any supplemental oxygen, Patient with a Passy score of 85, class 2 low risk, patient not requiring any supplemental oxygen, therefore will start patient on Eliquis and instructed to follow up with primary care as well as urologist in outpatient setting Discharge Plan Departure Patient Disposition: Home Clinical Impression: Pulmonary embolism Activity Restrictions/Additional Instructions: Please follow up with the primary care and Cardiology in outpatient setting Please go to the following link to get a free/discounted course of eliquis: [email or web address] Please read the discharge instructions sheet carefully and bring all papers to all doctor follow-up visits, as it may contain information that your doctor may want to see. Disease processes change and evolve, if your symptoms worsen or if you develop any new symptoms that are concerning to you please return for evaluation. Your evaluation today does not show any evidence of any life- threatening/serious illnesses requiring admission to the hospital or surgery. Please follow-up with your doctor for re-evaluation in approximately 1 day. Seek immediate medical attention for any worrisome symptoms. *If you do not have a primary care provider please contact the [facility] Resource line at [phone]. They will ask some questions about your medical history and help get you set up with a doctor in the community. Prescriptions: New Eliquis DVT-PE Treat 30D Start 5 mg (74 tabs) tablets,dose pack See Rx Instructions .ROUTE .COMPLEX Qty: 74 0RF Rx Instructions: orally per package directions No Action atorvastatin [Lipitor] 20 MG tablet 20 mg PO BEDTIME Qty: 0 Patient Comments: pt unsure if it is this or another statin abiraterone 500 mg tablet 1,000 mg PO QAM venlafaxine 37.5 mg capsule,extended release 24hr 37.5 mg PO DAILY prednisone 5 mg tablet 5 mg PO DAILY acetaminophen [Tylenol] 325 mg Tablet 650 mg PO Q6H PRN (Reason: Pain (Scale Score 4-6)) allopurinol 100 mg Tablet 300 mg PO QPM lisinopril 10 mg tablet 20 mg PO DAILY levofloxacin 500 mg tablet 500 mg PO DAILY Qty: 7 0RF Referrals: Janet Velasquez MD [Physician, Cardiology] Cristina Vanegas MD [Primary Care Provider, Internal Medicine] Stand Alone Forms: Patient Portal/API
--- NOTE | 2025-05-31 10:16 | DI.CT.S_ITS ---
PROCEDURE: CT ANGIO CHEST PE PROTOCOL INDICATIONS: pt with DVT TECHNIQUE: After the administration of intravenous contrast, 2 mm thick sections acquired from the pulmonary apices to the posterior costophrenic angles. 3-dimensional maximum intensity projection (MIP) coronal and sagittal reformats were then acquired through the thorax. For radiation dose reduction, the following was used: automated exposure control, adjustment of mA and/or kV according to patient size. COMPARISON: [facility], CT, CT ABDOMEN PELVIS W CON, 03/22/2025, 23:28. FINDINGS: Image quality: Diagnostic. Pulmonary arteries: Small and defects in the right upper, middle, and lower lobe segmental arteries. Possible subsegmental filling defects at the left lower lobe. Main pulmonary artery measures up to 4 cm in diameter, which can be seen with pulmonary arterial hypertension. Lower Neck: No enlarged lymph nodes. Thyroid: No thyroid nodules which require sonographic follow up, per consensus guidelines. Axillae: No enlarged lymph nodes. Chest Wall: Unremarkable. Bones: Healed right-sided rib fractures. Small sclerotic lesions are seen in the posterior aspect of the T7 and T8 vertebral bodies Lungs and Pleura: Small consolidative opacity at the left lung base, possibly rounded atelectasis and not significantly changed when compared to the CT from 03/22/2025. Adjacent pleural thickening and pleural calcifications are present along the left hemidiaphragm. No pneumothorax or pleural effusions. Small peripheral right lower lobe 5 mm nodule (7/230). No consolidation or suspicious nodules. Heart: Heart is mildly enlarged. Gpye-du-xufqoqrb coronary artery calcifications. No pericardial effusion. Thoracic Vessels: Ascending thoracic aorta measures 4.3 cm in diameter. Mediastinum and Es: No enlarged lymph nodes. Low-density lesions are seen in the posterior mediastinum adjacent to the lower thoracic vertebral bodies, possibly ectopic hematopoietic tissue. Esophagus: No wall thickening. No hiatal hernia. Upper Abdomen: Calcifications are again seen in the region of the pancreatic head. Left renal cysts. Visualized upper abdomen solid organs and bowel loops appear normal. IMPRESSION: 1. Multiple small segmental and subsegmental pulmonary emboli in the right lung and likely the left lower lobe. 2. Main pulmonary artery is enlarged. Increased right ventricular to left ventricular ratio. Findings may be secondary to right heart strain versus chronic pulmonary arterial hypertension. The heart is mildly enlarged. 3. Stable right atelectasis at the left lung base. Stable 5 mm right pulmonary nodule. No new or enlarging pulmonary nodule. 4. Small sclerotic lesions in the T8 and T9 vertebral bodies are of uncertain etiology although osseous metastatic disease is not excluded in this patient with history of prostate cancer. Correlation with prior imaging of the chest is unavailable at the time of this dictation. Recommend correlation with PSA levels. Findings were discussed with the referring provider, Dr. Nixon, by telephone on 05/31/2025 at 12:25 PM. Approved by: Dg Frye M.D. on 05/31/2025 at 12:27
[2025-05-31 10:30] LABS: Add Manual Diff / Slide Review NO; Hematocrit 35.6 % (41-53); Hemoglobin 12.2 g/dL (13.5-17.5); Lymphocytes Absolute Auto 1300 /uL (1100-4500); Mean Corpuscular HGB Conc 34.2 % (30-36); Mean Corpuscular Hemoglobin 33.7 PG (26-34); Mean Corpuscular Volume 98.4 fL (80-100); Platelet Count 263 X10^3/uL (150-400)
--- NOTE | 2025-05-31 10:32 | EKG_ITS ---
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
[2025-05-31 10:37] LABS: INR 1.0 (0.9-1.3); Prothrombin Time 10.9 SECONDS (9.4-12.5)
[2025-05-31 10:40] LABS: PTT Partial Thromboplastin Tim 21 SECONDS (25.1-36.5)
[2025-05-31 10:53] LABS: Alanine Aminotransferase 16 IU/L (<50); Albumin 3.4 g/dL (3.5-5.0); Albumin Globulin Ratio 1.3 (1.0-2.8); Alkaline Phosphatase 87 U/L (38-126); Blood Urea Nitrogen 10 mg/dL (9-20); Calcium 9.4 mg/dL (8.4-10.2); Carbon Dioxide 26 mmol/L (22-32); Chloride 112 mmol/L (98-107); Estimated Glomerular Filt Rate > 60 mL/min (>60); Globulin 2.7 g/dL (1.7-4.1); Glucose 110 mg/dL (70-99); HEMOLYSIS < 15 (0-50); Potassium 3.3 mmol/L (3.4-5.1); Sodium 141 mmol/L (137-145); Total Protein 6.1 g/dL (6.3-8.2)
[2025-05-31] MEDS: APIXABAN 5 MG TABLET 10 MG PO (12:44)
== END 2025-05-31 12:56 | disposition home or self-care (01) ==
PROVIDERS: Emergency Provider Student in an Organized Health Care Education/Training Program; PCP Internal Medicine
DX: I26.99 Other pulmonary embolism without acute cor pulmonale (principal)
CPT/HCPCS: 71275; 80053; 85025; 85610; 85730; 93005; 99283

== ENCOUNTER → 2025-06-12 16:06 | Outpatient (CLI) | payer MEDICARE, SELFPAY ==
[2025-03-23 11:52] VITALS: BMI 26.5
--- NOTE | 2025-06-12 16:07 | DI.ECHO.S_ITS ---
[facility]+ [facility] : : [address] : : [place] : : [address] : : Phone: [phone] Echocardiogram Report + + :Name: JEFF ASTORGA Study Date: 06/12/2025 Height: 77 in : :Hospital ReadingLocation: Weight: 220 lb : : Gender: Male BSA: 2.3 m2 : :: 1950 Age: 74 yrs BP: 174/100 mmHg: :Reason For Study: PULMONARY EMBOLISM : :Ordering Physician: [place], : :KARLOS WYATT Performed By: Vickey Gibbons : :Referring: KARLOS MCMANUS : + + Interpretation Summary Technically difficult study due to poor acoustic windows. 1) Normal left ventricular thickness, size, wall motion, and systolic function (EF 55-60%). 2) Normal right ventricular size and function. 3) No significant valvular abnormalities. 4) No prior Echo available for comparison. Procedure: A two-dimensional transthoracic echocardiogram with color flow and Doppler was performed. A contrast injection of Definity was performed to improve assessment of LV function. The study quality was technically limited. There is no prior echocardiogram noted for this patient. The patient was in normal sinus rhythm during the exam. Left Ventricle: The left ventricle is normal in size. There is normal left ventricular wall thickness. POOR A2C VISUALIZATION. There is no ventricular septal defect visualized. The ejection fraction is estimated to be 55-60%. Left ventricular systolic function appears normal without focal wall motion abnormalities. Right Ventricle: The right ventricle is normal in size and function. Atria: The left atrial size is normal. Right atrial size is normal. The interatrial septum is not well visualized. Mitral Valve: There is mild mitral annular calcification. The mitral valve leaflets appear normal. There is no evidence of stenosis, fluttering, or prolapse. There is no mitral regurgitation noted. Aortic Valve: The aortic valve is trileaflet. The aortic valve opens well. The aortic valve is mildly calcified. There is no aortic valve stenosis. No aortic regurgitation is present. Tricuspid Valve: The tricuspid valve is not well visualized. There is trace tricuspid regurgitation. Pulmonary artery pressures cannot be estimated because of the lack of a measurable TR jet velocity. Pulmonic Valve: The pulmonic valve is not well visualized. There is trace pulmonic regurgitation. Great Vessels: The aortic root is mildly dilated. The ascending aorta is mildly enlarged. The pulmonary is not well visualized. The inferior vena cava was not visualized. Pericardium/ Pleura There is no pericardial effusion. MMode/2D Measurements & Calculations LVIDd: 4.9 cm LVOT diam: 2.6 cm LVIDs: 3.7 cm Ao root diam: 3.7 cm FS: 24.0 % asc Aorta Diam: 4.3 cm EPSS: 0.94 cm IVSd: 1.2 cm LVPWd: 1.3 cm LV zhao. diameter/BSA (cm/m^2): 2.1 LV sys. diameter/BSA (cm/m^2): 1.6 LA A2 area: 18.2 cm2 RA long axis: 4.8 cm LA A4 area: 20.4 cm2 RA area: 15.6 cm2 LA length (vol): 6.1 cm RA vol: 43.4 ml LA vol: 51.8 ml RA : 18.6 ml/m2 LA vol index: 22.2 ml/m2 RVD1 (basal): 3.6 cm RVD2 (mid): 3.4 cm TAPSE: 2.0 cm Doppler Measurements & Calculations Ao V2 max: 128.6 cm/sec LVOT Max Diego: 111.5 cm/sec Ao V2 mean: 93.1 cm/sec LV V1 max P.0 mmHg Ao max P.6 mmHg LV V1 VTI: 24.0 cm Ao mean P.7 mmHg ASHWIN(I,D): 4.7 cm2 Ao V2 VTI: 26.2 cm ASHWIN(V,D): 4.5 cm2 sev ratio: 0.91 ASHWIN indexed to BSA (cm^2/m^2): 2.0 MV E max diego: 59.1 cm/sec TR max diego: 279.3 cm/sec MV A max diego: 67.4 cm/sec TR max P.2 mmHg MV E/A: 0.88 PA V2 max: 132.5 cm/sec Med Peak E' Diego: 8.2 cm/sec PA V2 mean: 95.8 cm/sec E/E' med: 7.2 PA mean P.0 mmHg Lat Peak E' Diego: 6.3 cm/sec PA pr(Accel): 61.9 mmHg E/E' lat: 9.4 E/e' average: 8.3 MV dec time: 0.26 sec SV(LVOT): 124.3 ml Reading Physician:10:37 AM
== END ==
LOC: ECHO 16:07
PROVIDERS: Referring Provider Family Medicine; Visit Provider Family Medicine
DX: I26.99 Other pulmonary embolism without acute cor pulmonale (principal)
CPT/HCPCS: C8929; Q9957

== ENCOUNTER 2025-06-24 11:20 | Emergency (ER) | payer MEDICARE, SELFPAY ==
[2025-03-23 11:52] VITALS: BMI 26.5
[2025-06-24 11:23] VITALS: BP 163/86; PULSE 95; RESP 16; TEMP 37; O2SAT 100; BMI 24.9
[2025-06-24 11:50] LABS: Add Manual Diff / Slide Review NO; Hematocrit 40.9 % (41-53); Hemoglobin 14.0 g/dL (13.5-17.5); Lymphocytes Absolute Auto 2400 /uL (1100-4500); Mean Corpuscular HGB Conc 34.3 % (30-36); Mean Corpuscular Hemoglobin 33.3 PG (26-34); Mean Corpuscular Volume 97.2 fL (80-100); Platelet Count 218 X10^3/uL (150-400)
[2025-06-24 12:04] LABS: Alanine Aminotransferase 40 IU/L (<50); Albumin 4.1 g/dL (3.5-5.0); Albumin Globulin Ratio 1.5 (1.0-2.8); Alkaline Phosphatase 68 U/L (38-126); Blood Urea Nitrogen 14 mg/dL (9-20); Calcium 10.0 mg/dL (8.4-10.2); Carbon Dioxide 24 mmol/L (22-32); Chloride 101 mmol/L (98-107); Estimated Glomerular Filt Rate > 60 mL/min (>60); Globulin 2.8 g/dL (1.7-4.1); Glucose 206 mg/dL (70-99); HEMOLYSIS < 15 (0-50); Lipase 885 U/L (23-300); Potassium 2.9 mmol/L (3.4-5.1); Sodium 134 mmol/L (137-145); Total Protein 6.9 g/dL (6.3-8.2)
[2025-06-24 12:35] VITALS: BP 136/80; PULSE 64; O2SAT 97
--- NOTE | 2025-06-24 12:42 | EKG_ITS ---
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
--- NOTE | 2025-06-24 12:44 | DI.CT.S_ITS ---
PROCEDURE: CT ABDOMEN PELVIS W CON INDICATIONS: ABD PAIN TECHNIQUE: After the administration of intravenous contrast, axial sections acquired from the lung bases to the pubic symphysis. Coronal and sagittal reformats were performed. For radiation dose reduction, the following was used: automated exposure control, adjustment of mA and/or kV according to patient size. COMPARISON: [facility], CT, CT ABDOMEN PELVIS W CON, 03/22/2025, 23:28. FINDINGS: Image quality: Diagnostic. Lower Chest: No significant findings. ABDOMEN: Liver: No solid mass. Gallbladder: No radiopaque gallstones or wall thickening. Biliary ducts: No significant biliary ductal dilatation. Pancreas: Prominence of pancreatic duct near pancreatic head region is seen now measures up to 1 cm in diameter. Coarse calcifications are noted in pancreatic head region. No discrete pancreatic lesion. Spleen: Size is within normal limits. Adrenal Glands: No adrenal nodules. Kidneys and Ureters: There is crgq-ao-vkhcneks right-sided hydronephrosis with at least partially obstructing stone seen in right renal pelvis measures 7 x 6 mm in size and 867 Hounsfield unit in density. No left-sided obstructing stones or hydronephrosis. No hydroureter. No solid mass. No complex renal cystic lesion which requires follow up. Stomach and Bowel: There is no bowel obstruction or abnormal bowel wall thickening. No mesenteric fat stranding. Gtnz-ri-rjjxccwm fecal stasis in the colon is seen. No abscess collection. Peritoneum: No abnormal intraperitoneal fluid. No free air. Ventral Wall: No significant ventral hernia. Abdominal Nodes: No retroperitoneal or mesenteric adenopathy by size criteria. Vessels: Aorta and inferior vena cava are normal in size. PELVIS: Pelvic Organs: Prior prostatectomy with surgical clips seen. Bladder: No bladder wall thickening, accounting for underdistention. Pelvic Nodes: No enlarged lymph nodes. Miscellaneous: No inguinal hernias are seen. Bones: No aggressive osseous abnormality. Spondylitic changes throughout lower thoracic and lumbar spine is seen. IMPRESSION: 1. At least intermittently obstructing stone in right renal pelvis measures 7 x 6 mm in size and 867 Hounsfield unit in density. Kcmy-bs-ljcfiysb right-sided hydronephrosis. No hydroureter. No obstructing left renal stone or hydronephrosis. Normal appearing urinary bladder. 2. No bowel obstruction or abnormal bowel wall thickening. No abscess collection. No free fluid or free air. Ccvh-tt-jawwbgds constipation. 3. Chronic appearing pancreatic ductal dilatation and coarse calcification near pancreatic head region unchanged or minimally increased compared to prior study likely represent prior episodes of pancreatitis. 4. Other chronic findings are unchanged from prior study. Dictated by: Familia Ford M.D. on 06/24/2025 at 13:03 Approved by: Familia Ford M.D. on 06/24/2025 at 13:09
--- NOTE | 2025-06-24 12:49 | ED.ABDPAIN ---
HPI - Abdominal Pain General Chief Complaint: Abdominal Pain Stated Complaint: blood in urine Time Seen by Provider: 06/24/25 12:04 Mode of arrival: Ambulatory History of Present Illness HPI narrative: 74-year-old gentleman past medical history PE on Eliquis diagnosed on 05/31/2025, recurrent prostate cancer, hypertension, gout, alcohol abuse, presents with hematuria and suprapubic discomfort yesterday and today. Patient denies fever, chills, nausea, vomiting, diarrhea, constipation, bloody stools, chest pain, shortness of breath. Other than what is stated 14 point review of system is negative. Related Data Home Medications ?Medication ?Instructions ?Recorded ?Confirmed atorvastatin 20 mg tablet (Lipitor) 20 mg PO BEDTIME ##0 07/12/12 05/24/25 allopurinol 100 mg tablet 300 mg PO QPM 04/14/18 05/31/25 lisinopril 10 mg tablet 20 mg PO DAILY HTN 11/02/23 05/31/25 abiraterone 500 mg tablet 1,000 mg PO QAM 03/23/25 05/31/25 acetaminophen 325 mg tablet 650 mg PO Q6H PRN Pain (Scale 03/23/25 05/31/25 (Tylenol) Score 4-6) prednisone 5 mg tablet 5 mg PO DAILY 03/23/25 05/31/25 venlafaxine 37.5 mg 37.5 mg PO DAILY 03/23/25 05/24/25 capsule,extended release 24 hr Previous Rx's ?Medication ?Instructions ?Recorded levofloxacin 500 mg tablet 500 mg PO DAILY #7 tabs 05/27/25 apixaban 5 mg (74 tabs) tablets in See Rx Instructions PO .COMPLEX 05/31/25 a dose pack (Eliquis DVT-PE Treat #74 ea 30D Start) hydrocodone 5 mg-acetaminophen 325 1 tab PO Q4-6H PRN pain #20 tabs 06/24/25 mg tablet tamsulosin 0.4 mg capsule (Flomax) 0.4 mg PO DAILY #30 caps 06/24/25 Allergies Allergy/AdvReac Type Severity Reaction Status Date / Time No Known Drug Allergies Allergy Verified 06/24/25 11:24 Review of Systems Review of Systems ROS Unobtainable: All systems reviewed & are unremarkable except as noted in HPI and below Patient History Medical History Prostate cancer metastatic to intrapelvic lymph node History of malignant neoplasm of prostate Biochemically recurrent malignant neoplasm of prostate H/O ETOH abuse Elective surgery Gout GERD (gastroesophageal reflux disease) Elevated cholesterol HTN (hypertension) Surgical History Hx of sinus surgery History of shoulder surgery S/P excision of vocal cord nodule Hx of prostatectomy Family History Brother Cancer Gout Mother Stroke Social History marital status: number of children: 5 household members: spouse Previous occupational history: [employer] retired [employer] Smoking Status: Current every day smoker Tobacco: How many years used: 40 alcohol intake: current caffeine: Yes additional social history: The patient admits to smoking cigarettes but does not drink alcohol or use any drugs. Smoking Status: Current every day smoker alcohol intake frequency: 3 or more drinks per day Exam Narrative Exam Narrative: GENERAL: [74] year old patient appears stated age. Well-developed patient, in mild distress. HEAD: Atraumatic. Normocephalic. EYES: Pupils equal round and reactive. Extraocular motions intact. No scleral icterus. No injection or drainage. ENT: Nose without bleeding, purulent drainage. Throat without erythema, tonsillar hypertrophy or exudate. Airway patent. NECK: Trachea midline. Non tender CARDIOVASCULAR: Regular rate and rhythm without murmurs, gallops, or rubs. RESPIRATORY: Clear to auscultation. Breath sounds equal bilaterally. No wheezes, rales, or rhonchi. GASTROINTESTINAL: Abdomen soft, non-tender, nondistended. EXTREMITIES: No edema or joint tenderness. BACK: Nontender without deformity or crepitance. No flank tenderness. NEURO: AOx3. SKIN: No rash or erythema of visible areas Initial Vital Signs Initial Vital Signs: Vital Signs Temperature 98.6 F 06/24/25 11:23 Pulse Rate 95 H 06/24/25 11:23 Respiratory Rate 16 06/24/25 11:23 Blood Pressure 163/86 H 06/24/25 11:23 Pulse Oximetry 100 06/24/25 11:23 Oxygen Delivery Method Room Air 06/24/25 11:23 Course Orders Ordered: ED Orders 06/24/25 11:31 EKG-12 Lead Stat 06/24/25 11:38 Complete Blood Count AUTO DIFF Stat Comprehensive Metabolic Panel Stat Lipase Stat 06/24/25 12:44 CT abdomen pelvis w con Stat Lactated Ringer's (Lactated Ringers) 1,000 mls @ 1,000 mls/hr IV BOLUS ONE Stop: 06/24/25 13:43 Ondansetron HCl (Ondansetron 4 Mg/2 Ml Inj) 4 mg IV NOW PRN PRN Reason: Nausea And Vomiting Ondansetron HCl (Ondansetron 4 Mg Odt) 4 mg PO NOW PRN PRN Reason: Nausea And Vomiting Vital Signs Vital signs: Vital Signs - 8 hr 06/24/25 11:23 Temperature 98.6 F Pulse Rate 95 H Respiratory Rate 16 Blood Pressure 163/86 H Pulse Oximetry 100 Oxygen Delivery Method Room Air MDM - Abdominal Pain Lab Data 06/24/25 11:38 06/24/25 11:38 Labs: Lab Results 06/24/25 Range/Units 11:38 WBC 7.9 (4.5-11.0) X10^3/uL RBC 4.21 L (4.5-5.9) X10^6/uL Hgb 14.0 (13.5-17.5) g/dL Hct 40.9 L (41-53) % MCV 97.2 (80-100) fL MCH 33.3 (26-34) PG MCHC 34.3 (30-36) % RDW 13.4 (11.6-14.8) % Plt Count 218 (150-400) X10^3/uL Neut % (Auto) 62.2 (50-75) % Lymph % (Auto) 30.4 (25-40) % Lucas % (Auto) 5.3 (3-14) % Eos % (Auto) 1.6 L (2-4) % Baso % (Auto) 0.5 (0-2) % Neut # (Auto) 4900 (0197-7775) /uL Lymph # (Auto) 2400 (1135-7653) /uL Lucas # (Auto) 400 (0-900) /uL Eos # (Auto) 100 (0-450) /uL Baso # (Auto) 0 (0-100) /uL Sodium 134 L (137-145) mmol/L Potassium 2.9 L (3.4-5.1) mmol/L Chloride 101 (98-107) mmol/L Carbon Dioxide 24 (22-32) mmol/L BUN 14 (9-20) mg/dL Creatinine 0.65 L (0.66-1.25) mg/dL Estimated GFR > 60 (>60) mL/min BUN/Creatinine Ratio 21.5 (6-22) Glucose 206 H (70-99) mg/dL Calcium 10.0 (8.4-10.2) mg/dL Total Bilirubin 0.5 (0.2-1.3) mg/dL AST 38 (17-59) IU/L ALT 40 (<50) IU/L Alkaline Phosphatase 68 (38-126) U/L Total Protein 6.9 (6.3-8.2) g/dL Albumin 4.1 (3.5-5.0) g/dL Globulin 2.8 (1.7-4.1) g/dL Albumin/Globulin Ratio 1.5 (1.0-2.8) Lipase 885 H (23-300) U/L Imaging Data CT scan - abdomen/pelvis: Radiologist's Impression: [place] [id number] CT Scan Report Signed Patient: Clay To MR#: [id number] : 1950 Acct:[id number] Age/Sex: 74 / M Date of Service: 06/24/25 Loc: ED Accession Number: [id number] Procedure: CT abdomen pelvis w con Ordering Provider: Zac Russ D.O. PROCEDURE: CT ABDOMEN PELVIS W CON INDICATIONS: ABD PAIN TECHNIQUE: After the administration of intravenous contrast, axial sections acquired from the lung bases to the pubic symphysis. Coronal and sagittal reformats were performed. For radiation dose reduction, the following was used: automated exposure control, adjustment of mA and/or kV according to patient size. COMPARISON: [facility], CT, CT ABDOMEN PELVIS W CON, 03/22/2025, 23:28. FINDINGS: Image quality: Diagnostic. Lower Chest: No significant findings. ABDOMEN: Liver: No solid mass. Gallbladder: No radiopaque gallstones or wall thickening. Biliary ducts: No significant biliary ductal dilatation. Pancreas: Prominence of pancreatic duct near pancreatic head region is seen now measures up to 1 cm in diameter. Coarse calcifications are noted in pancreatic head region. No discrete pancreatic lesion. Spleen: Size is within normal limits. Adrenal Glands: No adrenal nodules. Kidneys and Ureters: There is hwts-xx-rnorxpom right-sided hydronephrosis with at least partially obstructing stone seen in right renal pelvis measures 7 x 6 mm in size and 867 Hounsfield unit in density. No left-sided obstructing stones or hydronephrosis. No hydroureter. No solid mass. No complex renal cystic lesion which requires follow up. Stomach and Bowel: There is no bowel obstruction or abnormal bowel wall thickening. No mesenteric fat stranding. Zlau-iw-mvnmlrby fecal stasis in the colon is seen. No abscess collection. Peritoneum: No abnormal intraperitoneal fluid. No free air. Ventral Wall: No significant ventral hernia. Abdominal Nodes: No retroperitoneal or mesenteric adenopathy by size criteria. Vessels: Aorta and inferior vena cava are normal in size. PELVIS: Pelvic Organs: Prior prostatectomy with surgical clips seen. Bladder: No bladder wall thickening, accounting for underdistention. Pelvic Nodes: No enlarged lymph nodes. Miscellaneous: No inguinal hernias are seen. Bones: No aggressive osseous abnormality. Spondylitic changes throughout lower thoracic and lumbar spine is seen. IMPRESSION: 1. At least intermittently obstructing stone in right renal pelvis measures 7 x 6 mm in size and 867 Hounsfield unit in density. Hevc-xo-byclrrfr right-sided hydronephrosis. No hydroureter. No obstructing left renal stone or hydronephrosis. Normal appearing urinary bladder. 2. No bowel obstruction or abnormal bowel wall thickening. No abscess collection. No free fluid or free air. Lmnv-mk-zcrycqls constipation. 3. Chronic appearing pancreatic ductal dilatation and coarse calcification near pancreatic head region unchanged or minimally increased compared to prior study likely represent prior episodes of pancreatitis. 4. Other chronic findings are unchanged from prior study. Dictated by: Familia Ford M.D. on 06/24/2025 at 13:03 Approved by: Familia Ford M.D. on 06/24/2025 at 13:09 ECG Data Interpretation: NSR HR 72 GA 148 QRS [address]-t wave change Unchanged from 05/31/25 MDM Narrative Medical decision making narrative: All lab work, vital signs, nurse triage note, medication list, previous ER visits, and all imaging studies reviewed. Hemoglobin 14 normal white count platelet 218 potassium 2.9 magnesium 1.6 glucose 206 BUN 14 creatinine 0.65 lipase 885 urine greater than [address] abdomen and pelvis intermittently obstructing stone in the right renal pelvis measuring 7 x6 mm stone. Hjwi-hi-kypgbcii right-sided hydronephrosis no hydroureter no obstructing left renal stone or hydronephrosis normal appearing urinary bladder. No bowel obstruction or abnormal bowel wall thickening no abscess collection no free fluid or free air. Glpw-ec-ulsltnui constipation. Chronic appearing pancreatic ductal dilatation and coarse calcification near pancreatic head region unchanged or minimally increased compared to prior study likely representing prior episodes of pancreatitis. Patient given fluids Flomax and a strainer. Patient discharged on Flomax strainer and [place] to go home and to follow up with Urology. Differential diagnosis Kidney stone, kidney infection, pancreatitis, diverticulitis, Eliquis associated hematuria, constipation. Discharge Plan Departure Patient Disposition: Home Clinical Impression: Kidney stone Instructions: DI for Kidney Stones Activity Restrictions/Additional Instructions: Return with new or worsening symptoms. Keep hydrated with ice water and zachariah. Follow up with Urology call office for appointment with . Prescriptions: New tamsulosin [Flomax] 0.4 mg capsule 0.4 mg PO DAILY Qty: 30 0RF hydrocodone-acetaminophen 5-325 mg tablet 1 tab PO Q4-6H PRN (Reason: pain) Qty: 20 0RF No Action atorvastatin [Lipitor] 20 MG tablet 20 mg PO BEDTIME Qty: 0 Patient Comments: pt unsure if it is this or another statin abiraterone 500 mg tablet 1,000 mg PO QAM venlafaxine 37.5 mg capsule,extended release 24hr 37.5 mg PO DAILY prednisone 5 mg tablet 5 mg PO DAILY acetaminophen [Tylenol] 325 mg Tablet 650 mg PO Q6H PRN (Reason: Pain (Scale Score 4-6)) Eliquis DVT-PE Treat 30D Start 5 mg (74 tabs) tablets,dose pack See Rx Instructions .ROUTE .COMPLEX Qty: 74 0RF Rx Instructions: orally per package directions allopurinol 100 mg Tablet 300 mg PO QPM lisinopril 10 mg tablet 20 mg PO DAILY levofloxacin 500 mg tablet 500 mg PO DAILY Qty: 7 0RF Stand Alone Forms: Patient Portal/API
[2025-06-24 12:57] VITALS: BP 137/76; PULSE 66; RESP 23; O2SAT 98
[2025-06-24 13:00] VITALS: BP 146/76; PULSE 68; RESP 16; O2SAT 99
[2025-06-24] MEDS: POTASSIUM CHLORIDE 20 MEQ/15 ML UDC 40 MEQ PO (13:04)
[2025-06-24] MEDS: LACTATED RINGERS 1,000 ML 1000 ML IV (13:05)
[2025-06-24 13:10] LABS: Magnesium 1.6 mg/dL (1.6-2.3)
[2025-06-24 13:27] LABS: Culture Indicated Urine Cult Not Indicated
[2025-06-24 13:30] VITALS: BP 145/79; PULSE 71; RESP 24; O2SAT 99
[2025-06-24 13:40] VITALS: BP 154/77; PULSE 67; RESP 16; O2SAT 99
[2025-06-24] MEDS: TAMSULOSIN 0.4 MG CAPSULE PO (13:45)
== END 2025-06-24 14:00 | disposition home or self-care (01) ==
PROVIDERS: Emergency Provider Family Medicine
DX: N20.0 Calculus of kidney (principal); R31.9 Hematuria, unspecified; F17.210 Nicotine dependence, cigarettes, uncomplicated
CPT/HCPCS: 36415; 74177; 80053; 81015; 83690; 83735; 85025; 93005; 99284; Q9967

== ENCOUNTER → 2025-08-13 11:50 | Outpatient (CLI) | payer MEDICARE, SELFPAY ==
[2025-03-23 11:52] VITALS: BMI 26.5
--- NOTE | 2025-08-13 11:51 | DI.RAD.S_ITS ---
PROCEDURE: XR KUB INDICATIONS: Kidney stones TECHNIQUE: One view of the abdomen acquired. COMPARISON: None. FINDINGS: Surgical changes and devices: Multiple pelvic clips. Bowel: Bowel gas pattern is normal. Moderate colonic stool. Soft tissues: No suspicious abdominal calcifications. Visualized solid organ contours appear normal in size. Bones: No suspicious bony lesions. IMPRESSION: Moderate stool without obstruction. No definitive calcification overlying the expected course of the renal shadows. Dictated by: Tawana Love M.D. on 08/13/2025 at 13:26 Approved by: Tawana Love M.D. on 08/13/2025 at 13:28
[2025-08-13 13:19] LABS: Bilirubin Urine UA 1+ (NEGATIVE); Glucose Urine UA NEGATIVE (Negative); Ketones Urine UA NEGATIVE (NEGATIVE); Leukocyte Esterase Urine UA NEGATIVE (NEGATIVE); Nitrite Urine UA NEGATIVE (Negative); Occult Blood Urine UA 3+ (Negative); Protein Urine UA 3+ (Negative); Specific Gravity Urine UA 1.025 (1.000-1.035); Urobilinogen Urine UA 1.0 E.U./dL (0.2); pH Urine UA 6.0 (4.5-8.0)
[2025-08-13 13:26] LABS: Appearance Urine UA TURBID; Color Urine UA RED
[2025-08-13 13:27] LABS: Ictotest Urine Negative (Negative)
[2025-08-13 13:29] LABS: Culture Indicated Urine Specimen Cultured
== END ==
PROVIDERS: PCP Family Medicine; Referring Provider Urology; Visit Provider Urology
DX: N20.2 Calculus of kidney with calculus of ureter (principal); R31.9 Hematuria, unspecified
CPT/HCPCS: 74018; 81001; 87086

== ENCOUNTER → 2025-08-14 09:52 | Outpatient (CLI) | payer MEDICARE, SELFPAY ==
[2025-03-23 11:52] VITALS: BMI 26.5
--- NOTE | 2025-08-14 10:07 | DI.CT.S_ITS ---
PROCEDURE: CT KIDNEY URETER BLADDER (KUB) INDICATIONS: Kidney Stones TECHNIQUE: Axial sections were acquired from the lung bases to the pubic symphysis. Coronal and sagittal reformats were performed. For radiation dose reduction, the following was used: automated exposure control, adjustment of mA and/or kV according to patient size. COMPARISON: [facility], CT, CT ABDOMEN PELVIS W CON, 06/24/2025, 12:48. [facility], CT, CT ABDOMEN PELVIS W CON, 03/22/2025, 23:28. FINDINGS: Image quality: Diagnostic. Lower Chest: No significant findings. URINARY: Right Kidney: There is no definite right-sided hydronephrosis. There is a stone seen within the right renal pelvis, measuring 8 mm and 900 Hounsfield units, without findings of obstruction Right Ureter: No hydroureter. Left Kidney: No stones or hydronephrosis. Water density left renal cysts can be seen. Left Ureter: No hydroureter. Bladder: Normal wall thickness. No stones. ABDOMEN: Liver: No contour-deforming solid mass. Gallbladder: No radiopaque gallstones or wall thickening. Biliary ducts: No biliary dilation. Pancreas: There is irregular calcification seen involving the pancreatic head. Pancreatic ductal dilatation is seen, measuring up to 8 mm. Spleen: Size is within normal limits. Adrenal Glands: There is a stable adrenal nodule seen within the central left adrenal gland, measuring 16 mm and 20 Hounsfield units. No right adrenal nodules. Stomach and Bowel: Normal colonic caliber, without significant wall thickening. Peritoneum: No abnormal intraperitoneal fluid. No free air. Ventral Wall: No hernia. Abdominal Nodes: No enlarged retroperitoneal or mesenteric lymph nodes. Vessels: Aorta and inferior vena cava are normal in size. PELVIS: Pelvic Organs: There is prostatectomy change. Pelvic Nodes: Unremarkable. Miscellaneous: Mild bilateral fat containing inguinal hernias are seen. Bones: Remote, healed right posterior rib fractures are seen. Focal L5-S1 degenerative change is seen. Milder degenerative changes are seen elsewhere. IMPRESSION: No obstructing stones or hydronephrosis. There is a nonobstructing 8 mm kidney stone within the right renal pelvis. Findings of chronic pancreatitis can be seen. Additional findings: Stable left adrenal nodule Focal L5-S1 degenerative change Prostatectomy Bilateral fat containing inguinal hernias Dictated by: Wu Ansari M.D. on 08/14/2025 at 10:08 Approved by: Wu Ansari M.D. on 08/14/2025 at 10:12
[2025-08-14 10:16] LABS: Estimated Glomerular Filt Rate > 60 mL/min (>60)
== END ==
PROVIDERS: PCP Family Medicine; Referring Provider Urology; Visit Provider Urology
DX: N20.2 Calculus of kidney with calculus of ureter (principal); N28.1 Cyst of kidney, acquired; K86.1 Other chronic pancreatitis; E27.9 Disorder of adrenal gland, unspecified; M47.817 Spondylosis without myelopathy or radiculopathy, lumbosacral region; K40.20 Bilateral inguinal hernia, without obstruction or gangrene, not specified as recurrent; Z90.79 Acquired absence of other genital organ(s)
CPT/HCPCS: 36415; 74176; 82565

== ENCOUNTER → 2025-10-01 14:44 | Outpatient (CLI) | payer MEDICARE, SELFPAY ==
[2025-03-23 11:52] VITALS: BMI 26.5
[2025-10-01 17:13] LABS: Prostate Specific Antigen < 0.064 ng/mL (0.10-4.00)
== END ==
PROVIDERS: PCP Family Medicine; Referring Provider Internal Medicine Hematology & Oncology; Visit Provider Internal Medicine Hematology & Oncology
DX: C61 Malignant neoplasm of prostate (principal); R23.2 Flushing
CPT/HCPCS: 36415; 84153

== ENCOUNTER 2025-10-28 19:42 | Inpatient (IN) | payer MEDICARE, SELFPAY ==
[2025-03-23 11:52] VITALS: BMI 26.5
[2025-10-28] VITALS (10 sets, daily range): BP systolic 123–141; BP diastolic 66–73; PULSE 58–80; RESP 17; TEMP 36.6; O2SAT 95–98
--- NOTE | 2025-10-28 20:03 | DI.CT.S_ITS ---
PROCEDURE: CT HEAD/BRAIN WO CON INDICATIONS: fall on thinner, etoh TECHNIQUE: Noncontrast 4.5 mm thick angled axial sections acquired from the foramen magnum to the vertex, with coronal and sagittal reformats. For radiation dose reduction, the following was used: automated exposure control, adjustment of mA and/or kV according to patient size. COMPARISON: [facility], CT, CT HEAD/BRAIN WO CON, 03/22/2025, 20:37. FINDINGS: Image quality: Diagnostic. CSF spaces: Basal cisterns are patent. No extra-axial fluid collections. Mild global parenchymal volume loss with associated prominence of the extra-axial spaces and ventricles. Brain: No midline shift. No intracranial mass effect or hemorrhage. Chowdhury- white matter interface is normal. Nonspecific hypodensity within the medulla (2/8), favored artifactual secondary to streak artifact at the skull base. Mild scattered periventricular and subcortical white matter hypodensities, suggestive of chronic small vessel ischemic disease. Skull and face: Calvarium and visualized facial bones are intact, without suspicious lesions. Sinuses: Moderate left maxillary sinus mucosal thickening with polyp versus retention cyst along the anterior wall. Visualized sinuses and mastoids are otherwise clear. IMPRESSION: No acute intracranial pathology. Nonspecific hypodensity within the medulla, favored artifactual secondary to streak artifact at the skull base. Dictated by: Alisha Matthews M.D. on 10/28/2025 at 20:44 Approved by: Alisha Matthews M.D. on 10/28/2025 at 20:51
--- NOTE | 2025-10-28 20:03 | DI.RAD.S_ITS ---
PROCEDURE: XR HIP W PEL IF DONE RT 2V INDICATIONS: fall on thinners, pain TECHNIQUE: AP pelvis with lateral view(s) of the right hip(s). COMPARISON: [facility], , [id number] W PEL IF PERFORMED, 02/04/2017, 14:34. FINDINGS: Bones: Minimally displaced transcervical fracture of the right proximal femur. Mild degenerative changes of the bilateral hip joints. Soft tissues: The visualized bowel gas pattern is normal. No suspicious soft tissue calcifications. Surgical clips project over the pelvis. IMPRESSION: Minimally displaced transcervical fracture of the right proximal femur. Dictated by: Alisha Matthews M.D. on 10/28/2025 at 21:19 Approved by: Alisha Matthews M.D. on 10/28/2025 at 21:22
--- NOTE | 2025-10-28 20:03 | DI.CT.S_ITS ---
PROCEDURE: CT CERVICAL SPINE WO CON INDICATIONS: fall on thinners, etoh TECHNIQUE: Noncontrast 3 mm thick sections acquired from the skull base to the T4 level. Sagittal and coronal reformats were then constructed. For radiation dose reduction, the following was used: automated exposure control, adjustment of mA and/or kV according to patient size. COMPARISON: [facility], CT, CT CERVICAL SPINE WO CON, 03/22/2025, 20:37. FINDINGS: Image quality: Excellent. Bones: No fractures or dislocations. Visualized superior ribs are intact. Mild degenerative changes of the cervical spine without high-grade osseous spinal canal narrowing. Soft tissues: Prevertebral soft tissues are normal in thickness. No paravertebral hematomas. No apical pneumothoraces. Nonspecific dilatation of the right internal jugular vein at the level of the thyroid (2/66). IMPRESSION: No displaced fracture or traumatic subluxation. Dictated by: Alisha Matthews M.D. on 10/28/2025 at 20:51 Approved by: Alisha Matthews M.D. on 10/28/2025 at 20:56
--- NOTE | 2025-10-28 20:18 | ED.FALL ---
HPI - Fall General Chief Complaint: Fall Stated Complaint: GLF + thinners Time Seen by Provider: 10/28/25 19:42 Source: patient and EMS Mode of arrival: EMS History of Present Illness HPI Narrative: 75-year-old gentleman with a history of metastatic prostate cancer, alcohol use disorder, osteoporosis had a ground level fall landing on his right hip he does have an abrasion on his chin but denies hitting his head. He does appear to be intoxicated and clearly states he had his usual 5 drinks of alcohol this evening. He notes that he was unable to get up off the ground which is unusual for him. Complaining of only right hip pain. Does not report recent fevers, cough, cold, chills, chest pain shortness of breath. Related Data Home Medications ?Medication ?Instructions ?Recorded ?Confirmed allopurinol 100 mg tablet 300 mg PO QPM 04/14/18 07/04/25 lisinopril 10 mg tablet 20 mg PO DAILY HTN 11/02/23 07/04/25 abiraterone 500 mg tablet 1,000 mg PO QAM 03/23/25 07/04/25 acetaminophen 325 mg tablet 650 mg PO Q6H PRN Pain (Scale 03/23/25 07/04/25 (Tylenol) Score 4-6) prednisone 5 mg tablet 5 mg PO DAILY 03/23/25 07/04/25 venlafaxine 37.5 mg 37.5 mg PO DAILY 03/23/25 07/04/25 capsule,extended release 24 hr Previous Rx's ?Medication ?Instructions ?Recorded apixaban 5 mg (74 tabs) tablets in See Rx Instructions PO .COMPLEX 05/31/25 a dose pack (Eliquis DVT-PE Treat #74 ea 30D Start) hydrocodone 5 mg-acetaminophen 325 1 tab PO Q4-6H PRN pain #20 tabs 06/24/25 mg tablet Allergies Allergy/AdvReac Type Severity Reaction Status Date / Time No Known Drug Allergies Allergy Verified 10/28/25 20:06 Review of Systems Review of Systems Narrative: Pertinent positive and negative findings as per HPI Patient History Medical History Prostate cancer metastatic to intrapelvic lymph node History of malignant neoplasm of prostate Biochemically recurrent malignant neoplasm of prostate H/O ETOH abuse Elective surgery Gout GERD (gastroesophageal reflux disease) Elevated cholesterol HTN (hypertension) Surgical History Hx of sinus surgery History of shoulder surgery S/P excision of vocal cord nodule Hx of prostatectomy Family History Brother Cancer Gout Mother Stroke Social History marital status: number of children: 5 household members: spouse Previous occupational history: [employer] retired [employer] Tobacco: How many years used: 40 alcohol intake: current caffeine: Yes additional social history: The patient admits to smoking cigarettes but does not drink alcohol or use any drugs. alcohol intake frequency: 3 or more drinks per day Exam Initial Vital Signs Initial Vital Signs: Vital Signs Temperature 98 F 10/28/25 20:06 Pulse Rate 80 10/28/25 20:06 Respiratory Rate 17 10/28/25 20:06 Blood Pressure 129/71 10/28/25 20:06 Pulse Oximetry 97 10/28/25 20:06 Oxygen Delivery Method Room Air 10/28/25 20:06 General: Older appearing, disheveled, puffy around the eyes, charming speech despite smelling of alcohol HEENT: Moist mucous membranes, normal sclera with reactive pupils, Neck: No midline tenderness Respiratory: Lungs are clear to auscultation, no wheezing no rales no rhonchi. Full and symmetrical air movement Cardiac: Regular rate and rhythm no murmurs no bruits Abdomen: Soft, right pelvic ring tenderness. Skin: Warm and dry, minor abrasion to the right elbow Neurologic: He is able to move all extremities Extremities: Tenderness to palpation over the right hip without significant foreshortening or internal rotation Psych: Cooperative, pleasantly intoxicated Course Orders Ordered: ED Orders 10/28/25 20:00 Complete Blood Count AUTO DIFF Stat Comprehensive Metabolic Panel Stat Ethanol (ETOH) Stat NT-proBNP (BNP-Adult 18+) Stat Procalcitonin Stat Troponin I Stat 10/28/25 20:03 CT cervical spine wo con Stat CT head/brain wo con Stat XR hip w pel RT 2V Stat Hydromorphone HCl (Hydromorphone Hcl 0.5 Mg/0.5 Ml Syringe) 0.5 mg IV Q15MIN PRN PRN Reason: Pain, Last Admin: 10/28/25 22:05 Dose: 0.5 mg Documented By: NAIMA Vital Signs Vital signs: Vital Signs - 8 hr 10/28/25 20:06 Temperature 98 F Pulse Rate 80 Respiratory Rate 17 Blood Pressure 129/71 Pulse Oximetry 97 Oxygen Delivery Method Room Air MDM - Fall Lab Data 10/28/25 20:00 10/28/25 20:00 Labs: Lab Results 10/28/25 Range/Units 20:00 WBC 6.6 (4.5-11.0) X10^3/uL RBC 3.78 L (4.5-5.9) X10^6/uL Hgb 12.6 L (13.5-17.5) g/dL Hct 36.9 L (41-53) % MCV 97.6 (80-100) fL MCH 33.4 (26-34) PG MCHC 34.2 (30-36) % RDW 12.9 (11.6-14.8) % Plt Count 262 (150-400) X10^3/uL Neut % (Auto) 66.8 (50-75) % Lymph % (Auto) 27.6 (25-40) % Rabun % (Auto) 4.8 (3-14) % Eos % (Auto) 0.4 L (2-4) % Baso % (Auto) 0.4 (0-2) % Neut # (Auto) 4400 (2438-1070) /uL Lymph # (Auto) 1800 (2900-1455) /uL Rabun # (Auto) 300 (0-900) /uL Eos # (Auto) 0 (0-450) /uL Baso # (Auto) 0 (0-100) /uL Sodium 141 (137-145) mmol/L Potassium 3.0 L (3.4-5.1) mmol/L Chloride 109 H (98-107) mmol/L Carbon Dioxide 20 L (22-32) mmol/L BUN 12 (9-20) mg/dL Creatinine 0.60 L (0.66-1.25) mg/dL Estimated GFR > 60 (>60) mL/min BUN/Creatinine Ratio 20.0 (6-22) Glucose 147 H (70-99) mg/dL Calcium 9.3 (8.4-10.2) mg/dL Total Bilirubin 0.3 (0.2-1.3) mg/dL AST 28 (17-59) IU/L ALT 17 (<50) IU/L Alkaline Phosphatase 75 (38-126) U/L Troponin I < 0.012 (0.01-0.034) ng/mL NT-Pro-B Natriuret Pep 316 (<450) pg/mL Total Protein 6.3 (6.3-8.2) g/dL Albumin 3.8 (3.5-5.0) g/dL Globulin 2.5 (1.7-4.1) g/dL Albumin/Globulin Ratio 1.5 (1.0-2.8) Procalcitonin 0.044 (<0.5) ng/mL Ethyl Alcohol 159 H (<10) mg/dL MDM Narrative Medical decision making narrative: CC: Fall, right hip pain Complicating co-morbidities: Anticoagulated, history of metastatic prostate cancer, alcohol use disorder currently intoxicated, prior pulmonary embolism, history of chronic pancreatitis Data collected from: patient, medics Medical records reviewed: Discharge summary from March 24, 2025, admit was for fall related to alcohol use and alcohol withdrawal I reviewed Differential considered: Hip fracture, pelvic fracture, retroperitoneal bleeding, head bleed, cervical spine injury, plethora of sequelae from his chronic alcohol use Exam documented above, pertinent findings include: Right hip pain to palpation, painful with internal or external rotation of the hip Lab Test results independently reviewed as above. Pertinent findings: CBC shows no leukocytosis. Hemoglobin is 12.6 which is fairly close to his baseline Chemistries show appropriate renal function. Potassium slightly low at 3.0. Liver studies are unremarkable Alcohol level is 159 Imaging studies independently reviewed: CT scan of the head is unremarkable CT of the cervical spine shows no fractures X-ray of the right hip shows femoral neck fracture Consultations: Otto Nuñez. requests NPO after midnight in anticipation of surgery Treatments: Dilaudid for pain control Discussion: 75-year-old gentleman fell, mechanical related to alcohol use, currently on apixaban. Right hip fracture with no other acute injuries appreciated. We will be admitted to the hospitalist service because of his additional medical problems and orthopedic consultation for surgical intervention. Patient is high-risk for alcohol withdrawal symptoms. Patient and his for updated with findings and understands need for hospitalization. Care is reviewed with the hospitalist service and he has accepted for inpatient care. Discharge Plan Departure Patient Disposition: Admitted As Inpatient Clinical Impression: Closed hip fracture, Fall, Alcohol use disorder Admit Date/Time: 10/28/25 22:37
[2025-10-28 20:36] LABS: Add Manual Diff / Slide Review NO; Hematocrit 36.9 % (41-53); Hemoglobin 12.6 g/dL (13.5-17.5); Lymphocytes Absolute Auto 1800 /uL (1100-4500); Mean Corpuscular HGB Conc 34.2 % (30-36); Mean Corpuscular Hemoglobin 33.4 PG (26-34); Mean Corpuscular Volume 97.6 fL (80-100); Platelet Count 262 X10^3/uL (150-400)
[2025-10-28 20:39] LABS: Alanine Aminotransferase 17 IU/L (<50); Albumin 3.8 g/dL (3.5-5.0); Albumin Globulin Ratio 1.5 (1.0-2.8); Alkaline Phosphatase 75 U/L (38-126); Blood Urea Nitrogen 12 mg/dL (9-20); Calcium 9.3 mg/dL (8.4-10.2); Carbon Dioxide 20 mmol/L (22-32); Chloride 109 mmol/L (98-107); Estimated Glomerular Filt Rate > 60 mL/min (>60); Ethanol (ETOH) 159 mg/dL (<10); Globulin 2.5 g/dL (1.7-4.1); Glucose 147 mg/dL (70-99); HEMOLYSIS < 15 (0-50); Potassium 3.0 mmol/L (3.4-5.1); Sodium 141 mmol/L (137-145); Total Protein 6.3 g/dL (6.3-8.2)
[2025-10-28 20:51] LABS: NT-proBNP (BNP-Adult 18+) 316 pg/mL (<450); Troponin I < 0.012 ng/mL (0.01-0.034)
[2025-10-28 20:56] LABS: Procalcitonin 0.044 ng/mL (<0.5)
[2025-10-28] MEDS: SODIUM CHLORIDE 0.9% 1,000 ML 100 ML IV (23:01)
[2025-10-29] VITALS (27 sets, daily range): BP systolic 115–178; BP diastolic 61–89; PULSE 56–104; RESP 13–22; TEMP 36.1–36.9; O2SAT 89–97; BMI 26.1
--- NOTE | 2025-10-29 04:01 | P.HP_ITS ---
History of Present Illness History of Present Illness Chief complaint: GLF + thinners Narrative: 75 years old male with history of hypertension, hyperlipidemia, gout, prostate cancer, GERD, alcohol abuse, DVT on Eliquis, presented to the ER with ground- level fall, landing on his right hip and immediately after that experiencing severe hip pain. The patient was drinking alcohol and presents to the ER intoxicated. Denies any other symptoms. The patient was diagnosed with left leg DVT in March after he had an abdominal surgery and was placed on Eliquis. Laboratory unremarkable except potassium of 3 and blood sugar present. X-ray of the hip shows minimally displaced fracture of the right proximal femur. Head CT unremarkable. 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 Meds Home Medications and Allergies Home Medications ?Medication ?Instructions ?Recorded ?Confirmed ?Type allopurinol 100 mg tablet 300 mg PO QPM 04/14/1807/04 History lisinopril 10 mg tablet 20 mg PO DAILY HTN 11/02/23 07/04/25 History abiraterone 500 mg tablet 1,000 mg PO QAM 03/23/25 History acetaminophen 325 mg tablet 650 mg PO Q6H PRN Pain (Sc deana 03/23/25 07/04/25 History (Tylenol) Score 4-6) prednisone 5 mg tablet 5 mg PO DAILY 03/23/2507/04 History venlafaxine 37.5 mg 37.5 mg PO DAILY 03/23/25 History capsule,extended release 24 hr apixaban 5 mg (74 tabs) tablets in See Rx Instructions PO .COMPLEX 05/31/25 07/04/25 Rx a dose pack (Eliquis DVT-PE Treat #74 ea 30D Start) hydrocodone 5 mg-acetaminophen 325 1 tab PO Q4-6H PRN pain #20 tabs 06/24/25 07/04/25 Rx mg tablet Allergies Allergy/AdvReac Type Severity Reaction Status Date / Time No Known Drug Allergies Allergy Verified 10/28/25 20:06 Review of Systems Review of Systems ROS: Yes All systems reviewed with the patient and are negative except as otherwise documented Constitutional Constitutional: Reports as per HPI and Reports system reviewed and no additional complaints, except as documented Eyes Eyes: Reports as per HPI and Reports system reviewed and no additional complaints, except as documented ENT Ears, Nose, Mouth, and Throat: Yes as per HPI and Yes system reviewed and no additional complaints, except as documented Cardiovascular Cardiovascular: Reports system reviewed and no additional complaints, except as documented Respiratory Respiratory: Reports system reviewed and no additional complaints, except as documented Gastrointestinal Gastrointestinal: Reports system reviewed and no additional complaints, except as documented Genitourinary Genitourinary: Reports system reviewed and no additional complaints, except as documented Musculoskeletal Musculoskeletal: Reports system reviewed and no additional complaints, except as documented, Reports abnormal gait and Reports numbness Neurologic Neurologic: Reports system reviewed and no additional complaints, except as documented, Reports abnormal gait, Reports confusion and Reports numbness Psychiatric Psychiatric: Reports system reviewed and no additional complaints, except as documented and Reports confusion Exam Vital Signs (past 8 hours): - 10/28/25 20:02 10/28/25 20:06 10/28/25 20:30 Temperature 98 F Pulse Rate 78 80 Respiratory Rate 17 Blood Pressure 129/71 135/70 Pulse Oximetry 97 97 Oxygen Delivery Method Room Air 10/28/25 20:30 10/28/25 21:00 10/28/25 21:00 Temperature Pulse Rate 60 58 L Respiratory Rate Blood Pressure 132/66 Pulse Oximetry 95 98 Oxygen Delivery Method 10/28/25 21:30 10/28/25 21:30 10/28/25 22:00 Temperature Pulse Rate 59 L Respiratory Rate Blood Pressure 123/66 141/73 H Pulse Oximetry 98 Oxygen Delivery Method 10/28/25 22:00 10/28/25 22:30 10/28/25 22:30 Temperature Pulse Rate 74 58 L Respiratory Rate Blood Pressure 130/71 Pulse Oximetry 95 95 Oxygen Delivery Method 10/28/25 23:00 10/28/25 23:00 10/28/25 23:30 Temperature Pulse Rate 75 Respiratory Rate Blood Pressure 132/67 136/73 Pulse Oximetry 96 Oxygen Delivery Method Room Air 10/28/25 23:30 10/29/25 00:00 10/29/25 00:00 Temperature Pulse Rate 59 L 64 Respiratory Rate Blood Pressure 127/67 Pulse Oximetry 97 97 Oxygen Delivery Method Room Air 10/29/25 00:30 10/29/25 00:30 10/29/25 01:00 Temperature Pulse Rate 66 Respiratory Rate Blood Pressure 134/64 133/67 Pulse Oximetry 94 Oxygen Delivery Method 10/29/25 01:00 10/29/25 01:30 10/29/25 01:30 Temperature Pulse Rate 63 65 Respiratory Rate Blood Pressure 136/68 Pulse Oximetry 94 95 Oxygen Delivery Method 10/29/25 02:00 10/29/25 02:30 10/29/25 03:00 Temperature Pulse Rate 59 L 59 L 59 L Respiratory Rate Blood Pressure Pulse Oximetry 94 93 94 Oxygen Delivery Method Room Air 10/29/25 03:30 Temperature Pulse Rate 60 Respiratory Rate Blood Pressure Pulse Oximetry 93 Oxygen Delivery Method Oxygen Delivery Method Room Air Const General: cooperative, comfortable and well developed Orientation: alert and oriented x3 HENMT Head: normal to inspection, normocephalic and atraumatic Face and sinus: normal facial exam Mouth: oral mucosae normal and moist mucous membranes Throat: posterior oropharynx normal Eyes General: appearance normal, both eyes and all related structures Pupils: PERRL EOM: EOM intact bilaterally Neck Neck: normal visual inspection and full ROM Chest Chest: normal inspection of the chest Resp Effort & Inspection: normal respiratory effort and able to speak in complete sentences Auscultation: clear to auscultation bilaterally Cardio Palpation: normal PMI Rate: regular rate Rhythm: regular rhythm Heart Sounds: S1 normal and S2 normal GI Inspection: normal to inspection Palpation: soft and no hepatosplenomegaly Auscultation: normal bowel sounds Skin General: no rashes or lesions noted Lesions: no lesions Rashes: no rashes Trauma: no lacerations or abrasions Neuro General: patient alert, patient awake, patient oriented x3 and no focal motor deficits Cranial Nerves: CN's II-XI intact bilaterally Cognition: normal cognition Speech: speech normal Gait: normal gait Motor: muscle tone normal throughout Sensory Exam: no sensory deficits noted Extrem General: full ROM and no calf tenderness Psych Appearance: grossly normal Mental Status: mental status grossly normal Speech and Movement: speech and movement normal Objective Labs 10/28/25 20:00 10/28/25 20:00 Labs: Laboratory Results - last 24 hr 10/28/25 20:00 WBC 6.6 RBC 3.78 L Hgb 12.6 L Hct 36.9 L MCV 97.6 MCH 33.4 MCHC 34.2 RDW 12.9 Plt Count 262 Neut % (Auto) 66.8 Lymph % (Auto) 27.6 [place] % (Auto) 4.8 Eos % (Auto) 0.4 L Baso % (Auto) 0.4 Neut # (Auto) 4400 Lymph # (Auto) 1800 [place] # (Auto) 300 Eos # (Auto) 0 Baso # (Auto) 0 Sodium 141 Potassium 3.0 L Chloride 109 H Carbon Dioxide 20 L BUN 12 Creatinine 0.60 L Estimated GFR > 60 BUN/Creatinine Ratio 20.0 Glucose 147 H Calcium 9.3 Total Bilirubin 0.3 AST 28 ALT 17 Alkaline Phosphatase 75 Troponin I < 0.012 NT-Pro-B Natriuret Pep 316 Total Protein 6.3 Albumin 3.8 Globulin 2.5 Albumin/Globulin Ratio 1.5 Procalcitonin 0.044 Ethyl Alcohol 159 H Assessment & Plan Assessment & Plan narrative: Left femoral fracture after ground-level fall. -IV Fluids -Nothing by mouth for now -Hold Eliquis for now -NWB and Immobilization and elevation of his extremity -Orthopedic consult for F/U -Incentive spirometry -Pain medications as needed -Bowel regimen while on narcotics -Fall precaution -PT and OT evaluation on discharge Hypertension. Hold lisinopril before surgery. Hydralazine as needed. Prostate cancer. Restart medication including prednisone Gout. Restart allopurinol. Dg I performed this consultation using real-time telehealth tools, including a live video connection between my location and the patient's location. As the provider for this telehealth service, I attest that I introduced myself to the patient, provided my credentials, disclosed my location, and determined that, based on a review of the patients chart and/or a discussion with members of the patient's treatment team, telemedicine via a real-time, two-way, interactive audio and video platform is an appropriate and effective means of providing this service. The patient and I mutually agree that this visit is appropriate for telemedicine as well. Disclaimer Note: To increase efficiency, your provider may have prepared this document using voice recognition technology. In that case, if a word or phrase is confusing, or does not make sense, this is likely due to a recognition error within the program which was not discovered during the provider?s review. If you believe an error has occurred, please notify your provider?s office at your earliest convenience, so we can correct any mistakes. Time-Based Coding :: 55 min spent with patient and on the chart (including review of chart, obtaining history, exam, reviewing outside data, placing orders, documenting exam and treatment plan, and counseling patient) on 10/28/2025. Quality VTE Deep Vein Thrombosis/Pulmonary Embolism Present on Admission: No MIPS - Admit I confirm the patient?s Advance Care Plan is present, Code status is documented, Surrogate decision maker is in patient?s record [If Yes, STOP here]: Yes MIPS - Meds 'Current medications' to include all prescriptions, etzl-yln-eoecuym products, herbals, cannabis/cannabidiol products, and vitamin/mineral/dietary (nutritional) supplements. I have utilized all available resources to obtain, update, or review the patient?s current medications. [If Yes, STOP here]: Yes
[2025-10-29] MEDS: POTASSIUM CHLORIDE IN WATER 10 MEQ/100 ML PIGGYBACK 100 MEQ IV ×2 (04:24→05:32)
[2025-10-29] MEDS: ONDANSETRON 4 MG/2 ML INJ IV ×2 (05:40→18:45)
--- NOTE | 2025-10-29 07:06 | PM.HP.IH.1 ---
History of Present Illness History of Present Illness Chief complaint: GLF + thinners PFSH Medical History Prostate cancer metastatic to intrapelvic lymph node History of malignant neoplasm of prostate Biochemically recurrent malignant neoplasm of prostate H/O ETOH abuse Elective surgery Gout GERD (gastroesophageal reflux disease) Elevated cholesterol HTN (hypertension) Surgical History Hx of sinus surgery History of shoulder surgery S/P excision of vocal cord nodule Hx of prostatectomy Family History Brother Cancer Gout Mother Stroke Social History marital status: number of children: 5 household members: spouse Previous occupational history: [employer] retired [employer] Tobacco: How many years used: 40 alcohol intake: current caffeine: Yes additional social history: The patient admits to smoking cigarettes but does not drink alcohol or use any drugs. Meds Home Medications and Allergies Home Medications ?Medication ?Instructions ?Recorded ?Confirmed ?Type allopurinol 100 mg tablet 300 mg PO QPM 04/14/18 07/04/25 History lisinopril 10 mg tablet 20 mg PO DAILY HTN 11/02/23 07/04/25 History abiraterone 500 mg tablet 1,000 mg PO QAM 03/23/25 07/04/25 History acetaminophen 325 mg tablet 650 mg PO Q6H PRN Pain (Scale 03/23/25 07/04/25 History (Tylenol) Score 4-6) prednisone 5 mg tablet 5 mg PO DAILY 03/23/25 07/04/25 History venlafaxine 37.5 mg 37.5 mg PO DAILY 03/23/25 07/04/25 History capsule,extended release 24 hr apixaban 5 mg (74 tabs) tablets in See Rx Instructions PO .COMPLEX 05/31/25 07/04/25 Rx a dose pack (Eliquis DVT-PE Treat #74 ea 30D Start) hydrocodone 5 mg-acetaminophen 325 1 tab PO Q4-6H PRN pain #20 tabs 06/24/25 07/04/25 Rx mg tablet Allergies Allergy/AdvReac Type Severity Reaction Status Date / Time No Known Drug Allergies Allergy Verified 10/28/25 20:06 Exam Vital Signs (past 8 hours): - 10/28/25 23:30 10/28/25 23:30 10/29/25 00:00 Pulse Rate 59 L 64 Blood Pressure 136/73 Pulse Oximetry 97 97 Oxygen Delivery Method Room Air 10/29/25 00:00 10/29/25 00:30 10/29/25 00:30 Pulse Rate 66 Blood Pressure 127/67 134/64 Pulse Oximetry 94 Oxygen Delivery Method 10/29/25 01:00 10/29/25 01:00 10/29/25 01:30 Pulse Rate 63 65 Blood Pressure 133/67 Pulse Oximetry 94 95 Oxygen Delivery Method 10/29/25 01:30 10/29/25 02:00 10/29/25 02:30 Pulse Rate 59 L 59 L Blood Pressure 136/68 Pulse Oximetry 94 93 Oxygen Delivery Method Room Air 10/29/25 03:00 10/29/25 03:30 10/29/25 04:00 Pulse Rate 59 L 60 70 Blood Pressure Pulse Oximetry 94 93 95 Oxygen Delivery Method 10/29/25 04:00 Pulse Rate Blood Pressure 175/79 H Pulse Oximetry Oxygen Delivery Method Oxygen Delivery Method Room Air Objective Labs 10/28/25 20:00 10/28/25 20:00 Labs: Laboratory Results - last 24 hr 10/28/25 20:00 WBC 6.6 RBC 3.78 L Hgb 12.6 L Hct 36.9 L MCV 97.6 MCH 33.4 MCHC 34.2 RDW 12.9 Plt Count 262 Neut % (Auto) 66.8 Lymph % (Auto) 27.6 Cook % (Auto) 4.8 Eos % (Auto) 0.4 L Baso % (Auto) 0.4 Neut # (Auto) 4400 Lymph # (Auto) 1800 Cook # (Auto) 300 Eos # (Auto) 0 Baso # (Auto) 0 Sodium 141 Potassium 3.0 L Chloride 109 H Carbon Dioxide 20 L BUN 12 Creatinine 0.60 L Estimated GFR > 60 BUN/Creatinine Ratio 20.0 Glucose 147 H Calcium 9.3 Total Bilirubin 0.3 AST 28 ALT 17 Alkaline Phosphatase 75 Troponin I < 0.012 NT-Pro-B Natriuret Pep 316 Total Protein 6.3 Albumin 3.8 Globulin 2.5 Albumin/Globulin Ratio 1.5 Procalcitonin 0.044 Ethyl Alcohol 159 H Assessment & Plan Assessment & Plan narrative: CC: RIGHT Hip Pain HPI: 75yo M with a past medical history of hypertension, hyperlipidemia, gout, prostate cancer, GERD, alcohol abuse and history of Eliquis use due to a DVT presents to the emergency department after a ground level fall where he sustained a right hip fracture.? It was reported that [place] Fell and was unable to get up.? He was then brought to the emergency department where radiographs were obtained and it was discovered that he had a right hip femoral neck fracture.? Orthopedics was then consulted. On presentation today patient reports significant right hip pain.? Denies loss of sensation.? He has not eaten anything since last night. EXAM: RIGHT Hip: Inspection: No erythema, swelling, bruising, atrophy. ROM deferred due to known hip fracture Neurovascular exam: ?Fires ta/gc/ehl; SILT s/s/sp/dp/t, cap refill less than 2 Imaging: Radiographs of the right hip on October 28, 2025:? Displaced, femoral neck fracture. ASSESSMENT: 75yo M presents with history, physical exam and imaging findings consistent with a right femoral neck fracture.? I explained to the patient that in order to returned to function quickly I would recommend operative management.? Given the displaced nature of the femoral neck I would recommend a right hip hemiarthroplasty. The risks, benefits and alternatives of the procedure were discussed with the patient to include bleeding, infection, damage to surrounding structures, ongoing pain, hip dislocation, need for additional surgeries and anesthesia risks such as heart attack, stroke and .? The patient understood these risks and want to move forward with the procedure. He was consented for a right hip hemiarthroplasty. PLAN: Admission to the hospitalist (appreciate their help with this patient) ?nonweightbearing right lower extremity ?NPO ?hold Eliquis ?right hip hemiarthroplasty on October 29, 2025 ?we will require social work/PT and OT The patient had the treatment plan explained, questions answered and seemed satisfied with the plan. There were no apparent barriers to communication. The documentation in this note may have been entered with the assistance of computer voice recognition and dictation software. Therefore, it may contain unintended errors in text, spelling, punctuation, or grammar. Branden Medina MD Orthopaedic Surgeon Time-Based Coding :: 60 mintues spent with patient and on the chart (including review of chart, obtaining history, exam, reviewing outside data, placing orders, documenting exam and treatment plan, and counseling patient) on 10/29/25. Quality VTE Deep Vein Thrombosis/Pulmonary Embolism Present on Admission: No I[facility] PROFEE Griddle Attendant Document charge(s): Yes
[2025-10-29 07:19] LABS: Add Manual Diff / Slide Review NO; Hematocrit 32.1 % (41-53); Hemoglobin 11.2 g/dL (13.5-17.5); Lymphocytes Absolute Auto 1300 /uL (1100-4500); Mean Corpuscular HGB Conc 34.8 % (30-36); Mean Corpuscular Hemoglobin 33.7 PG (26-34); Mean Corpuscular Volume 97.0 fL (80-100); Platelet Count 197 X10^3/uL (150-400)
[2025-10-29 07:34] LABS: Ethanol (ETOH) < 10 mg/dL (<10)
[2025-10-29 07:35] LABS: Alanine Aminotransferase 17 IU/L (<50); Albumin 3.1 g/dL (3.5-5.0); Albumin Globulin Ratio 1.2 (1.0-2.8); Alkaline Phosphatase 69 U/L (38-126); Blood Urea Nitrogen 11 mg/dL (9-20); Calcium 8.7 mg/dL (8.4-10.2); Carbon Dioxide 23 mmol/L (22-32); Chloride 112 mmol/L (98-107); Estimated Glomerular Filt Rate > 60 mL/min (>60); Globulin 2.5 g/dL (1.7-4.1); Glucose 100 mg/dL (70-99); HEMOLYSIS < 15 (0-50); Magnesium 1.7 mg/dL (1.6-2.3); Potassium 3.5 mmol/L (3.4-5.1); Sodium 140 mmol/L (137-145); Total Protein 5.6 g/dL (6.3-8.2)
--- NOTE | 2025-10-29 08:55 | SUR.HOLD ---
Placed patient on traffic monitor specialist while in holding area. Resting quietly. No needs at this time and states pain to right hip is better.
--- NOTE | 2025-10-29 09:17 | PM.HP.1 ---
History of Present Illness History of Present Illness Date Patient Seen: 10/29/25 Chief complaint: GLF + thinners Narrative: History of Present Illness History of Present Illness Chief complaint: GLF + thinners Narrative: This is a 75 years old male with hypertension, hyperlipidemia, gout, prostate cancer, GERD, alcohol abuse, DVT on Eliquis who presented to the ER with a ground-level fall at the bar where he had been drinking Vodka, landing on his right hip and immediately after that experiencing severe hip pain. The patient was drinking alcohol so had a level of 159. Denies any other symptoms. The patient was diagnosed with left leg DVT in March after he had an abdominal surgery and was placed on Eliquis. Laboratory unremarkable except for a potassium of 3.0, now up to 3.5. X-ray of the hip shows minimally displaced fracture of the right proximal femur. Head CT unremarkable. Const General: cooperative, comfortable and well developed Orientation: alert and oriented x3 HENMT Head: normal to inspection, normocephalic and atraumatic Face and sinus: normal facial exam Mouth: oral mucosa normal and moist mucous membranes Throat: posterior oropharynx normal Eyes General: appearance normal, both eyes and all related structures Pupils: PERRL EOM: EOM intact bilaterally No icterus Neck Neck: normal visual inspection and full ROM Chest Chest: normal inspection of the chest Resp Effort & Inspection: normal respiratory effort and able to speak in complete sentences Auscultation: clear to auscultation bilaterally Cardio Palpation: normal PMI Rate: regular rate Rhythm: regular rhythm Heart Sounds: S1 normal and S2 normal. No murmur. GI Inspection: normal to inspection Palpation: soft and no hepatosplenomegaly Auscultation: normal bowel sounds Skin General: no rashes or lesions noted Lesions: no lesions Rashes: no rashes Trauma: no lacerations or abrasions Neuro General: patient alert, patient awake, patient oriented x3 and no focal motor deficits Cranial Nerves: CN's II-XI intact bilaterally Cognition: normal cognition Speech: speech normal Gait: normal gait Motor: muscle tone normal throughout Sensory Exam: no sensory deficits noted Extrem General: full ROM and no calf tenderness. No ankle edema. Psych Appearance: grossly normal Mental Status: mental status grossly normal Speech and Movement: speech and movement normal Assessment & Plan Left femoral fracture after ground-level fall. -IV Fluids -Nothing by mouth -Hold Eliquis for now -NWB and Immobilization and elevation of his extremity -Pending orthopedic repair today -Incentive spirometry -Pain medications as needed -Bowel regimen while on narcotics -Fall precaution -PT and OT evaluation on discharge Hypertension. Hold lisinopril before surgery. Hydralazine as needed. Prostate cancer. Restart medication including prednisone Gout. Restart allopurinol. Hypokalemia -replenish potassium. -Recheck electrolytes daily -Depending on laboratory values any electrolyte disbalance need to be appropriately replenished and corrected. Alcohol abuse with intoxication. Check alcohol level and monitor. -He states that he has abstained for 1 or 2 weeks at a time without any withdrawal symptoms. -Add CIWA and monitor for any withdrawal symptoms. -Venlafaxine SCD to prevent DVT while surgery is pending. [facility], [facility] Medical History Prostate cancer metastatic to intrapelvic lymph node History of malignant neoplasm of prostate Biochemically recurrent malignant neoplasm of prostate H/O ETOH abuse Elective surgery Gout GERD (gastroesophageal reflux disease) Elevated cholesterol HTN (hypertension) Surgical History Hx of sinus surgery History of shoulder surgery S/P excision of vocal cord nodule Hx of prostatectomy Family History Brother Cancer Gout Mother Stroke Social History marital status: number of children: 5 household members: spouse Previous occupational history: [employer] retired [employer] Smoking Status: Current every day smoker Tobacco: How many years used: 40 alcohol intake: current caffeine: Yes additional social history: The patient admits to smoking cigarettes but does not drink alcohol or use any drugs. Meds Home Medications and Allergies Home Medications ?Medication ?Instructions ?Recorded ?Confirmed ?Type allopurinol 100 mg tablet 300 mg PO QPM 04/14/18 10/29/25 History lisinopril 10 mg tablet 20 mg PO DAILY HTN 11/02/23 10/29/25 History abiraterone 500 mg tablet 1,000 mg PO QAM 03/23/25 10/29/25 History acetaminophen 325 mg tablet 1,300 mg PO Q8HR PRN Pain (Scale 03/23/25 10/29/25 History (Tylenol) Score 4-6) prednisone 5 mg tablet 5 mg PO DAILY 03/23/25 10/29/25 History venlafaxine 37.5 mg 37.5 mg PO DAILY 03/23/25 10/29/25 History capsule,extended release 24 hr apixaban 5 mg (74 tabs) tablets in See Rx Instructions PO .COMPLEX 05/31/25 10/29/25 Rx a dose pack (Eliquis DVT-PE Treat #74 ea 30D Start) Allergies Allergy/AdvReac Type Severity Reaction Status Date / Time No Known Drug Allergies Allergy Verified 10/29/25 12:06 Review of Systems Review of Systems Narrative: Positive for intoxication and hip pain. Unsteadiness. Negative for fevers, chills, sweats, chest pain, nausea, vomiting, abdominal pain, bleeding, rash, new allergies, sore throat. Exam Vital Signs (past 8 hours): - 10/29/25 01:30 10/29/25 01:30 10/29/25 02:00 Temperature Pulse Rate 65 59 L Respiratory Rate Blood Pressure 136/68 Pulse Oximetry 95 94 Oxygen Delivery Method 10/29/25 02:30 10/29/25 03:00 10/29/25 03:30 Temperature Pulse Rate 59 L 59 L 60 Respiratory Rate Blood Pressure Pulse Oximetry 93 94 93 Oxygen Delivery Method Room Air 10/29/25 04:00 10/29/25 04:00 10/29/25 08:18 Temperature 97.1 F L Pulse Rate 70 61 Respiratory Rate 14 Blood Pressure 175/79 H 160/88 H Pulse Oximetry 95 95 Oxygen Delivery Method Room Air 10/29/25 08:55 Temperature Pulse Rate 60 Respiratory Rate 16 Blood Pressure 172/84 H Pulse Oximetry 93 Oxygen Delivery Method Room Air Oxygen Delivery Method Room Air Objective Labs 10/29/25 07:01 10/29/25 07:01 Labs: Laboratory Results - last 24 hr 10/28/25 10/29/25 20:00 07:01 WBC 6.6 6.3 RBC 3.78 L 3.31 L Hgb 12.6 L 11.2 L Hct 36.9 L 32.1 L MCV 97.6 97.0 MCH 33.4 33.7 MCHC 34.2 34.8 RDW 12.9 12.9 Plt Count 262 197 Neut % (Auto) 66.8 68.1 Lymph % (Auto) 27.6 20.5 L [place] % (Auto) 4.8 9.3 Eos % (Auto) 0.4 L 1.7 L Baso % (Auto) 0.4 0.4 Neut # (Auto) 4400 4300 Lymph # (Auto) 1800 1300 [place] # (Auto) 300 600 Eos # (Auto) 0 100 Baso # (Auto) 0 0 Sodium 141 140 Potassium 3.0 L 3.5 Chloride 109 H 112 H Carbon Dioxide 20 L 23 BUN 12 11 Creatinine 0.60 L 0.48 L Estimated GFR > 60 > 60 BUN/Creatinine Ratio 20.0 22.9 H Glucose 147 H 100 H Calcium 9.3 8.7 Magnesium 1.7 Total Bilirubin 0.3 0.2 AST 28 22 ALT 17 17 Alkaline Phosphatase 75 69 Troponin I < 0.012 NT-Pro-B Natriuret Pep 316 Total Protein 6.3 5.6 L Albumin 3.8 3.1 L Globulin 2.5 2.5 Albumin/Globulin Ratio 1.5 1.2 Procalcitonin 0.044 Ethyl Alcohol 159 H < 10 Assessment & Plan Time-Based Coding :: [TOTAL MINUTES] spent with patient and on the chart (including review of chart, obtaining history, exam, reviewing outside data, placing orders, documenting exam and treatment plan, and counseling patient) on [DATE]. Quality VTE Deep Vein Thrombosis/Pulmonary Embolism Present on Admission: No
--- NOTE | 2025-10-29 09:59 | PT-IP ANOTE ---
PT evaluation not appropriate secondary to having surgery on 10/29/25. New order requested after surgical intervention.
[2025-10-29] MEDS: FAMOTIDINE 20 MG/2 ML VIAL IV (10:07)
--- NOTE | 2025-10-29 10:13 | OT.IPNOTE ---
Pt to have hip sx today therefore discharge OT eval orders.
[2025-10-29] MEDS: LACTATED RINGERS 1,000 ML 42 ML IV ×3 (10:15→16:32)
[2025-10-29] MEDS: PYRIDOXINE (VITAMIN B6) 50 MG TABLET 25 MG PO (10:16)
[2025-10-29] MEDS: ACETAMINOPHEN IV 1,000 MG/100 ML VIAL 400 MG IV (10:39)
--- NOTE | 2025-10-29 16:02 | SUR.OPER ---
Lateral on padded OR bed. Gel axillary roll. Arms secured on padded armboard with pillow supporting top arm. Padded hip positioner braces x4 - anterior and posterior chest and pelvis. Additional gel pad used anterior pelvis. Gel pad under bottom leg from knee to foot and secured with tape over sheet. Surgeon approved final position prior to start of procedure.
[2025-10-29] MEDS: TRANEXAMIC ACID 1,000 MG in SODIUM CHLORIDE 0.9% 100 ML 200 MG IV ×2 (16:46→17:28)
[2025-10-29] MEDS: SODIUM CHLORIDE IRRIG SOLUTION 250 ML, EPINEPHrine 1 MG IRR (17:16)
--- NOTE | 2025-10-29 18:13 | P.OP_ITS ---
Operative Date/Time/Diagnoses Date of procedure: 10/29/25 Time of procedure: 16:00 Pre-op diagnosis: RIGHT Hip femoral neck fracture Post-op diagnosis: same Procedure & Clinicians Procedure: Right hip hemiarthroplasty Same procedure(s) as scheduled: Yes Surgeon: Branden Medina Assisted?: Yes Nursery Hand: Dina Robles Anesthesia Type: General Operative Notes Findings: Complete right femoral neck fracture Closure Type: primary Specimen(s): none sent Applied: none Estimated Blood Loss (mL): 200 Blood products transfused: none Procedure in detail: Op Note Date of Procedure: 10/29/25 Pre-Op Diagnosis: RIGHT Closed, displaced femoral neck fracture Post-Op Diagnosis: RIGHT Closed, displaced femoral neck fracture Procedure: RIGHT Armani Hip Arthroplasty Surgeon: Branden Medina MD Nursery Hand in OR: KEENAN Gary Anesthesia Type: General EBL: 200cc Urine Output : N/A Specimens Removed: None Complications:None Implants/Grafts: Kelly&Nephew Tandem Bipolar 52mm +0 Kelly&Nephew Synergy Cemented Stem Size 12 Kelly&Nephew Distal Post Centralizer Drains: No lines, drains, or airways are recorded for this episode. Findings: Displaced right femoral neck fracture Narrative: The patient was taken to the OR and administered anesthetic and preoperative antibiotics. They were placed in the lateral position with axillary roll placed and padding under and in between the legs. SCD device placed on the nonoperative leg. Standard prep and drape was done and groin isolation drape placed. Timeout procedure performed. Posterior approach to the hip was used. Incision was made centered over the greater trochanter proximally 10 cm in length. Incision carried down through skin and subcutaneous fat to the fascia matt. Hemostasis achieved. Fascia matt opened gluteus muscle divided. Charnley retractor placed. Capsule and external rotators were removed from the posterior femur in an L-shaped fashion as a single layer and tagged with a #5 Tycron suture in the external rotators. Femoral neck cut was then made 1 cm above the lesser trochanter and fragments removed. The head fragment removed with a corkscrew and measured to be [] mm. Acetabulum was cleared of any bony debris. Posterior capsule was removed from the inner aspect of the greater trochanter and preserved as a superior flap for later repair. Box osteotome initially used followed by canal finder and lateralizing reamer. Broaching of the canal was done after suctioning the canal. Size 12 broach had excellent fit with axial and rotational stability. Trialing was done with proper head size and size 0 spacer provided excellent stability with full extension and external rotation and internal rotation, hip flexion to greater than 60?. Leg lengths appeared appropriate at the knees and heel. Trials were removed and irrigation and suctioning was done. Final stem was tapped into place, trunnion cleaned and dried after repeat trialing. Final monopolar head and spacer tapped into place and hip reduced. Posterior capsule closed with #5 Tycron sutures. External rotators close to the posterior inner aspect of the greater trochanter through 2 drill holes pulling the previously placed tagging sutures through and tying a knot. Fascia matt closed with #1 Vicryl interrupted sutures distally and running proximally. Skin closed with #1 Vicryl deep as needed and 2-0 Vicryl and roselyn in skin. Sterile dressing placed. Patient transferred to recovery room in stable condition. Plan: Weightbearing as tolerated on extremity. Posterior hip precautions. Follow-up in 2 weeks for wound check and staple removal. DVT prophylaxis. Physical therapy. Branden Medina MD Complications: none Post-operative Condition: stable Disposition: PACU
--- NOTE | 2025-10-29 18:25 | DI.RAD.S_ITS ---
PROCEDURE: XR HIP W PEL IF DONE RT 2V INDICATIONS: post operative imaging TECHNIQUE: AP view of the pelvis and cross-table lateral view of the right hip. COMPARISON: [facility], CR, XR HIP W PEL RT 2V, 10/28/2025, 20:00. FINDINGS: Interval right hip ginger arthroplasty. No hardware failure. No dislocation. Mild degenerative change left hip. Surgical roselyn project over the pelvis and right thigh skin. Expected postoperative soft tissue gas. IMPRESSION: As above Dictated by: Zander Robins M.D. on 10/29/2025 at 19:15 Approved by: Zander Robins M.D. on 10/29/2025 at 19:16
[2025-10-29] MEDS: HYDROmorphone 2 MG/ML SYRINGE 0.5 MG IV (18:47)
[2025-10-29] MEDS: ACETAMINOPHEN 325 MG TABLET 650 MG PO (20:28)
[2025-10-29] MEDS: LACTATED RINGERS 1,000 ML 100 ML IV (20:29)
[2025-10-29] MEDS: DOCUSATE 100 MG CAPSULE PO (20:29)
[2025-10-30] VITALS (8 sets, daily range): BP systolic 122–159; BP diastolic 63–78; PULSE 66–80; RESP 16–19; TEMP 36.1–36.8; O2SAT 90–96
[2025-10-30] MEDS: ACETAMINOPHEN 325 MG TABLET 650 MG PO ×4 (01:40→20:50)
[2025-10-30 06:25] LABS: Add Manual Diff / Slide Review NO; Hematocrit 29.3 % (41-53); Hemoglobin 10.1 g/dL (13.5-17.5); Lymphocytes Absolute Auto 800 /uL (1100-4500); Mean Corpuscular HGB Conc 34.5 % (30-36); Mean Corpuscular Hemoglobin 33.6 PG (26-34); Mean Corpuscular Volume 97.2 fL (80-100); Platelet Count 185 X10^3/uL (150-400)
[2025-10-30 06:34] LABS: Alanine Aminotransferase 15 IU/L (<50); Albumin 2.9 g/dL (3.5-5.0); Albumin Globulin Ratio 1.2 (1.0-2.8); Alkaline Phosphatase 79 U/L (38-126); Blood Urea Nitrogen 10 mg/dL (9-20); Calcium 8.5 mg/dL (8.4-10.2); Carbon Dioxide 23 mmol/L (22-32); Chloride 108 mmol/L (98-107); Estimated Glomerular Filt Rate > 60 mL/min (>60); Globulin 2.4 g/dL (1.7-4.1); Glucose 149 mg/dL (70-99); HEMOLYSIS < 15 (0-50); Magnesium 1.5 mg/dL (1.6-2.3); Potassium 3.9 mmol/L (3.4-5.1); Sodium 137 mmol/L (137-145); Total Protein 5.3 g/dL (6.3-8.2)
[2025-10-30] MEDS: LACTATED RINGERS 1,000 ML 100 ML IV (07:42)
--- NOTE | 2025-10-30 08:05 | PM.PNPO.1 ---
Exam Vital Signs (past 8 hours): - 10/30/25 04:00 10/30/25 04:42 Temperature 98.3 F Pulse Rate 66 Blood Pressure 126/75 Pulse Oximetry 94 96 Oxygen Flow Rate 1 0 Oxygen Delivery Method Room Air Oxygen Flow Rate 0 Objective Labs 10/30/25 06:15 10/30/25 06:15 Labs: Laboratory Results - last 24 hr 10/30/25 06:15 WBC 9.6 D RBC 3.02 L Hgb 10.1 L Hct 29.3 L MCV 97.2 MCH 33.6 MCHC 34.5 RDW 12.9 Plt Count 185 Neut % (Auto) 85.2 H Lymph % (Auto) 8.3 L [place] % (Auto) 6.1 Eos % (Auto) 0.0 L Baso % (Auto) 0.4 Neut # (Auto) 8200 H Lymph # (Auto) 800 L [place] # (Auto) 600 Eos # (Auto) 0 Baso # (Auto) 0 Sodium 137 Potassium 3.9 Chloride 108 H Carbon Dioxide 23 BUN 10 Creatinine 0.57 L Estimated GFR > 60 BUN/Creatinine Ratio 17.5 Glucose 149 H Calcium 8.5 Magnesium 1.5 L Total Bilirubin 0.4 AST 23 ALT 15 Alkaline Phosphatase 79 Total Protein 5.3 L Albumin 2.9 L Globulin 2.4 Albumin/Globulin Ratio 1.2 PFSH Medical History Prostate cancer metastatic to intrapelvic lymph node History of malignant neoplasm of prostate Biochemically recurrent malignant neoplasm of prostate H/O ETOH abuse Elective surgery Gout GERD (gastroesophageal reflux disease) Elevated cholesterol HTN (hypertension) Surgical History Hx of sinus surgery History of shoulder surgery S/P excision of vocal cord nodule Hx of prostatectomy Family History Brother Cancer Gout Mother Stroke Social History marital status: number of children: 5 household members: spouse 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 Assessment & Plan Post-op Postoperative Procedures: Procedures Operation Date: 10/29/25 15:15 Actual Procedure Side Surgeon p Hip Hemiarthroplasty Right Branden Medina MD Postoperative status narrative: ID: [id number] yo M s/p RIGHT Hip Hemiarthroplasty on 10/29/25 S: Pain controlled with pain medications. Reports that he is sore in the right hip. Denies F/C/NS/CP/SOB. Tolerating PO. O: RIGHT Hip: Dressings with minor strikethrough Fires Quad/Hamstring/TA/Gastroc/EHL SILT in S/S/DP/SP/T nerve distributions Cap refill < 2 sec A/P: 75 yo M s/p RIGHT Hip Hemiarthroplasty on 10/29/25. Recovering as expected. ?Admitted to Hospitalist (Appreciate assistance with this patient) ?WBAT ?PT/OT ?DVT Proph per primary team ?Multimodal Pain Control ?DISPO: Pending however the patient will follow up with Orthopedics in 2 weeks Branden Medina MD Orthopedics [phone] cell Postoperative plan: routine post-op care Time Spent With Patient Time with patient: 15-24 minutes Quality VTE Deep Vein Thrombosis/Pulmonary Embolism Present on Admission: No
[2025-10-30] MEDS: MULTIVITAMIN 1 TABLET 1 TAB PO (10:06)
[2025-10-30] MEDS: DOCUSATE 100 MG CAPSULE PO ×2 (10:06→20:50)
[2025-10-30] MEDS: MAGNESIUM OXIDE 400 MG TABLET PO (10:07)
[2025-10-30] MEDS: APIXABAN 5 MG TABLET PO ×2 (10:07→20:51)
[2025-10-30] MEDS: MAGNESIUM SULFATE 2 GM/50 ML PIGGYBACK IV (10:08)
[2025-10-30] MEDS: ABIRATERONE 500 MG 1000 EACH PO (11:11)
[2025-10-30] MEDS: VENLAFAXINE ER 37.5 MG CAP PO (13:14)
--- NOTE | 2025-10-30 14:32 | PT.IIE ---
Current Diagnoses Unspecified fracture of left femur, initial encounter for closed fracture (10/28/25) Surgery Performed Operation Date: 10/29/25 15:15 Actual Procedures p Hip Hemiarthroplasty(Right) - Branden Medina MD Surgical History (Last Reviewed 10/28/25 @ 20:19 by Enriqueta Flores MD) History of shoulder surgery Hx of prostatectomy Hx of sinus surgery S/P excision of vocal cord nodule Medical History (Last Reviewed 10/28/25 @ 20:19 by Enriqueta Flores MD) Biochemically recurrent malignant neoplasm of prostate Elective surgery Elevated cholesterol GERD (gastroesophageal reflux disease) Gout H/O ETOH abuse History of malignant neoplasm of prostate HTN (hypertension) Prostate cancer metastatic to intrapelvic lymph node Physical Therapy Inpatient Evaluation/Re-Eval M1 PT IP Prior Functional Status Start: 10/30/25 15:04 Freq: Status: Active Protocol: Document 10/30/25 15:05 NW (Rec: 10/30/25 15:21 NW [id number]) Medical Review Prior Functional Status Medical History Yes Reviewed Communication I Mobility and Gait Pt able to walk 30-40 ft with a cane. Activities of Daily Prior pt able to do ADL's on his own and some days Living and IADL's needing assist from his for LB dressing needs. Social History Household Members spouse Living Arrangements House Number of Floors ( Two Floors Floors) Number of Stairs To 3 steps with right rail from the front and 2 steps from Enter/Railing? the back. Pt has 15 steps with right rail to the bedroom. Home Environment Standard Height Toilet,Tub/Shower Home Equipment Straight Cane M2 PT-IP Current Condition Start: 10/30/25 15:04 Freq: Status: Active Protocol: Document 10/30/25 15:05 NW (Rec: 10/30/25 15:21 NW [id number]) Physical Therapy Current Condition Current Condition Evaluation Date 10/30/25 Treatment Diagnosis R hip hemiarthroplasty post GLF Onset Date 10/28/25 M3 PT-IP Subjective Start: 10/30/25 15:04 Freq: Status: Active Protocol: Document 10/30/25 15:05 NW (Rec: 10/30/25 15:21 NW [id number]) Subjective Physical Therapy Visit Type Type Initial Evaluation Visit Start Time 14:02 Visit Stop Time 14:55 Number of [employer]ER Visits 0 Physical Therapy Visit Comments Patient Comments Pt is found resting supine in bed and is concerned to move due to the pain. Pt is agreeable to try for the evaluation. Patient Goals Return to PLOF. Therapy Pain Assessment Location Right hip Intensity 6 Scale Used Numeric (0 - 10) Description Aching Pain Management Modification of Treatment,Timing of Activity with Techniques Medications M4 PT-IP Mobility and Gait Start: 10/30/25 15:04 Freq: Status: Active Protocol: Document 10/30/25 15:05 NW (Rec: 10/30/25 15:21 NW [id number]) PT-Bed Mobility Assessment Supine to Sit Supine to Sit Minimal Assistance Sit to Supine Sit to Supine Moderate Assistance Scooting Scooting to Edge of Contact Guard Assistance Bed PT-Transfer Assessment Sit to and From Stand Sit to and from Minimal Assistance,1 Person Assistance,Use of Upper Stand Extremities Equipment Transfer Assistive Gait Belt,Front Wheeled Walker Device Transfers Transfer Destination Bed Transfer Technique Stand Step Pivot Transfer Ability Level of Assist Contact Guard Assistance Comments Mobility Comments Cues to maintain posterior MARC precautions with fair carryover with continued practice. With bed mobility pt requires assistance for LE management. Upon first STS edge of bed pt is modA, second is min/CGA. Pt is able to perform lateral stepping to R 2 ft at edge of bed for repositioning with use of FWW and UE at CGA. Vitals remain WFL. Gait Assessment Comments Gait Comments Not able today. Stair Climbing Assessment Comments Stair Climbing DNT Comments PT-Balance Assessment Sitting Balance and Reactions Static Sitting Normal Balance Ability Dynamic Sitting Good Balance Ability Standing Balance and Reactions Static Standing Fair Balance Ability Dynamic Standing Poor Balance Ability Device Used FWW Functional Assessments Other Functional Tests standing tolerance < 1 minute with UE fatigue and Performed increase in pain. M5 PT-IP Objective Assessments Start: 10/30/25 15:04 Freq: Status: Active Protocol: Document 10/30/25 15:05 NW (Rec: 10/30/25 15:21 NW [id number]) Orientation Orientation/Cognition Level of Alertness Alert Orientation Name,Age,Birthday,Month,Date,Year,Day of Week,Place, Situation Gross Range of Motion Upper Extremity ROM Assessment Within Functional Limits Lower Extremity ROM Assessment Right Impaired Impairments post op pain limited Strength Lower Extremity Strength Assessment Right Impaired Hip 2+/5 flex Knee 3/5 ext Ankle WFL Sensation Assessment Sensation Gross Sensation WNL Muscle Tone Muscle Tone WNL Yes M6 PT-IP Treatment Start: 10/30/25 15:04 Freq: Status: Active Protocol: Document 10/30/25 15:05 NW (Rec: 10/30/25 15:21 NW [id number]) Physical Therapy Treatment Education Education Provided Precautions,Weight Bearing Status,Post-Op Packet,Safety Other Treatments Other Treatment Recommendation to continue to get up with staff for bed Performed side commode and sit edge of bed for meals. M7 PT-IP Assessment and Plan Start: 10/30/25 15:04 Freq: Status: Active Protocol: Document 10/30/25 15:05 NW (Rec: 10/30/25 15:21 NW [id number]) PT Summary Assessment and Plan Potential Rehabilitation Excellent Potential Status of Condition Stable at Evaluation Summary Impairments Pain,ROM,Strength,Balance,Bed Mobility,Transfers,Gait, Activity Tolerance Progress Towards Progressing Toward Goals Goals Assessment Summary Clay is a 75 yr old male admitted after a GLF with elevated blood alcohol with confirmed R femur fracture requiring surgical intervention of hemiarthroplasty on 10/29/25. Pt at baseline is a limited ambulator with single point cane and lives with spouse in a 2 story home with 15 steps to get to a bedroom. Today pt has elevated pain, but is agreeable to trial mobility. Pt is min/modA for bed mobility for LE management and Kate /CGA for STS with cues for precaution management. Pt is able to take lateral stepping with FWW at edge of bed at CGA and then requests to discontinue further mobility. Recommending SNF upon discharge as pt is not at prior level of function and spouse assistance is unlikely due to pts size and would be unsafe to return to prior living arrangement. Goals Bed Mobility Goal Independent Transfer Goal Standby Assistance Gait Goal Standby Assistance Gait Distance 30 Other Goals Stair navigation 12 steps with unilateral railing on R. Days to Meet Goals 5 Frequency of Treatment Frequency Of Once a Day Treatment Treatment Plan Physical Therapy Bed Mobility Training,Transfer Training,Gait Training, Treatment Plan Therapeutic Exercise,Balance Retraining,Discharge Planning,Neuromuscular Re-ed Precautions Posterior Hip No Hip Flexion > 90 degrees,No Hip Internal Rotation,No Precautions Hip Adduction Other Precautions falls risk Weight Bearing Status Weight Bearing Weight Bear as Tolerated Status Recommendations To Nursing Amount of Assist 1 Person Assist Needed Discharge Recommendations PT Discharge SNF Rehab Recommendations Equipment Needed for Bariatric FWW, bed side commode Home Before Discharge Transportation Needs Wheelchair/Cabulance at Discharge - PT assist 1
--- NOTE | 2025-10-30 14:35 | OT.IP.EVAL ---
Current Diagnoses Unspecified fracture of left femur, initial encounter for closed fracture (10/28/25) Surgery Performed Operation Date: 10/29/25 15:15 Actual Procedures p Hip Hemiarthroplasty(Right) - Branden Medina MD Past Medical History (Last Reviewed 10/28/25 @ 20:19 by Enrqiueta Flores MD) Biochemically recurrent malignant neoplasm of prostate Elective surgery Elevated cholesterol GERD (gastroesophageal reflux disease) Gout H/O ETOH abuse History of malignant neoplasm of prostate HTN (hypertension) Prostate cancer metastatic to intrapelvic lymph node Surgical History (Last Reviewed 10/28/25 @ 20:19 by Enriqueta Flores MD) History of shoulder surgery Hx of prostatectomy Hx of sinus surgery S/P excision of vocal cord nodule Occupational Therapy Inpatient Evaluation/Re-Eval M1 OT IP Prior Functional Status Start: 10/30/25 14:39 Freq: Status: Active Protocol: Document 10/30/25 14:39 CCC (Rec: 10/30/25 14:56 CCC Desktop) Medical Review Prior Functional Status Communication I Mobility and Gait Pt able to walk 30-40 ft with a cane. Activities of Daily Prior pt able to do ADL's on his own and some days Living and IADL's needing assist from his for LB dressing needs. Social History Household Members spouse Living Arrangements House Number of Floors ( Two Floors Floors) Number of Stairs To 3 steps with right rail from the front and 2 steps from Enter/Railing? the back. Pt has 15 steps with right rail to the bedroom. Home Environment Standard Height Toilet,Tub/Shower Home Equipment Straight Cane M2 OT-IP Current Condition Start: 10/30/25 14:39 Freq: Status: Active Protocol: Document 10/30/25 14:39 CCC (Rec: 10/30/25 14:56 CCC Desktop) Occupational Therapy Current Condition Current Condition Evaluation Date 10/30/25 Treatment Diagnosis S/P right hemiarthroplasty, posterior precautions Diagnosis Onset Date 10/29/25 Post Operative Precautions Posterior Hip No Hip Flexion > 90 degrees,No Hip Internal Rotation,No Precautions Hip Adduction Weight Bearing Status Weight Bearing Weight Bear as Tolerated Status M3 OT- IP Subjective and Pain Start: 10/30/25 14:39 Freq: Status: Active Protocol: Document 10/30/25 14:39 CCC (Rec: 10/30/25 14:56 CCC Desktop) OT- Subjective Occupational Therapy Visit Type Type Initial Evaluation Visit Start Time 09:00 Visit Stop Time 14:35 Notes Pt seen from [id number] and [id number]. Occupational Therapy Visit Comments Patient Comments Pt agreed to get up. Patient/Caregiver TO get better. Goals OT Pain Assessment Pain When Pain Assessed At Rest Pain Present Pain Present Pain Reported Location Right hip Intensity 5 Scale Used Numeric (0 - 10) M4 OT- IP ADL's Start: 10/30/25 14:39 Freq: Status: Active Protocol: Document 10/30/25 14:39 [facility] (Rec: 10/30/25 14:56 [facility] Desktop) OT SOW-Gqbx-Hhfizuw Comments OT Self-Feeding Not at meal time. Comments OT ADL-Grooming Comments OT Grooming Comments Not performed. OT ADL-Oral Care Comments Oral Care Comments Not performed. OT ADL-Dressing General Eval Lower Body Dressing Total Assistance Ability Areas Needing Socks,Shoes Assistance Comments OT Dressing Comments Spoke on LB dressing equipment to assist with needs so able to follow his hip precautions. OT ADL-Toileting Comments OT Toileting Pt not having to go. Pt will benefit from a BSC. Comments OT ADL-Bathing Comments OT Bathing Comments Pt states his bathrooms are too small and will probably just sponge off. M5 OT- IP IADL's Start: 10/30/25 14:39 Freq: Status: Active Protocol: Document 10/30/25 14:39 [facility] (Rec: 10/30/25 14:56 [facility] Desktop) OT-Instrumental Activities of Daily Living Home Safety Awareness Awareness of Need Good Awareness for Assistance at Home Meal Preparation Meal Preparation Caregiver Provides Assist Wrapper Hands Sprayer Wrapper Hands Sprayer Caregiver Provides Assist M6 OT- IP Functional Cognition Start: 10/30/25 14:39 Freq: Status: Active Protocol: Document 10/30/25 14:39 [facility] (Rec: 10/30/25 14:56 [facility] Desktop) Cognitive Factors Limiting Selfcare Function Cognitive Ability Level of Alertness Alert Patient Orientation Name,Age,Birthday,Month,Date,Year,Day of Week,Place, Situation Attention Span Capable of Focused Attention,Capable of Sustained Ability Attention Ability to Follow Able to Follow One Step Commands Commands Safety Awareness Decreased Recall of Precautions,Decreased Ability to Apply Precautions Cognitive Comments Cognitive Assessment Pt able to follow commands. Pt will benefit from Comments continued education of hip precautions for ADL and mobility needs. OT- Vision and Hearing OT- Hearing Assessment OT- Hearing WFL Assessment OT- Vision Assessment Visual Attentiveness WFL M7 OT- IP Mobility and Balance Start: 10/30/25 14:39 Freq: Status: Active Protocol: Document 10/30/25 14:39 [facility] (Rec: 10/30/25 14:56 [facility] Desktop) OT- Bed Mobility Assessment Supine to Sit Supine to Sit Assist Minimal Assistance Sit to Supine Sit to Supine Assist Moderate Assistance Scooting Scooting to Edge of Minimal Assistance Bed OT-Transfer Assessment Sit to and From Stand Sit to and from Minimal Assistance,Moderate Assistance Stand Technique Transfer Technique Stand Step Pivot Devices Transfer Assistive Gait Belt,Front Wheeled Walker Devices Comments Mobility Comments Assist to move his RLE to the edge of the bed. ERIK to stand from high surface and able to heavily use BUE on the armrests of the bariatric FWW so able to take side step to the head of the bed. Pt initially needing his right knee to be blocked for stability. Pt's BP supine 157/80, sitting 179/89, and after 166/89. VC to slide his RLE forwards prior to standing and sitting up from surfaces. OT- Balance Assessment Sitting Balance and Reactions Static Sitting Normal Balance Ability Dynamic Sitting Good Balance Ability Standing Balance and Reactions Static Standing Fair Balance Ability Dynamic Standing Fair Balance Ability Comments Other Balance Tests/ Pt tends to lean to the left due to pain on right hip. Deviations/Treatment : M8 OT- IP Objective Assessments Start: 10/30/25 14:39 Freq: Status: Active Protocol: Document 10/30/25 14:39 [facility] (Rec: 10/30/25 14:56 [facility] Desktop) OT Gross Range of Motion Upper Extremity Range of Motion Assessment Within Functional Limits OT Strength Upper Extremity Strength Assessment Within Functional Limits Comments Strength Comments Grossly WFL. M9 OT- IP Assessment and Plan Start: 10/30/25 14:39 Freq: Status: Active Protocol: Document 10/30/25 14:39 [facility] (Rec: 10/30/25 14:56 [facility] Desktop) OT Summary Assessment and Plan Potential Rehabilitation Good Potential Analytic Complexity Moderate at Evaluation Summary OT Impairments Pain,Strength,Balance,Functional Mobility,Grooming, Dressing,Toileting,Bathing,Toilet Transfers,Shower Transfers,Activity Tolerance Progress Towards Progressing Toward Goals,Slow Progress due to Pain Goals Assessment Summary Pt MOD complexity and main barriers are steps, pain, and will benefit from continued practice to incorporate his hip precautions for ADL and mobility needs. Pt to go to skilled rehab when medically stable. Goals Self-Feeding Goal Independent Grooming Goal Independent Dressing Goal Minimal Assistance Toileting Goal Independent Bathing Goal Minimal Assistance Toilet Transfer Goal Independent Shower Transfer Goal Standby Assistance Days to Meet Goals 15 Frequency of Treatment Other frequency 5x/week Treatment Plan OT Treatment Plan ADL Training,Functional Mobility,Patient/Family Education,Discharge Planning Discharge Recommendations OT Discharge SNF Rehab Recommendations Transportation Needs Wheelchair/Cabulance at Discharge
--- NOTE | 2025-10-30 15:26 | PM.PN.1 ---
Subjective Subjective Date Patient Seen: 10/30/25 Interval history: This is a 75 years old male with hypertension, hyperlipidemia, gout, prostate cancer, GERD, alcohol abuse, DVT on Eliquis who presented to the ER with a ground-level fall at the bar where he had been drinking Vodka, landing on his right hip and immediately after that experiencing severe hip pain. The patient was drinking alcohol so had a level of 159. Denies any other symptoms. The patient was diagnosed with left leg DVT in March after he had an abdominal surgery and was placed on Eliquis. Laboratory unremarkable except for a potassium of 3.0, now up to 3.5. X-ray of the hip shows minimally displaced fracture of the right proximal femur. Head CT unremarkable. 10/30: Postop day 1. Right hip hemiarthroplasty. Hemoglobin 10.1. BNP and liver function tests normal. Magnesium 1.5 so we will be given a dose of IV magnesium in addition to daily oral magnesium. His right foot has been making restless type movements. Consider starting on ropinirole. RLS maybe anemia related. Alert and oriented x3. No apparent distress. He recognizes me from yesterday. Heart is regular rate and rhythm without murmur. Lungs are clear to auscultation bilaterally. Extremities have no ankle edema. There is a restless type repetitive movement of the right foot noted. This does not appear to be myoclonus or seizures. Assessment & Plan Left femoral fracture after ground-level fall. -resume diet -resume Eliquis for h/o DVT -weightbearing and PT/OT per Orthopedics. -Pain medications as needed -Bowel regimen while on narcotics -Fall precaution -PT and OT evaluation for discharge Hypertension. Resume lisinopril. Hydralazine as needed. Prostate cancer. Restart medication including prednisone Gout. Restart allopurinol. Hypokalemia/hypomagnesemia -replenish potassium/magnesium. -Recheck electrolytes daily -Depending on laboratory values any electrolyte disbalance need to be appropriately replenished and corrected. Alcohol abuse with intoxication. -He states that he has abstained for 1 or 2 weeks at a time without any withdrawal symptoms. -continue CIWA and monitor for any withdrawal symptoms. -Venlafaxine Resume home Eliquis for recurrent DVT prevention Exam Vital Signs (past 8 hours): - 10/30/25 08:00 10/30/25 12:00 Temperature 97.8 F 98.2 F Pulse Rate 68 80 Respiratory Rate 17 17 Blood Pressure 159/78 H 129/63 Pulse Oximetry 92 91 Oxygen Flow Rate 0 0 Oxygen Delivery Method Room Air Oxygen Flow Rate 0 Objective Labs 10/30/25 06:15 10/30/25 06:15 Labs: Laboratory Results - last 24 hr 10/30/25 06:15 WBC 9.6 D RBC 3.02 L Hgb 10.1 L Hct 29.3 L MCV 97.2 MCH 33.6 MCHC 34.5 RDW 12.9 Plt Count 185 Neut % (Auto) 85.2 H Lymph % (Auto) 8.3 L [place] % (Auto) 6.1 Eos % (Auto) 0.0 L Baso % (Auto) 0.4 Neut # (Auto) 8200 H Lymph # (Auto) 800 L [place] # (Auto) 600 Eos # (Auto) 0 Baso # (Auto) 0 Sodium 137 Potassium 3.9 Chloride 108 H Carbon Dioxide 23 BUN 10 Creatinine 0.57 L Estimated GFR > 60 BUN/Creatinine Ratio 17.5 Glucose 149 H Calcium 8.5 Magnesium 1.5 L Total Bilirubin 0.4 AST 23 ALT 15 Alkaline Phosphatase 79 Total Protein 5.3 L Albumin 2.9 L Globulin 2.4 Albumin/Globulin Ratio 1.2 PFSH Medical History Prostate cancer metastatic to intrapelvic lymph node History of malignant neoplasm of prostate Biochemically recurrent malignant neoplasm of prostate H/O ETOH abuse Elective surgery Gout GERD (gastroesophageal reflux disease) Elevated cholesterol HTN (hypertension) Surgical History Hx of sinus surgery History of shoulder surgery S/P excision of vocal cord nodule Hx of prostatectomy Family History Brother Cancer Gout Mother Stroke Social History marital status: number of children: 5 household members: spouse Previous occupational history: [employer] retired [employer] Smoking Status: Current every day smoker Tobacco: How many years used: 40 alcohol intake: current caffeine: Yes additional social history: The patient admits to smoking cigarettes but does not drink alcohol or use any drugs. Assessment & Plan Time-Based Coding :: [TOTAL MINUTES] spent with patient and on the chart (including review of chart, obtaining history, exam, reviewing outside data, placing orders, documenting exam and treatment plan, and counseling patient) on [DATE]. Quality VTE Deep Vein Thrombosis/Pulmonary Embolism Present on Admission: No
--- NOTE | 2025-10-30 16:25 | CM.DANOTE ---
DCP Assessment Note: Pt is a 75yo male, resident of [place], is admitted for a fracture of left femur after a fall, he is s/p R hip Hemiarthroplasty. Pt lives in a house with his , Kelley. Pt's Primary Care Provider is Dr. Ashok Marie and insurance is [employer] Medicare. Reviewed chart and discussed with multidisciplinary team pt's medical status and initial discharge needs. Per Provider, pending PT/OT recommendations for discharge coordination. Per PT/OT, recommending SNF Rehab before home. DCP met w/patient at bedside; introduced self and role. Patient was found in bed, alert and oriented, cooperative with assessment. Pt confirmed living situation and good support in , who was also at bedside. Pt expressed preference in SNF Rehab in [place], agreeable to referral to be sent to [facility]. Pt has no history of SNF Rehab or HH. 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 Will need [employer] insurance authorization. PROFESSOR OF EARLY CHILDHOOD EDUCATION initiated PASRR, will need MD signature for hosp exempt discharge due to Venlafaxine Rx. Plan: Anticipating discharge to SNF Rehab, pending acceptance and [employer] insurance auth. CM team will follow closely for coordination of discharge plans. BRIAN Stokes Discharge Planning/Care Management CM Discharge Assessment Start: 10/29/25 03:39 Freq: Status: Active Protocol: Document 10/30/25 16:21 MW (Rec: 10/30/25 16:24 MW [id number]) Discharge Planning Assessment Assigned Discharge ROYA [place] [employer] Provider Dr[facility] Ash[facility] Kelley, Spouse Designee Name Contact Information [phone] Advance Directives? No Advance Directives No on File History Provided By Patient,Medical Record Has Patient been No admitted in last 30 days? Prior Living House Arrangements Household Members spouse Type of Drives own vehicle transporation used prior to admit Independent with ADL Yes 's Is patient alert and Yes oriented? DME Already Rented / Cane Owned Patient/Family Custodial Facility Preference Discharge Plan Custodial Facility Transportation Facility vs. Family Arrangement Referrals Initiated Custodial If patient plan is Yes SNF: Has PASSR been completed? Medicare Choice List Yes Provided Medicare choice list patient,family reviewed on electronic tablet with SNF/HH Preference [facility] Has Agency SNF been Yes contacted Review Status In Process Please Provide Date 10/30/25 Initial DC Assessment Was Performed Next Review Type Continued Stay Review
[2025-10-31 04:00] VITALS: BP 133/74; PULSE 74; RESP 16; TEMP 36; O2SAT 94
[2025-10-31 08:00] VITALS: BP 151/76; PULSE 84; RESP 15; TEMP 36.6; O2SAT 95
[2025-10-31] MEDS: MAGNESIUM OXIDE 400 MG TABLET PO (08:18)
[2025-10-31] MEDS: MULTIVITAMIN 1 TABLET 1 TAB PO (08:18)
[2025-10-31] MEDS: DOCUSATE 100 MG CAPSULE PO ×2 (08:19→20:40)
[2025-10-31] MEDS: APIXABAN 5 MG TABLET PO ×2 (08:19→20:40)
--- NOTE | 2025-10-31 08:22 | P.PN_ITS ---
Subjective Subjective Date Patient Seen: 10/31/25 Interval history: This is a 75 years old male with hypertension, hyperlipidemia, gout, prostate cancer, GERD, alcohol abuse, DVT on Eliquis who presented to the ER with a ground-level fall at the bar where he had been drinking Vodka, landing on his right hip and immediately after that experiencing severe hip pain. The patient was drinking alcohol so had a level of 159. Denies any other symptoms. The patient was diagnosed with left leg DVT in March after he had an abdominal surgery and was placed on Eliquis. Laboratory unremarkable except for a potassium of 3.0, now up to 3.5. X-ray of the hip shows minimally displaced fracture of the right proximal femur. Head CT unremarkable. 10/30: Postop day 1. Right hip hemiarthroplasty. Hemoglobin 10.1. BNP and liver function tests normal. Magnesium 1.5 so we will be given a dose of IV magnesium in addition to daily oral magnesium. His right foot has been making restless type movements. Consider starting on ropinirole. RLS maybe anemia related. 10/31: Postop day 2. Right hip hemiarthroplasty. He describes a ?bad night? with right foot cramps. We will start him on Robaxin for that. Electrolytes a re all normal. The hemoglobin is 9.7. He is pending a possible discharge to [facility] f[facility] facility soon. Alert and oriented x3. Quite distressed by the right foot cramping. Heart is regular rate and rhythm without murmur. Lungs are clear to auscultation bilaterally. Extremities have no ankle edema. Assessment & Plan Left femoral fracture after ground-level fall. -Eliquis for h/o DVT -weightbearing and PT/OT per Orthopedics. -Pain medications as needed -Bowel regimen while on narcotics -Fall precaution -PT and OT evaluation for discharge -methocarbamol for right foot cramps. Electrolytes normal. Hypertension. Resume lisinopril. Hydralazine as needed. Prostate cancer. Continue prednisone Gout. Continue allopurinol. Hypokalemia/hypomagnesemia -replenish potassium/magnesium. Resolved -Recheck electrolytes daily Alcohol abuse with intoxication. -He states that he has abstained for 1 or 2 weeks at a time without any withdrawal symptoms. -continue CIWA and monitor for any withdrawal symptoms. -Venlafaxine Resume home Eliquis for recurrent DVT prevention Exam Vital Signs (past 8 hours): - 10/31/25 04:00 Temperature 96.8 F L Pulse Rate 74 Respiratory Rate 16 Blood Pressure 133/74 Pulse Oximetry 94 Oxygen Flow Rate 0 Oxygen Delivery Method Room Air Oxygen Flow Rate 0 Objective Labs 10/31/25 09:08 10/31/25 09:08 [facility] Medical History Prostate cancer metastatic to intrapelvic lymph node History of malignant neoplasm of prostate Biochemically recurrent malignant neoplasm of prostate H/O ETOH abuse Elective surgery Gout GERD (gastroesophageal reflux disease) Elevated cholesterol HTN (hypertension) Surgical History Hx of sinus surgery History of shoulder surgery S/P excision of vocal cord nodule Hx of prostatectomy Family History Brother Cancer Gout Mother Stroke Social History marital status: number of children: 5 household members: spouse Previous occupational history: [employer] Smoking Status: Current every day smoker Tobacco: How many years used: 40 alcohol intake: current caffeine: Yes additional social history: The patient admits to smoking cigarettes but does not drink alcohol or use any drugs. Assessment & Plan Time-Based Coding :: [TOTAL MINUTES] spent with patient and on the chart (including review of chart, obtaining history, exam, reviewing outside data, placing orders, documenting exam and treatment plan, and counseling patient) on [DATE]. Quality VTE Deep Vein Thrombosis/Pulmonary Embolism Present on Admission: No
[2025-10-31 09:38] LABS: Add Manual Diff / Slide Review NO; Hematocrit 27.1 % (41-53); Hemoglobin 9.4 g/dL (13.5-17.5); Lymphocytes Absolute Auto 900 /uL (1100-4500); Mean Corpuscular HGB Conc 34.6 % (30-36); Mean Corpuscular Hemoglobin 33.7 PG (26-34); Mean Corpuscular Volume 97.3 fL (80-100); Platelet Count 176 X10^3/uL (150-400)
[2025-10-31 09:57] LABS: Alanine Aminotransferase 12 IU/L (<50); Albumin 2.7 g/dL (3.5-5.0); Albumin Globulin Ratio 1.2 (1.0-2.8); Alkaline Phosphatase 74 U/L (38-126); Blood Urea Nitrogen 10 mg/dL (9-20); Calcium 8.9 mg/dL (8.4-10.2); Carbon Dioxide 25 mmol/L (22-32); Chloride 106 mmol/L (98-107); Estimated Glomerular Filt Rate > 60 mL/min (>60); Globulin 2.3 g/dL (1.7-4.1); Glucose 120 mg/dL (70-99); HEMOLYSIS < 15 (0-50); Magnesium 1.7 mg/dL (1.6-2.3); Potassium 3.5 mmol/L (3.4-5.1); Sodium 136 mmol/L (137-145); Total Protein 5.0 g/dL (6.3-8.2)
[2025-10-31] MEDS: ABIRATERONE 500 MG 1000 EACH PO (10:07)
[2025-10-31] MEDS: POTASSIUM CHLORIDE 20 MEQ TAB 40 MEQ PO (11:31)
[2025-10-31] MEDS: VENLAFAXINE ER 37.5 MG CAP PO (13:05)
--- NOTE | 2025-10-31 13:05 | CM.DPC ---
DCP SNF Planning: Per MD, pt making progess and likely ready to d/c to SNF once auth secured. SW spoke to [facility] admissions and they reviewed referral and confirm they can accept if pt agreeable not to smoke at their facility. Met bedside with pt and updated on SV acceptance if he's agreeable to no smoking policy and pt very pleasant and confirms no problem as he has cut back and barely smoking anymore and has not even needed nicotine patch while admitted. Updated pt that waiting for insurance auth for SNF for possible d/c tomrorow Fri or Sat pending auth. Pt very agreeable and appreciative. [facility] confirms they will submit insurance auth today 10/31. ROYA Arias
--- NOTE | 2025-10-31 13:06 | PM.PNPO.1 ---
Subjective Subjective Date Patient Seen: 10/31/25 Interval history: Clay is a pleasant 75-year-old male who is seen today on POD#2 s/p R Armani hip arthroplasty by Dr. Medina. He tells me this afternoon that he has not worked w/ PT yet today but was able to get up w/ them yesterday, describes moderate pain but states the RLE spasms have been most bothersome to him. He states he was given a muscle relaxant last night which helped. He lives at home w/ his normally but plans to d/c to [facility] for initial rehab. Denies any weakness or numbness of the RLE. No SOB, fever, chills. Exam Vital Signs (past 8 hours): - 10/31/25 08:00 Temperature 97.9 F Pulse Rate 84 Respiratory Rate 15 Blood Pressure 151/76 H Pulse Oximetry 95 Oxygen Flow Rate 0 Oxygen Delivery Method Room Air Oxygen Flow Rate 0 Narrative Exam Narrative: Patient lying comfortably in bed during our interview today. No acute distress. AOx3. Grossly normal alignment of the RLE w/ mild-moderate swelling extending throughout the RLE. 5/5 strength with DF, PF, EHL bilaterally. Gross sensation intact throughout bilateral lower extremities. Calves soft and non-tender bilaterally. SCDs are on and functioning. Post-surgical dressing/Aquacel dressing dry and intact over the right hip with mild-moderate central drainainge. Const General: cooperative and comfortable Objective Labs 10/31/25 09:08 10/31/25 09:08 Labs: Laboratory Results - last 24 hr 10/31/25 09:08 WBC 6.9 RBC 2.79 L Hgb 9.4 L Hct 27.1 L MCV 97.3 MCH 33.7 MCHC 34.6 RDW 12.7 Plt Count 176 Neut % (Auto) 78.1 H Lymph % (Auto) 13.5 L [place] % (Auto) 7.6 Eos % (Auto) 0.5 L Baso % (Auto) 0.3 Neut # (Auto) 5400 Lymph # (Auto) 900 L [place] # (Auto) 500 Eos # (Auto) 0 Baso # (Auto) 0 Sodium 136 L Potassium 3.5 Chloride 106 Carbon Dioxide 25 BUN 10 Creatinine 0.56 L Estimated GFR > 60 BUN/Creatinine Ratio 17.9 Glucose 120 H Calcium 8.9 Magnesium 1.7 Total Bilirubin 0.6 AST 18 ALT 12 Alkaline Phosphatase 74 Total Protein 5.0 L Albumin 2.7 L Globulin 2.3 Albumin/Globulin Ratio 1.2 PFSH Medical History Prostate cancer metastatic to intrapelvic lymph node History of malignant neoplasm of prostate Biochemically recurrent malignant neoplasm of prostate H/O ETOH abuse Elective surgery Gout GERD (gastroesophageal reflux disease) Elevated cholesterol HTN (hypertension) Surgical History Hx of sinus surgery History of shoulder surgery S/P excision of vocal cord nodule Hx of prostatectomy Family History Brother Cancer Gout Mother Stroke Social History marital status: number of children: 5 household members: spouse Previous occupational history: [employer] retired [employer] Smoking Status: Current every day smoker Tobacco: How many years used: 40 alcohol intake: current caffeine: Yes additional social history: The patient admits to smoking cigarettes but does not drink alcohol or use any drugs. Assessment & Plan Post-op Postoperative Procedures: Procedures Operation Date: 10/29/25 15:15 Actual Procedure Side Surgeon p Hip Hemiarthroplasty Right Branden Medina MD Postoperative day: 2 Postoperative plan: routine post-op care Postoperative plan narrative: 1) Discharge dispo per primary, likely SNF tomorrow. 2) Continue multimodal pain management with ice to the hip for additional pain control. 3) ASA b.i.d. for DVT prophylaxis. 4) Start outpatient physical therapy to work on range of motion and mobility. WBAT. 5) Keep dressing intact, clean, dry until 2 week postop appointment. No soaking the incision site in pools or tubs. No topical ointments or creams to the incision site. 6) Follow up at [facility] in 2 weeks for a postop appointment and wound check. All patient's questions were answered, they demonstrates understanding and are in agreement with the plan. Call our office if any questions or concerns arise. Time Spent With Patient Time with patient: less than 15 minutes Quality VTE Deep Vein Thrombosis/Pulmonary Embolism Present on Admission: No
[2025-10-31 13:24] VITALS: BP 119/61; PULSE 87; RESP 16; TEMP 36.5; O2SAT 91
--- NOTE | 2025-10-31 14:45 | PT.IPTN ---
Current Diagnoses Unspecified fracture of left femur, initial encounter for closed fracture (10/28/25) Surgery Performed Operation Date: 10/29/25 15:15 Actual Procedures p Hip Hemiarthroplasty(Right) - Branden Medina MD Physical Therapy Treatment Note M2 PT-IP Current Condition Start: 10/30/25 15:04 Freq: Status: Active Protocol: Document 10/30/25 15:05 NW (Rec: 10/30/25 15:21 NW [id number]) Physical Therapy Current Condition Current Condition Evaluation Date 10/30/25 Treatment Diagnosis R hip hemiarthroplasty post GLF Onset Date 10/28/25 M3 PT-IP Subjective Start: 10/30/25 15:04 Freq: Status: Active Protocol: Document 10/31/25 15:45 NW (Rec: 10/31/25 15:56 NW [id number]) Subjective Physical Therapy Visit Type Type Treatment Note Visit Start Time 14:16 Visit Stop Time 14:45 Physical Therapy Visit Comments Patient Comments Pt is having increase pain today secondary to muscle spasm. Feels like he may need to use the restroom. Patient Goals To go to rehab. Therapy Pain Assessment Pain When Pain Assessed At Rest Location Right hip Intensity 8 Description Aching Pain Management Modification of Treatment,Timing of Activity with Techniques Medications M4 PT-IP Mobility and Gait Start: 10/30/25 15:04 Freq: Status: Active Protocol: Document 10/31/25 15:45 NW (Rec: 10/31/25 15:56 NW [id number]) PT-Bed Mobility Assessment Supine to Sit Supine to Sit Moderate Assistance,2 Person Assistance,Head of Bed Elevated Sit to Supine Sit to Supine Moderate Assistance,1 Person Assistance Scooting Scooting to Edge of Contact Guard Assistance Bed PT-Transfer Assessment Sit to and From Stand Sit to and from Contact Guard Assistance,1 Person Assistance,Use of Stand Upper Extremities Equipment Transfer Assistive Gait Belt,Front Wheeled Walker Device Transfers Transfer Destination Bed,Toilet,Bedside Commode Transfer Technique Stand Step Pivot Transfer Ability Level of Assist Minimal Assistance Comments Mobility Comments Cues for MARC hip precautions with functional mobility. Able to demonstrate with transfers after practice. Requires hand rails getting off the bed side commode to assist due to decrease surface height and pts height. CGA from EOB. Gait Assessment Gait Gait Assistance Contact Guard Assist Required: Distance (Feet) 15 Assistive Devices Assistive Device Gait Belt,Standard Walker Gait Deviations General Gait Pattern Antalgic,Decreased Feet Clearance,Flexed Trunk,Step-to Gait Factors Limiting Gait Function Factors Limiting Decreased Strength,Pain Gait Function Comments Gait Comments Cues for AD management and for UE use with a step to gait pattern. PT-Balance Assessment Sitting Balance and Reactions Static Sitting Normal Balance Ability Dynamic Sitting Good Balance Ability Standing Balance and Reactions Static Standing Fair Balance Ability Dynamic Standing Poor Balance Ability Device Used FWW M5 PT-IP Objective Assessments Start: 10/30/25 15:04 Freq: Status: Active Protocol: Document 10/30/25 15:05 NW (Rec: 10/30/25 15:21 NW [id number]) Orientation Orientation/Cognition Level of Alertness Alert Orientation Name,Age,Birthday,Month,Date,Year,Day of Week,Place, Situation Gross Range of Motion Upper Extremity ROM Assessment Within Functional Limits Lower Extremity ROM Assessment Right Impaired Impairments post op pain limited Strength Lower Extremity Strength Assessment Right Impaired Hip 2+/5 flex Knee 3/5 ext Ankle WFL Sensation Assessment Sensation Gross Sensation WNL Muscle Tone Muscle Tone WNL Yes M6 PT-IP Treatment Start: 10/30/25 15:04 Freq: Status: Active Protocol: Document 10/31/25 15:45 NW (Rec: 10/31/25 15:56 NW [id number]) Physical Therapy Treatment Education Education Provided Precautions,Weight Bearing Status,Post-Op Packet,Safety Other Treatments Other Treatment Education on importance of sitting edge of bed for Performed meals secondary to concern to get out of from height. M7 PT-IP Assessment and Plan Start: 10/30/25 15:04 Freq: Status: Active Protocol: Document 10/31/25 15:45 NW (Rec: 10/31/25 15:56 NW [id number]) PT Summary Assessment and Plan Potential Rehabilitation Good Potential Status of Condition Evolving at Evaluation Summary Impairments Pain,ROM,Strength,Bed Mobility,Transfers,Gait,Activity Tolerance Progress Towards Progressing Toward Goals Goals Assessment Summary Pt is able to ambulate today at CGA with step to gait pattern with occasional assistance for AD management. Reviewed hip precautions with fair carryover with practice. Pt becomes emotional with pain, modified treatment to assist with bathroom needs. Continue to recommend SNF as pt has stairs to navigate and is unsafe at current level of function. Goals Bed Mobility Goal Independent Transfer Goal Standby Assistance Gait Goal Standby Assistance Gait Distance 30 Other Goals Stair navigation 12 steps with unilateral railing on R. Days to Meet Goals 5 Frequency of Treatment Frequency Of Once a Day Treatment Treatment Plan Physical Therapy Bed Mobility Training,Transfer Training,Gait Training, Treatment Plan Therapeutic Exercise,Balance Retraining,Discharge Planning,Neuromuscular Re-ed Precautions Posterior Hip No Hip Flexion > 90 degrees,No Hip Internal Rotation,No Precautions Hip Adduction Other Precautions falls risk Weight Bearing Status Weight Bearing Weight Bear as Tolerated Status Recommendations To Nursing Amount of Assist 1 Person Assist Needed Discharge Recommendations PT Discharge SNF Rehab Recommendations Equipment Needed for Bariatric FWW, bed side commode Home Before Discharge Transportation Needs Wheelchair/Cabulance at Discharge
--- NOTE | 2025-10-31 15:12 | OT.IP.TRT ---
Current Diagnoses Unspecified fracture of left femur, initial encounter for closed fracture (10/28/25) Surgery Performed Operation Date: 10/29/25 15:15 Actual Procedures p Hip Hemiarthroplasty(Right) - Branden Medina MD Occupational Therapy Treatment Note M2 OT-IP Current Condition Start: 10/30/25 14:39 Freq: Status: Active Protocol: Document 10/30/25 14:39 [facility] (Rec: 10/30/25 14:56 [facility] Desktop) Occupational Therapy Current Condition Current Condition Evaluation Date 10/30/25 Treatment Diagnosis S/P right hemiarthroplasty, posterior precautions Diagnosis Onset Date 10/29/25 Post Operative Precautions Posterior Hip No Hip Flexion > 90 degrees,No Hip Internal Rotation,No Precautions Hip Adduction Weight Bearing Status Weight Bearing Weight Bear as Tolerated Status M3 OT- IP Subjective and Pain Start: 10/30/25 14:39 Freq: Status: Active Protocol: Document 10/31/25 15:13 [facility] (Rec: 10/31/25 15:19 [facility] Desktop) OT- Subjective Occupational Therapy Visit Type Type Treatment Note Visit Start Time 13:00 Visit Stop Time 13:12 Occupational Therapy Visit Comments Patient Comments Pt too tired to get up as just completed PT prior, but agreed to go over his hip precautions. Patient/Caregiver To get better. Goals OT Pain Assessment Pain When Pain Assessed At Rest Pain Present Pain Present Pain Reported Location Right hip Intensity 6 Scale Used Numeric (0 - 10) Pain Behaviors Facial Grimacing M4 OT- IP ADL's Start: 10/30/25 14:39 Freq: Status: Active Protocol: Document 10/30/25 14:39 [facility] (Rec: 10/30/25 14:56 [facility] Desktop) OT [id number] Comments OT Self-Feeding Not at meal time. Comments OT ADL-Grooming Comments OT Grooming Comments Not performed. OT ADL-Oral Care Comments Oral Care Comments Not performed. OT ADL-Dressing General Eval Lower Body Dressing Total Assistance Ability Areas Needing Socks,Shoes Assistance Comments OT Dressing Comments Spoke on LB dressing equipment to assist with needs so able to follow his hip precautions. OT ADL-Toileting Comments OT Toileting Pt not having to go. Pt will benefit from a BSC. Comments OT ADL-Bathing Comments OT Bathing Comments Pt states his bathrooms are too small and will probably just sponge off. M5 OT- IP IADL's Start: 10/30/25 14:39 Freq: Status: Active Protocol: Document 10/30/25 14:39 [facility] (Rec: 10/30/25 14:56 [facility] Desktop) OT-Instrumental Activities of Daily Living Home Safety Awareness Awareness of Need Good Awareness for Assistance at Home Meal Preparation Meal Preparation Caregiver Provides Assist Ticker Installer Ticker Installer Caregiver Provides Assist M6 OT- IP Functional Cognition Start: 10/30/25 14:39 Freq: Status: Active Protocol: Document 10/31/25 15:13 [facility] (Rec: 10/31/25 15:19 [facility] Desktop) Cognitive Factors Limiting Selfcare Function Cognitive Comments Cognitive Assessment Pt needing reminders to his hip precautions. Able to Comments show pt various scenarios for mobility needs and pt able to identify the correct way to incorporate his hip precautions 60% of the time. Pt will continue to benefit from more practice. M7 OT- IP Mobility and Balance Start: 10/30/25 14:39 Freq: Status: Active Protocol: Document 10/30/25 14:39 [facility] (Rec: 10/30/25 14:56 [facility] Desktop) OT- Bed Mobility Assessment Supine to Sit Supine to Sit Assist Minimal Assistance Sit to Supine Sit to Supine Assist Moderate Assistance Scooting Scooting to Edge of Minimal Assistance Bed OT-Transfer Assessment Sit to and From Stand Sit to and from Minimal Assistance,Moderate Assistance Stand Technique Transfer Technique Stand Step Pivot Devices Transfer Assistive Gait Belt,Front Wheeled Walker Devices Comments Mobility Comments Assist to move his RLE to the edge of the bed. ERIK to stand from high surface and able to heavily use BUE on the armrests of the bariatric FWW so able to take side step to the head of the bed. Pt initially needing his right knee to be blocked for stability. Pt's BP supine 157/80, sitting 179/89, and after 166/89. OT- Balance Assessment Sitting Balance and Reactions Static Sitting Normal Balance Ability Dynamic Sitting Good Balance Ability Standing Balance and Reactions Static Standing Fair Balance Ability Dynamic Standing Fair Balance Ability Comments Other Balance Tests/ Pt tends to lean to the left due to pain on right hip. Deviations/Treatment : M8 OT- IP Objective Assessments Start: 10/30/25 14:39 Freq: Status: Active Protocol: Document 10/30/25 14:39 [facility] (Rec: 10/30/25 14:56 [facility] Desktop) OT Gross Range of Motion Upper Extremity Range of Motion Assessment Within Functional Limits OT Strength Upper Extremity Strength Assessment Within Functional Limits Comments Strength Comments Grossly WFL. M9 OT- IP Assessment and Plan Start: 10/30/25 14:39 Freq: Status: Active Protocol: Document 10/31/25 15:13 [facility] (Rec: 10/31/25 15:19 [facility] Desktop) OT Summary Assessment and Plan Potential Rehabilitation Good Potential Analytic Complexity Moderate at Evaluation Summary OT Impairments Pain,Strength,Balance,Functional Mobility,Grooming, Dressing,Toileting,Bathing,Toilet Transfers,Shower Transfers,Activity Tolerance Progress Towards Progressing Toward Goals,Slow Progress due to Pain Goals Assessment Summary Pt to go to skilled rehab when medically stable. Pt needing cues to help incorporate his hip precautions for mobility needs. Able to talk about various scenarios and what to do to be able to incorporate his hip precautions.Pt was able to walk to and from the bathroom with PT just prior. Pt is very cooperative and motivated to get better. Goals Self-Feeding Goal Independent Grooming Goal Independent Dressing Goal Minimal Assistance Toileting Goal Independent Bathing Goal Minimal Assistance Toilet Transfer Goal Independent Shower Transfer Goal Standby Assistance Days to Meet Goals 15 Frequency of Treatment Other frequency 5x/week Treatment Plan OT Treatment Plan ADL Training,Functional Mobility,Patient/Family Education,Discharge Planning Other Treatment Practice LBB dressing equipment. Recommendations and Next Treatment Focus Discharge Recommendations OT Discharge SNF Rehab Recommendations Transportation Needs Wheelchair/Cabulance at Discharge
[2025-10-31 17:00] VITALS: BP 134/66; PULSE 89; RESP 14; TEMP 36; O2SAT 92
--- NOTE | 2025-10-31 17:13 | DIET.CONS ---
Dietary Consultation Note Admission Date: 10/28/2025 22:37 Assessment: 75 y M admitted for hip fracture. Dietitian screened for low MNA score. EMR reviewed. No weight loss. Pt is eating at meal times per RN. BMI appropriate for age. Ht: 195.58 cm Wt: 99.79 kg BMI: 26.1 UBW: 101.5 kg on 03/23/25, 95 kg on 06/24/25 Last BM: 10/28/25 (10/29/25 03:39) MNA: 10 Osorio Score: 19 Diet: 10/29/25 Dinner General (Regular) Diet Diet Modifications: Food Texture: Level 7 - Regular Liquid Consistency: Level 0 - Thin Labs: RBC 2.79 X10^6/uL (4.5-5.9) L 10/31/25 09:08 Hgb 9.4 g/dL (13.5-17.5) L 10/31/25 09:08 Hct 27.1 % (41-53) L 10/31/25 09:08 Creatinine 0.56 mg/dL (0.66-1.25) L 10/31/25 09:08 NT-Pro-B Natriuret Pep 316 pg/mL (<450) 10/28/25 20:00 Pt to d/c to SNF. No nutrition concerns at this time. Electronically Signed by: Camila Mayen 10/31/25 17:13 Clinical Dietitian [address] [address]
[2025-10-31 21:00] VITALS: BP 127/75; PULSE 80; RESP 16; TEMP 35.6; O2SAT 93
[2025-10-31 23:00] VITALS: BP 133/73; PULSE 83; RESP 16; TEMP 35.7; O2SAT 91
[2025-11-01 06:00] VITALS: BP 138/68; PULSE 80; RESP 16; TEMP 36.1; O2SAT 98
[2025-11-01 07:32] LABS: Blood Urea Nitrogen 9 mg/dL (9-20); Calcium 9.1 mg/dL (8.4-10.2); Carbon Dioxide 26 mmol/L (22-32); Chloride 106 mmol/L (98-107); Estimated Glomerular Filt Rate > 60 mL/min (>60); Glucose 112 mg/dL (70-99); HEMOLYSIS < 15 (0-50); Magnesium 1.9 mg/dL (1.6-2.3); Potassium 4.0 mmol/L (3.4-5.1); Sodium 134 mmol/L (137-145)
[2025-11-01 08:00] VITALS: BP 144/77; PULSE 84; RESP 16; TEMP 36.5; O2SAT 98
[2025-11-01] MEDS: ACETAMINOPHEN 325 MG TABLET 650 MG PO ×2 (08:12→21:02)
[2025-11-01] MEDS: DOCUSATE 100 MG CAPSULE PO ×2 (08:12→21:03)
[2025-11-01] MEDS: MULTIVITAMIN 1 TABLET 1 TAB PO (08:13)
[2025-11-01] MEDS: MAGNESIUM OXIDE 400 MG TABLET PO (08:13)
[2025-11-01] MEDS: APIXABAN 5 MG TABLET PO ×2 (08:13→21:03)
--- NOTE | 2025-11-01 09:43 | PT.IPTN ---
Current Diagnoses Unspecified fracture of left femur, initial encounter for closed fracture (10/28/25) Surgery Performed Operation Date: 10/29/25 15:15 Actual Procedures p Hip Hemiarthroplasty(Right) - Branden Medina MD Physical Therapy Treatment Note M2 PT-IP Current Condition Start: 10/30/25 15:04 Freq: Status: Active Protocol: Document 11/01/25 09:05 SP (Rec: 11/01/25 10:02 SP Desktop) Physical Therapy Current Condition Current Condition Evaluation Date 10/30/25 Treatment Diagnosis R hip hemiarthroplasty post GLF Onset Date 10/28/25 M3 PT-IP Subjective Start: 10/30/25 15:04 Freq: Status: Active Protocol: Document 11/01/25 09:05 SP (Rec: 11/01/25 10:02 SP Desktop) Subjective Physical Therapy Visit Type Type Treatment Note Visit Start Time 09:05 Visit Stop Time 09:43 Notes in room when arrived, stepped out during tx and returned at end. Dr Emerson stopped in end tx. Number of SWITCHBOARD WIRER Visits 1 Physical Therapy Visit Comments Patient Comments Pt agreeable to PT, would like to use restroom. States has meds for pain about 1 hr ago and feeling better, less pain. Patient Goals To go to rehab. Therapy Pain Assessment Pain When Pain Assessed During Mobility Pain Present Pain Present Pain Reported Location Right hip Intensity 2 Scale Used Numeric (0 - 10) Description With Movement Pain Behaviors Facial Grimacing Pain Management Distraction,Timing of Activity with Medications Techniques M4 PT-IP Mobility and Gait Start: 10/30/25 15:04 Freq: Status: Active Protocol: Document 11/01/25 09:05 SP (Rec: 11/01/25 10:02 SP Desktop) PT-Bed Mobility Assessment Supine to Sit Supine to Sit Minimal Assistance,1 Person Assistance,Head of Bed Elevated,Bedrails Sit to Supine Sit to Supine Minimal Assistance,1 Person Assistance,Head of Bed Elevated,Bedrails Scooting Scooting to Edge of Minimal Assistance Bed Scooting Up and Down Minimal Assistance in Bed PT-Transfer Assessment Sit to and From Stand Sit to and from Contact Guard Assistance,Minimal Assistance,1 Person Stand Assistance,Use of Upper Extremities Equipment Transfer Assistive Gait Belt,Front Wheeled Walker Device Transfers Transfer Destination Bed,Toilet Transfer Technique pt ambulated with FWW Transfer Ability Level of Assist Contact Guard Assistance,Use of Upper Extremities Comments Mobility Comments recalled 3/3 precautions MARC, maintained throughout tx. Min A for RLE out/in bed only. CG/Min A Sit<> stand, cues push from surface sitting. Self gillian care (noted blood in urine, notified nursing), assist don brief when seated on toilet. Good static standing unsupported at sink to wash hands. Gait Assessment Gait Gait Assistance Contact Guard Assist Required: Distance (Feet) 100 Assistive Devices Assistive Device Gait Belt,Front Wheeled Walker Gait Deviations General Gait Pattern Decreased Stride Length,Flexed Trunk,Step-to Gait Factors Limiting Gait Function Factors Limiting Decreased Strength,Limited Range of Motion,Pain Gait Function Comments Gait Comments Cues more upright posture, step to gait pattern, progressed with distance bed>bathroom>sink>hallway nursing station and back to bed. No instability of RLE. Good marching step during pivot turn to maintain precautions. Stair Climbing Assessment Comments Stair Climbing Unable to assess due to decreased strength and activity Comments tolerance. Has 3 step at front R HR or 2 steps at back entrance and 15 stairs inside. PT-Balance Assessment Sitting Balance and Reactions Static Sitting Normal Balance Ability Dynamic Sitting Good Balance Ability Standing Balance and Reactions Static Standing Good Balance Ability Dynamic Standing Good Balance Ability Device Used FWW M5 PT-IP Objective Assessments Start: 10/30/25 15:04 Freq: Status: Active Protocol: Document 10/30/25 15:05 NW (Rec: 10/30/25 15:21 NW [id number]) Orientation Orientation/Cognition Level of Alertness Alert Orientation Name,Age,Birthday,Month,Date,Year,Day of Week,Place, Situation Gross Range of Motion Upper Extremity ROM Assessment Within Functional Limits Lower Extremity ROM Assessment Right Impaired Impairments post op pain limited Strength Lower Extremity Strength Assessment Right Impaired Hip 2+/5 flex Knee 3/5 ext Ankle WFL Sensation Assessment Sensation Gross Sensation WNL Muscle Tone Muscle Tone WNL Yes M6 PT-IP Treatment Start: 10/30/25 15:04 Freq: Status: Active Protocol: Document 11/01/25 09:05 SP (Rec: 11/01/25 10:02 SP Desktop) Physical Therapy Treatment Exercises Exercises Ankle Pumps,Gluteal Sets,Quad Sets,Heel Slides,Seated Knee Flexion/Extension Education Education Provided Precautions,Weight Bearing Status,Safety Other Treatments Other Treatment Education on importance of sitting edge of bed for Performed meals secondary to concern to get out of from height and mobilizing with nursing for progress strength and blood circulation. Instructed heel slide with gait belt for support ROM <90 deg hip flexion. M7 PT-IP Assessment and Plan Start: 10/30/25 15:04 Freq: Status: Active Protocol: Document 11/01/25 09:05 SP (Rec: 11/01/25 10:02 SP Desktop) PT Summary Assessment and Plan Potential Rehabilitation Good Potential Status of Condition Evolving at Evaluation Summary Impairments Pain,ROM,Strength,Bed Mobility,Transfers,Gait,Activity Tolerance Progress Towards Progressing Toward Goals Goals Assessment Summary Pt is able to ambulate today at CGA/SBA with step to gait pattern with occasional cues for more upright posture. Improved demonstration maintaining R hip precautions throughout tx. Improved only 2/10 pain 1 hr premedicated. Continue to recommend SNF as pt has stairs to navigate and decreased strength and endurance at this time. Would benefit trial tomorrow. Will continue to assess progress. Goals Bed Mobility Goal Independent Transfer Goal Standby Assistance Gait Goal Standby Assistance Gait Distance 30 Other Goals Stair navigation 12 steps with unilateral railing on R. Days to Meet Goals 5 Frequency of Treatment Frequency Of Once a Day Treatment Treatment Plan Physical Therapy Bed Mobility Training,Transfer Training,Gait Training, Treatment Plan Therapeutic Exercise,Balance Retraining,Discharge Planning,Neuromuscular Re-ed Other bed mobility, transfer, longer distance gait with FWW, Recommendations and trial stair mgt 1 HR and SPC . Next Treatment Focus Precautions Posterior Hip No Hip Flexion > 90 degrees,No Hip Internal Rotation,No Precautions Hip Adduction Other Precautions falls risk Weight Bearing Status Weight Bearing Weight Bear as Tolerated Status Recommendations To Nursing Amount of Assist 1 Person Assist Needed Discharge Recommendations PT Discharge SNF Rehab Recommendations Equipment Needed for Bariatric FWW, bed side commode Home Before Discharge Transportation Needs Wheelchair/Cabulance at Discharge - PT assist 1
[2025-11-01] MEDS: ABIRATERONE 500 MG 1000 EACH PO ×2 (10:54→11:00)
--- NOTE | 2025-11-01 11:00 | OT.IP.TRT ---
Current Diagnoses Unspecified fracture of left femur, initial encounter for closed fracture (10/28/25) Surgery Performed Operation Date: 10/29/25 15:15 Actual Procedures p Hip Hemiarthroplasty(Right) - Branden Medina MD Occupational Therapy Treatment Note M2 OT-IP Current Condition Start: 10/30/25 14:39 Freq: Status: Active Protocol: Document 10/30/25 14:39 [facility] (Rec: 10/30/25 14:56 [facility] Desktop) Occupational Therapy Current Condition Current Condition Evaluation Date 10/30/25 Treatment Diagnosis S/P right hemiarthroplasty, posterior precautions Diagnosis Onset Date 10/29/25 Post Operative Precautions Posterior Hip No Hip Flexion > 90 degrees,No Hip Internal Rotation,No Precautions Hip Adduction Weight Bearing Status Weight Bearing Weight Bear as Tolerated Status M3 OT- IP Subjective and Pain Start: 10/30/25 14:39 Freq: Status: Active Protocol: Document 11/01/25 12:07 [facility] (Rec: 11/01/25 12:12 [facility] Desktop) OT- Subjective Occupational Therapy Visit Type Type Treatment Note Visit Start Time 10:50 Visit Stop Time 11:00 Occupational Therapy Visit Comments Patient Comments Pt too tired to get up, but agreed to go over equipment needs as now feeling that he is capable of going home. Patient/Caregiver TO go home. Goals OT Pain Assessment Pain When Pain Assessed At Rest Pain Present Pain Present Denied Pain M4 OT- IP ADL's Start: 10/30/25 14:39 Freq: Status: Active Protocol: Document 11/01/25 12:07 [facility] (Rec: 11/01/25 12:12 [facility] Desktop) OT ADL-Dressing Comments OT Dressing Comments Suggested pt get LB dressing equipment and also a leg cloth printing back tender. OT ADL-Toileting Comments OT Toileting Pt will benefit from BSC. Comments M5 OT- IP IADL's Start: 10/30/25 14:39 Freq: Status: Active Protocol: Document 10/30/25 14:39 [facility] (Rec: 10/30/25 14:56 [facility] Desktop) OT-Instrumental Activities of Daily Living Home Safety Awareness Awareness of Need Good Awareness for Assistance at Home Meal Preparation Meal Preparation Caregiver Provides Assist Marble Setter Marble Setter Caregiver Provides Assist M6 OT- IP Functional Cognition Start: 10/30/25 14:39 Freq: Status: Active Protocol: Document 11/01/25 12:07 [facility] (Rec: 11/01/25 12:12 [facility] Desktop) Cognitive Factors Limiting Selfcare Function Cognitive Comments Cognitive Assessment Pt able to recall all his hip precautions and state and Comments demonstrate good positioning needs. M7 OT- IP Mobility and Balance Start: 10/30/25 14:39 Freq: Status: Active Protocol: Document 10/30/25 14:39 [facility] (Rec: 10/30/25 14:56 [facility] Desktop) OT- Bed Mobility Assessment Supine to Sit Supine to Sit Assist Minimal Assistance Sit to Supine Sit to Supine Assist Moderate Assistance Scooting Scooting to Edge of Minimal Assistance Bed OT-Transfer Assessment Sit to and From Stand Sit to and from Minimal Assistance,Moderate Assistance Stand Technique Transfer Technique Stand Step Pivot Devices Transfer Assistive Gait Belt,Front Wheeled Walker Devices Comments Mobility Comments Assist to move his RLE to the edge of the bed. ERIK to stand from high surface and able to heavily use BUE on the armrests of the bariatric FWW so able to take side step to the head of the bed. Pt initially needing his right knee to be blocked for stability. Pt's BP supine 157/80, sitting 179/89, and after 166/89. OT- Balance Assessment Sitting Balance and Reactions Static Sitting Normal Balance Ability Dynamic Sitting Good Balance Ability Standing Balance and Reactions Static Standing Fair Balance Ability Dynamic Standing Fair Balance Ability Comments Other Balance Tests/ Pt tends to lean to the left due to pain on right hip. Deviations/Treatment : M8 OT- IP Objective Assessments Start: 10/30/25 14:39 Freq: Status: Active Protocol: Document 10/30/25 14:39 [facility] (Rec: 10/30/25 14:56 [facility] Desktop) OT Gross Range of Motion Upper Extremity Range of Motion Assessment Within Functional Limits OT Strength Upper Extremity Strength Assessment Within Functional Limits Comments Strength Comments Grossly WFL. M9 OT- IP Assessment and Plan Start: 10/30/25 14:39 Freq: Status: Active Protocol: Document 11/01/25 12:07 [facility] (Rec: 11/01/25 12:12 [facility] Desktop) OT Summary Assessment and Plan Potential Rehabilitation Good Potential Analytic Complexity Moderate at Evaluation Summary OT Impairments Pain,Strength,Balance,Functional Mobility,Grooming, Dressing,Toileting,Bathing,Toilet Transfers,Shower Transfers,Activity Tolerance Progress Towards Progressing Toward Goals Goals Assessment Summary Pt states feeling and doing better. Able to reconfirm list of equipment needs for pt. Pt's to get equipment ( Lb dressing eq, BSC, bariatric FWW, [facility] Pt main barriers is steps still. If pt able to do steps looking to go home with 24/7 assist and home health. Goals Self-Feeding Goal Independent Grooming Goal Independent Dressing Goal Minimal Assistance Toileting Goal Independent Bathing Goal Minimal Assistance Toilet Transfer Goal Independent Shower Transfer Goal Standby Assistance Days to Meet Goals 14 Frequency of Treatment Other frequency 5x/week Treatment Plan OT Treatment Plan ADL Training,Functional Mobility,Patient/Family Education,Discharge Planning Other Treatment LB dressing Recommendations and Next Treatment Focus Discharge Recommendations OT Discharge Home with 24/7 Assist Available,Home Health,SNF Rehab, Recommendations Home vs SNF Transportation Needs Private Vehicle at Discharge
[2025-11-01 12:00] VITALS: BP 131/73; PULSE 85; RESP 17; TEMP 36.1; O2SAT 95
[2025-11-01] MEDS: VENLAFAXINE ER 37.5 MG CAP PO ×2 (13:03→13:06)
--- NOTE | 2025-11-01 14:30 | P.PN_ITS ---
Subjective Subjective Date Patient Seen: 11/01/25 Time Patient Seen: 09:23 Interval history: This is a 75 years old male with hypertension, hyperlipidemia, gout, prostate cancer, GERD, alcohol abuse, DVT on Eliquis who presented to the ER with a ground-level fall at the bar where he had been drinking Vodka, landing on his right hip and immediately after that experiencing severe hip pain. The patient was drinking alcohol so had a level of 159. Denies any other symptoms. The patient was diagnosed with left leg DVT in March after he had an abdominal surgery and was placed on Eliquis. Laboratory unremarkable except for a potassium of 3.0, now up to 3.5. X-ray of the hip shows minimally displaced fracture of the right proximal femur. Head CT unremarkable. 10/30: Postop day 1. Right hip hemiarthroplasty. Hemoglobin 10.1. BNP and liver function tests normal. Magnesium 1.5 so we will be given a dose of IV magnesium in addition to daily oral magnesium. His right foot has been making restless type movements. Consider starting on ropinirole. RLS maybe anemia related. 10/31: Postop day 2. Right hip hemiarthroplasty. He describes a ?bad night? with right foot cramps. We will start him on Robaxin for that. Electrolytes are all normal. The hemoglobin is 9.7. He is pending a possible discharge to [facility] long-term facility soon. 11/01: The patient is up and walking without limitation. He was very optimistic and hoping for discharge home tomorrow. He has 3 entry steps. He was not able to walk stairs morning. GENERAL: This is a well-nourished, well-developed patient, in no apparent distress. EYES: Pupils equal round and reactive. Extraocular motions intact. No scleral icterus. No injection or drainage. ENT: Mucous membranes pink and moist. NECK: Trachea midline. No JVD, bruits or lymphadenopathy. Supple, nontender, no meningeal signs. CARDIOVASCULAR: Regular rate and rhythm without murmurs, gallops, or rubs. RESPIRATORY: Clear to auscultation. GASTROINTESTINAL: Abdomen soft, non-tender, nondistended. EXTREMITIES: No clubbing, cyanosis, or edema. NEUROLOGIC: Alert, oriented, speech fluent, full upper and lower motor strength, no focal deficits evident. DERMATOLOGIC: No rashes or skin lesions. Assessment & Plan Left femoral fracture after ground-level fall. -Eliquis for h/o DVT -weightbearing and PT/OT per Orthopedics. -Pain medications as needed -Bowel regimen while on narcotics -Fall precaution -PT and OT evaluation for discharge home with HH tomorrow -methocarbamol for right foot cramps. Electrolytes normal. Hypertension. Continue lisinopril. Hydralazine as needed. Prostate cancer. Continue and Zytiga and prednisone Gout. Continue allopurinol. Hypokalemia/hypomagnesemia -replenish potassium/magnesium. Resolved -Recheck electrolytes daily Alcohol abuse with intoxication. -He states that he has abstained for 1 or 2 weeks at a time without any withdrawal symptoms. -continue CIWA and monitor for any withdrawal symptoms. -Venlafaxine Resume home Eliquis for recurrent DVT prevention Exam Vital Signs (past 8 hours): - 11/01/25 07:30 11/01/25 08:00 11/01/25 12:00 Temperature 97.7 F 97.0 F L Pulse Rate 84 85 Respiratory Rate 16 17 Blood Pressure 144/77 H 131/73 Pulse Oximetry 98 95 Oxygen Delivery Method Room Air Oxygen Delivery Method Room Air Oxygen Flow Rate 0 Objective Labs 10/31/25 09:08 11/01/25 06:20 Labs: Laboratory Results - last 24 hr 11/01/25 06:20 Sodium 134 L Potassium 4.0 Chloride 106 Carbon Dioxide 26 BUN 9 Creatinine 0.54 L Estimated GFR > 60 BUN/Creatinine Ratio 16.7 Glucose 112 H Calcium 9.1 Magnesium 1.9 PFSH Medical History Prostate cancer metastatic to intrapelvic lymph node History of malignant neoplasm of prostate Biochemically recurrent malignant neoplasm of prostate H/O ETOH abuse Elective surgery Gout GERD (gastroesophageal reflux disease) Elevated cholesterol HTN (hypertension) Surgical History Hx of sinus surgery History of shoulder surgery S/P excision of vocal cord nodule Hx of prostatectomy Family History Brother Cancer Gout Mother Stroke Social History marital status: number of children: 5 household members: spouse Previous occupational history: [employer] retired [employer] Tobacco: How many years used: 40 alcohol intake: current caffeine: Yes additional social history: The patient admits to smoking cigarettes but does not drink alcohol or use any drugs. Quality VTE Deep Vein Thrombosis/Pulmonary Embolism Present on Admission: No [facility] PROFEE Dealer Analyst Document charge(s): No Charge Codes Subsequent inpatient/observation care: [id number]
[2025-11-01 16:00] VITALS: BP 132/72; PULSE 88; RESP 17; TEMP 36.6; O2SAT 98
[2025-11-01 20:00] VITALS: BP 127/65; PULSE 77; RESP 17; TEMP 35.6; O2SAT 94
[2025-11-02] VITALS: BP 133/71; PULSE 62; RESP 17; TEMP 35.8; O2SAT 96
[2025-11-02] MEDS: ACETAMINOPHEN 325 MG TABLET 650 MG PO ×2 (06:14→13:06)
[2025-11-02 08:00] VITALS: BP 140/66; PULSE 80; RESP 20; TEMP 36; O2SAT 94
[2025-11-02] MEDS: MAGNESIUM HYDROXIDE 30 ML UDC PO (09:24)
[2025-11-02] MEDS: DOCUSATE 100 MG CAPSULE PO (09:24)
[2025-11-02] MEDS: MAGNESIUM OXIDE 400 MG TABLET PO (09:24)
[2025-11-02] MEDS: APIXABAN 5 MG TABLET PO (09:24)
[2025-11-02] MEDS: MULTIVITAMIN 1 TABLET 1 TAB PO (09:24)
[2025-11-02] MEDS: SODIUM CHLORIDE 0.9% FLUSH 10 ML IV (09:32)
--- NOTE | 2025-11-02 09:53 | PM.PN.IH.1 ---
Subjective Subjective Interval history: PATIENT SUMMARY Clay To, a 75-year-old male, is being seen following a right hip hemiarthroplasty for a femoral neck fracture. PAST SURGICAL HISTORY - Right hip hemiarthroplasty performed by Dr. Medina. SUBJECTIVE The patient reports that the initial postoperative period was quite painful, but he is now feeling better. He mentioned, It's pretty painful to start with, but yeah, I'm doing better now. The patient noted that he had the dressing replaced, which is now clean. He also reported having no prior joint replacements. Physical therapy noted he was using a step-to gait pattern with occasional cues for more upright posture and demonstrated maintenance of right posterior hip precautions. He stated, The PT people are going to check me out today to be able to go up and down the stairs. He expressed a strong desire to go home for recovery if possible. PHYSICAL EXAM Constitutional: - Alert and oriented, engaging in conversation appropriately. Musculoskeletal: - Right hip examination shows an Aquacel dressing with very mild strikethrough. - Intact plantar flexion and dorsiflexion of the hallux and ankle. - Probable PT pulse, intact femoral nerve function evidenced by ability to extend the quad and flex the hip. - Minimal pain with hip range of motion today. LABS Hemoglobin 9.4 (10/31) ASSESSMENT - Right hip hemiarthroplasty post-femoral neck fracture mobilizing well enough to potentially discharge home. PLAN - Weightbearing as tolerated with posterior hip precautions. - Continue current medication for DVT prophylaxis (Eliquis). - Encourage patient education via hospital's YouTube channel for hip replacement recovery tips. - Followup in 2 weeks at [facility] for wound check DISPOSITION Patient plans to discharge to home pending PT evaluation of safety during stair navigation. FOLLOWUP Follow up with [facility] two weeks postop. X-rays should be taken at the follow-up visit. Exam Vital Signs (past 8 hours): - 11/02/25 08:00 Temperature 96.8 F L Pulse Rate 80 Respiratory Rate 20 Blood Pressure 140/66 Pulse Oximetry 94 Oxygen Flow Rate 0 Oxygen Delivery Method Room Air Oxygen Flow Rate 0 Objective Labs 10/31/25 09:08 11/01/25 06:20 [facility] Medical History Prostate cancer metastatic to intrapelvic lymph node History of malignant neoplasm of prostate Biochemically recurrent malignant neoplasm of prostate H/O ETOH abuse Elective surgery Gout GERD (gastroesophageal reflux disease) Elevated cholesterol HTN (hypertension) Surgical History Hx of sinus surgery History of shoulder surgery S/P excision of vocal cord nodule Hx of prostatectomy Family History Brother Cancer Gout Mother Stroke Social History marital status: number of children: 5 household members: spouse Previous occupational history: [employer] retired [employer] Tobacco: How many years used: 40 alcohol intake: current caffeine: Yes additional social history: The patient admits to smoking cigarettes but does not drink alcohol or use any drugs. Assessment & Plan Time-Based Coding :: [TOTAL MINUTES] spent with patient and on the chart (including review of chart, obtaining history, exam, reviewing outside data, placing orders, documenting exam and treatment plan, and counseling patient) on [DATE]. Quality VTE Deep Vein Thrombosis/Pulmonary Embolism Present on Admission: No [facility] PROFEE Still Operator Batch Or Continuous Document charge(s): Yes
[2025-11-02] MEDS: ABIRATERONE 500 MG 1000 EACH PO (11:46)
--- NOTE | 2025-11-02 11:57 | PM.DS.IH.1 ---
History of Present Illness History of Present Illness Date Patient Seen: 11/02/25 Time Patient Seen: 07:45 Chief complaint: GLF + thinners Narrative: This is a 75 years old male with hypertension, hyperlipidemia, gout, prostate cancer, GERD, alcohol abuse, DVT on Eliquis who presented to the ER with a ground-level fall at the bar where he had been drinking Vodka, landing on his right hip and immediately after that experiencing severe hip pain. The patient was drinking alcohol so had a level of 159. Denies any other symptoms. The patient was diagnosed with left leg DVT in March after he had an abdominal surgery and was placed on Eliquis. Laboratory unremarkable except for a potassium of 3.0, now up to 3.5. X-ray of the hip shows minimally displaced fracture of the right proximal femur. Head CT unremarkable. Discharge Providers Provider Date of admission: 10/28/25 22:37 Discharge Date: 11/02/25 Primary care physician: Ashok Marie MD Consults: 10/28/25 22:34 Consult to Orthopedic Surgery Stat Comment: Consulting Provider: Branden Medina Reason for consultation: hip fracture Has provider been notified: Yes 10/28/25 22:39 Consult to Discharge Planning Routine Comment: Consult to Occupational Therapy Evaluate & Treat Comment: Physician Instructions: Evaluate and treat Consult to Physical Therapy Evaluate & Treat Comment: Physician Instructions: Evaluate and Treat 10/29/25 19:44 Consult to Occupational Therapy Evaluate & Treat Comment: posterior hip precautions Physician Instructions: Evaluate and treat Consult to Physical Therapy Evaluate & Treat Comment: posterior hip precautions Physician Instructions: Evaluate and Treat 10/29/25 21:57 Consult to Pharmacy Routine Comment: med rec Discharge provider: Linwood Arnett MD Summary Hospital Course Discharge Diagnosis: 1. Right femoral fracture due to ground level fall, likely pathologic in the setting of osteoporosis 2. Metastatic prostate cancer. 3. Hypertension. 4. Gout. 5. Hypokalemia/hypomagnesemia, resolved 6. Alcohol use disorder with intoxication, resolved. 7. Acute blood loss anemia due to hip fracture and surgical blood loss. Hospital Course: 10/30: Postop day 1. Right hip hemiarthroplasty. EBL 200cc. Hemoglobin 10.1. BNP and liver function tests normal. Magnesium 1.5 so we will be given a dose of IV magnesium in addition to daily oral magnesium. His right foot has been making restless type movements. Consider starting on ropinirole. RLS maybe anemia related. 10/31: Postop day 2. Right hip hemiarthroplasty. He describes a ?bad night? with right foot cramps. We will start him on Robaxin for that. Electrolytes are all normal. The hemoglobin is 9.7. He is pending a possible discharge to [facility] soon. 11/01: The patient is up and walking without limitation. He was very optimistic and hoping for discharge home tomorrow. He has 3 entry steps. He was not able to walk stairs morning. 11/02: Pending stair safety assessment with physical therapy he will be discharged home today. He is feeling well and highly motivated to return home. Status at Discharge Cognitive/behavioral status at discharge: oriented Functional status at discharge: uses cane/walker Overall status at discharge: patient is progressing back to baseline Time Spent with Patient Time spent: Less than 30 minutes Exam Vital Signs (past 8 hours): - 11/02/25 08:00 Temperature 96.8 F L Pulse Rate 80 Respiratory Rate 20 Blood Pressure 140/66 Pulse Oximetry 94 Oxygen Flow Rate 0 Oxygen Delivery Method Room Air Oxygen Flow Rate 0 Narrative Exam Narrative: GENERAL: This is a well-nourished, well-developed patient, in no apparent distress. EYES: Pupils equal round and reactive. Extraocular motions intact. No scleral icterus. No injection or drainage. ENT: Mucous membranes pink and moist. NECK: Trachea midline. No JVD, bruits or lymphadenopathy. Supple, nontender, no meningeal signs. CARDIOVASCULAR: Regular rate and rhythm without murmurs, gallops, or rubs. RESPIRATORY: Clear to auscultation. GASTROINTESTINAL: Abdomen soft, non-tender, nondistended. EXTREMITIES: No clubbing, cyanosis, or edema. Right hip bandage in place, clean, dry and intact. NEUROLOGIC: Alert, oriented, speech fluent, full upper and lower motor strength, no focal deficits evident. DERMATOLOGIC: No rashes or skin lesions. Objective Imaging *: Radiologist's impression: 1. Right hip x-ray 10/28/2025: Minimally displaced transcervical fracture of the right proximal femur. 2. Head CT 10/28/2025: No acute intracranial pathology. Nonspecific hypodensity within the medulla, favored artifactual secondary to streak artifact at the skull base. 3. Cervical spine CT 10/28/2025: No displaced fracture or traumatic subluxation. 4. Right hip x-ray 10/29/2025: Interval right hip ginger arthroplasty. No hardware failure. No dislocation. Mild degenerative change left hip. Surgical roselyn project over the pelvis and right thigh skin. Expected postoperative soft tissue gas. Labs 10/31/25 09:08 11/01/25 06:20 [facility] Medical History Biochemically recurrent malignant neoplasm of prostate Elective surgery Elevated cholesterol GERD (gastroesophageal reflux disease) Gout H/O ETOH abuse History of malignant neoplasm of prostate HTN (hypertension) Prostate cancer metastatic to intrapelvic lymph node Surgical History History of shoulder surgery Hx of prostatectomy Hx of sinus surgery S/P excision of vocal cord nodule Family History Brother Cancer Gout Mother Stroke Social History marital status: number of children: 5 household members: spouse Previous occupational history: [employer] Tobacco: How many years used: 40 alcohol intake: current caffeine: Yes additional social history: The patient admits to smoking cigarettes but does not drink alcohol or use any drugs. Discharge Plan Discharge Plan Patient Disposition: Home Health Service Provider Discharge Comment: PROCEDURE: Right Hip Hemiarthroplasty SURGEON: Dr. Medina DATE: 10/29/25 ACTIVITY INSTRUCTIONS o You are weight bearing as tolerated to the right lower extremity with a front wheeled walker at all times. We encourage active movement of the toes and ankle every hour while awake to prevent stiffness. o Please follow posterior hip precautions to prevent hip dislocation. Do not cross your legs or point your toes inward o Do not drive while taking narcotic medications and recovering from your surgery. DRESSING CARE o You have an aquacell dressing on top of your incision. This is a waterproof dressing and so you may shower with the dressing so long as the dressing remains clean and dry to the surgical site. Leave the dressing in place until your follow up in the orthopedic clinic. If the dressing becomes saturated or is disrupted call our office for further guidance. o Your skin was closed with roselyn which are under the dressing and will be removed at a post operative appointment at your surgeon?s discretion. POST-OPERATIVE INSTRUCTIONS o If you notice fever, chills, night sweats, redness, excessive drainage or bleeding, a sharp increase in pain that persists after taking pain medication, pain in your calf muscles, chest pain or trouble breathing please unwrap the dressing and investigate. Then call the office with findings for further guidance. If it is after regular clinic hours, please seek care in the emergency department. o In the rare case of any severe chest pain and trouble breathing, seek immediate care, do not delay for a call to the clinic. o Use ice to the affected extremity for 15 minutes increments as needed. Use your ice machine as discussed in your pre-operative visit. o Keep extremity elevated to the level of the heart to reduce swelling. You can use ice on top of the dressing to reduce pain and swelling of the extremity. o You may gradually resume your normal diet if you have no nausea or vomiting o You will follow up with your orthopedic surgeon in the [facility] 2 weeks after surgery. Our office should call your to schedule the appointment, however you can call our office at [phone] to schedule your appointment or address any questions or concerns. MEDICATIONS o Take two pills of 500 mg Tylenol (acetaminophen) every 8 hours regardless of pain in a scheduled manner. Do not exceed 3000 mg of Tylenol (from ALL sources, including over the counter combination products) in a 24-hour period due to risk of liver injury. o Take one pill of 5 mg oxycodone every 4-6 hours as needed for break through pain after taking your regular Tylenol. o Take 200 mg of Colace by mouth every 12 hours for constipation. Narcotic medications such as oxycodone and tramadol as well as anesthesia may increase your risk of constipation after surgery. o Take 4 mg of Zofran by mouth every 6 hours as needed for uncontrolled nausea or vomiting. If you have persistent nausea and vomiting call our office or seek care in the emergency department. o Resume eliquis for DVT prophylaxis as prescribed o Resume all of your normal home medications unless specified otherwise by your surgeon or the internal medicine doctor during your admission. Nursing Discharge Comment: Leave aquacel dressing in place until follow up appointment. May shower as long as dressing is intact. Discharge orders & Medications Prescriptions: New methocarbamol 500 mg Tablet 500 mg PO TID PRN (Reason: Muscle Spasm) Qty: 20 0RF docusate sodium 100 mg Capsule 100 mg PO BID Qty: 60 0RF oxycodone 5 mg Tablet 5 mg PO Q3H PRN (Reason: Pain, Severe (7-10)) Qty: 12 0RF Continued abiraterone 500 mg tablet 1,000 mg PO QAM venlafaxine 37.5 mg capsule,extended release 24hr 37.5 mg PO DAILY prednisone 5 mg tablet 5 mg PO DAILY acetaminophen [Tylenol] 325 mg Tablet 1,300 mg PO Q8HR PRN (Reason: Pain (Scale Score 4-6)) Eliquis DVT-PE Treat 30D Start 5 mg (74 tabs) tablets,dose pack See Rx Instructions .ROUTE .COMPLEX Qty: 74 0RF Rx Instructions: orally per package directions allopurinol 100 mg Tablet 300 mg PO QPM lisinopril 10 mg tablet 20 mg PO DAILY Follow up/Referrals: Ashok Marie MD [Primary Care Provider, Family Practice] Diet/Activity/Treatments Diet: Diet as Tolerated Visit Report/Discharge Packet Instructions: DI for Hip Replacement, DI for Constipation, How to Prevent Falls, DI for Prescription Opioid Use Stand Alone Forms: [employer], Patient Portal/API, Stroke Signs & Symptoms, Influenza Vaccine Info, Notice of Privacy Practices, Inpatient vs Outpatient, Pneumococcal Vaccine Info, Pt. Rights & Responsibilities, Surgery Discharge Discharge Data Primary Care Provider: Ashok Marie Quality VTE Deep Vein Thrombosis/Pulmonary Embolism Present on Admission: No MIPS - Admit I confirm the patient?s Advance Care Plan is present, Code status is documented, Surrogate decision maker is in patient?s record [If Yes, STOP here]: Yes MIPS - Meds 'Current medications' to include all prescriptions, [id number] products, herbals, cannabis/cannabidiol products, and vitamin/mineral/dietary (nutritional) supplements. I have utilized all available resources to obtain, update, or review the patient?s current medications. [If Yes, STOP here]: Yes MIPS - DC The patient has a history of heart transplant or Left Ventricular Assist Device (LVAD). If yes, STOP here.: No The patient has current or prior documentation of left ventricular ejection fraction (LVEF) less than or equal to 40%, or moderate or severely depressed left ventricular systolic function.: No A. The patient was prescribed or already taking an Angiotensin-Converting Enzyme (ASHLEY) Inhibitor, or Angiotensin Receptor Karin (ARB).: Yes B. The patient was prescribed or already taking a beta-karin. [If Yes to Both A & B, STOP here]: No Patient not prescribed/taking ASHLEY or ARB, no reason given.: No Patient not prescribed/taking beta-karin, no reason given.: No IH PROFEE Charge Codes Discharge inpatient/observation: 57082 Lab Results Common Lab Results- Last: WBC, (4.5-11.0) 6.9 X10^3/uL 10/31/25 RBC, (4.5-5.9) 2.79 X10^6/uL L 10/31/25 Hgb, (13.5-17.5) 9.4 g/dL L 10/31/25 Hct, (41-53) 27.1 % L 10/31/25 MCV, (80-100) 97.3 fL 10/31/25 MCH, (26-34) 33.7 PG 10/31/25 MCHC, (30-36) 34.6 % 10/31/25 RDW, (11.6-14.8) 12.7 % 10/31/25 Plt Count, (150-400) 176 X10^3/uL 10/31/25 Neut % (Auto), (50-75) 78.1 % H 10/31/25 Lymph % (Auto), (25-40) 13.5 % L 10/31/25 Simpson % (Auto), (3-14) 7.6 % 10/31/25 Eos % (Auto), (2-4) 0.5 % L 10/31/25 Baso % (Auto), (0-2) 0.3 % 10/31/25 Neut # (Auto), (3509-4069) 5400 /uL 10/31/25 Sodium, (137-145) 134 mmol/L L 11/01/25 Potassium, (3.4-5.1) 4.0 mmol/L 11/01/25 Chloride, (98-107) 106 mmol/L 11/01/25 Carbon Dioxide, (22-32) 26 mmol/L 11/01/25 BUN, (9-20) 9 mg/dL 11/01/25 Creatinine, (0.66-1.25) 0.54 mg/dL L 11/01/25 Estimated GFR, (>60) > 60 mL/min 11/01/25 BUN/Creatinine Ratio, (6-22) 16.7 11/01/25 Glucose, (70-99) 112 mg/dL H 11/01/25 Calcium, (8.4-10.2) 9.1 mg/dL 11/01/25 Total Bilirubin, (0.2-1.3) 0.6 mg/dL 10/31/25 AST, (17-59) 18 IU/L 10/31/25 ALT, (<50) 12 IU/L 10/31/25 Alkaline Phosphatase, (38-126) 74 U/L 10/31/25 Total Protein, (6.3-8.2) 5.0 g/dL L 10/31/25 Albumin, (3.5-5.0) 2.7 g/dL L 10/31/25 Globulin, (1.7-4.1) 2.3 g/dL 10/31/25 Albumin/Globulin Ratio, (1.0-2.8) 1.2 10/31/25 Triglycerides, (35-150) 96 mg/dL 12/01/17 Cholesterol, (140-199) 129 mg/dL L 12/01/17 HDL Cholesterol, (40-60) 77.0 mg/Dl H 12/01/17 ALT, (<50) 12 IU/L 10/31/25 Prostate Specific Ag, (0.10-4.00) < 0.064 ng/mL L 10/01/25 AST, (17-59) 18 IU/L 10/31/25 BUN, (9-20) 9 mg/dL 11/01/25 Creatinine, (0.66-1.25) 0.54 mg/dL L 11/01/25 Estimated GFR, (>60) > 60 mL/min 11/01/25 BUN/Creatinine Ratio, (6-22) 16.7 11/01/25 Cholesterol, (140-199) 129 mg/dL L 12/01/17 Hgb, (13.5-17.5) 9.4 g/dL L 10/31/25 RBC, (4.5-5.9) 2.79 X10^6/uL L 10/31/25 Hct, (41-53) 27.1 % L 10/31/25 Lipase, (23-300) 885 U/L H 06/24/25 Plt Count, (150-400) 176 X10^3/uL 10/31/25 Prostate Specific Ag, (0.10-4.00) < 0.064 ng/mL L 10/01/25 PSA Post Prostatectomy, (()-) 0.08 ng/mL 12/01/17 PT, (9.4-12.5) 10.9 SECONDS 05/31/25 INR, (0.9-1.3) 1.0 05/31/25
[2025-11-02] MEDS: VENLAFAXINE ER 37.5 MG CAP PO (13:03)
--- NOTE | 2025-11-02 13:17 | CM.DPC ---
Patient profile sent to [facility].
--- NOTE | 2025-11-02 14:26 | PC.NURSE ---
Discharge: Pt feels ready to d/c to home. Was able to climb the stairs w/PT and they gave approval he is ready for home and safe. Tolerates diet w/out problems, he got some mom and has different things he can do at home for constipation. Seen by MD given approval to go home. Reviewed d/c packet. RX has been esnt. Questions answered. Pt d/c to home via his auto.dd. Pt d/c to home via auto with spouse.
== END 2025-11-02 13:48 | disposition home health service (06) | DRG 522 ==
LOC: ED 22:30 → AC 22:38
PROVIDERS: Orthopaedic Surgery; Admitting Provider Internal Medicine; Emergency Provider Emergency Medicine; PCP Family Medicine; Referring Provider Emergency Medicine; Visit Provider Internal Medicine
PROC: 0SRR0JZ Replacement of Right Hip Joint, Femoral Surface with Synthetic Substitute, Open Approach (ICD-10-PCS; CPT 27125; principal; 2025-10-29 15:15)
DX: M80.051A Age-related osteoporosis with current pathological fracture, right femur, initial encounter for fracture (principal); D62 Acute posthemorrhagic anemia; C79.9 Secondary malignant neoplasm of unspecified site; E87.6 Hypokalemia; F10.129 Alcohol abuse with intoxication, unspecified; F17.210 Nicotine dependence, cigarettes, uncomplicated; I10 Essential (primary) hypertension; M10.9 Gout, unspecified; C61 Malignant neoplasm of prostate; E83.42 Hypomagnesemia; Y90.6 Blood alcohol level of 120-199 mg/100 ml; Z79.52 Long term (current) use of systemic steroids; Z86.718 Personal history of other venous thrombosis and embolism; Z79.01 Long term (current) use of anticoagulants
CPT/HCPCS: 36415; 70450; 72125; 73502; 80048; 80053; 80320; 83735; 83880; 84145; 84484; 85025; 96365; 96366; 96375; 96376; 97116; 97161; 97166; 97530; 99283; 99284; C1776; C1713; J0131; J0165; J0689; J1100; J1171; J2405; J2704; J3010; J3475; J3490; J7030; J7050; J7120